=== PATIENT | female | born 1960 | race Caucasian/White ===

== ENCOUNTER 2023-04-19 09:14 | Outpatient (OUT) | payer OTHER, SELFPAY ==
[2023-04-19 09:37] LABS: Basophils Percent Auto 0.7 % (0.2-2.0); Eosinophils Absolute Auto 0.2 10^3/uL (0.0-0.7); Eosinophils Percent Auto 3.3 % (0.9-7.0); Hematocrit 39.3 % (36.0-48.0); Immature Granulocytes Abs Auto 0.02 10^3/uL (0.00-0.03); Immature Granulocytes Pct Auto 0.4 % (0.0-0.5); Lymphocytes Absolute Auto 1.3 10^3/uL (1.2-3.8); Lymphocytes Percent Auto 28.6 % (20.5-60.0); Mean Corpuscular HGB Conc 33.1 g/dL (29.9-35.2); Mean Corpuscular Hemoglobin 31.3 pg (26.7-34.0); Mean Corpuscular Volume 94.5 fL (81.0-99.0); Mean Platelet Volume 9.5 fL (9.5-13.5); Monocytes Absolute Auto 0.3 10^3/uL (0.3-0.8); Monocytes Percent Auto 6.8 % (1.7-12.0); Neutrophils Absolute Auto 2.7 10^3/uL (1.4-6.5); Neutrophils Percent Auto 60.2 % (43.0-75.0); Platelet Count 236 10^3/uL (150-450); Red Blood Count 4.16 10^6/uL (4.20-5.40); Red Cell Distribution Width 11.9 % (11.0-15.0); White Blood Count 4.5 10^3/uL (4.0-11.0)
[2023-04-19 09:59] LABS: Alanine Aminotransferase 29 U/L (14-59); Albumin Globulin Ratio 1.1; Albumin Level 3.9 g/dL (3.4-5.0); Alkaline Phosphatase 78 U/L (46-116); Aspartate Amino Transferase 15 U/L (15-37); BUN Creatinine Ratio 20.3; Bilirubin Total 1.6 mg/dL (0.2-1.0); Carbon Dioxide 29.9 mmol/L (21.0-32.0); Chloride 102 mmol/L (98-107); Chol HDL Ratio 3.2; Cholesterol 234 mg/dL (<=200); Estimated GFR (African America >60 (>=60); Estimated GFR (Non-African Ame >60 (>=60); Globulin 3.5 g/dL; Glucose 108 mg/dL (74-106); HDL Cholesterol 74 mg/dL (40-60); Potassium 3.9 mmol/L (3.5-5.1); Sodium 141 mmol/L (136-145); Thyroid Stimulating Hormone 0.462 uIU/mL (0.358-3.740); Total Protein 7.4 g/dL (6.4-8.2); Triglycerides 88 mg/dL (<=150); VLDL CHOLESTEROL 17.6 mg/dL
== END 2023-04-19 09:15 | disposition home or self-care (01) ==
LOC: LAB 09:17
PROVIDERS: PCP Internal Medicine; Visit Provider Internal Medicine
DX: Z00.00 Encounter for general adult medical examination without abnormal findings (principal); I10 Essential (primary) hypertension; E06.3 Autoimmune thyroiditis; E78.00 Pure hypercholesterolemia, unspecified
CPT/HCPCS: 36415; 80053; 80061; 84443; 85025

== ENCOUNTER 2023-04-28 09:02 | Outpatient (OUT) | payer OTHER, SELFPAY ==
--- NOTE | 2023-04-28 09:07 | MM_ITS ---
Patient Name: JAZLYN STEVEN MR#: [id number] : 1960 Exam Date: 04/28/2023 Ordering Doctor: DR Fco Glasgow D.O. RADIOLOGY REPORT PROCEDURE: MM TOMOSYNTHESIS SCREENING BI COMPARISON: MG MAMM SCREEN 3D RADHA CAD, 04/27/2022. MG MAMM SCREEN 3D RADHA CAD, 04/25/2021. MG MAMM SCREEN 3D RADHA CAD, 04/05/2020. INDICATIONS: Screening Calculator Name NCI Breast Cancer Risk Assessment Tool 5 Year Breast Cancer Risk 1.60% Lifetime Breast Cancer Risk 7.30% Personal Breast Cancer No Personal Ovarian Cancer No Treatments None Family Cancers Aunt-maternal with breast cancer at age 78; Uncle-maternal with lung cancer at age 65. LOCATION: [facility] BREAST COMPOSITION: Heterogeneously dense,which may obscure small masses. FINDINGS: DIAGNOSTIC CATEGORY 2--BENIGN FINDING: RIGHT BREAST: No significant suspicious finding. Scattered benign-appearing calcifications are present. No significant change has occurred. LEFT BREAST: No significant suspicious finding. Scattered benign-appearing calcifications are present. No significant change has occurred. RECOMMENDATIONS: ROUTINE MAMMOGRAM AND CLINICAL EVALUATION IN 12 MONTHS. PLEASE NOTE: A NORMAL MAMMOGRAM DOES NOT EXCLUDE THE POSSIBILITY OF BREAST CANCER. A CLINICALLY SUSPICIOUS PALPABLE LUMP SHOULD BE BIOPSIED. Dictated by: Louis Bahena M.D. on 04/28/2023 at 14:31 Approved by: Louis Bahena M.D. on 04/28/2023 at 14:33
== END 2023-04-28 09:03 | disposition home or self-care (01) ==
LOC: MAMMO 09:03
PROVIDERS: PCP Internal Medicine; Visit Provider Internal Medicine
DX: Z12.31 Encounter for screening mammogram for malignant neoplasm of breast (principal); Z80.3 Family history of malignant neoplasm of breast; Z80.1 Family history of malignant neoplasm of trachea, bronchus and lung
CPT/HCPCS: 77063; 77067

== ENCOUNTER 2024-04-24 08:00 | Outpatient (OUT) | payer OTHER, SELFPAY ==
[2024-04-24 08:32] LABS: Basophils Percent Auto 0.6 % (0.2-2.0); Eosinophils Absolute Auto 0.1 10^3/uL (0.0-0.7); Eosinophils Percent Auto 3.4 % (0.9-7.0); Hematocrit 38.3 % (36.0-48.0); Hemoglobin 12.9 g/dL (12.0-16.0); Immature Granulocytes Abs Auto 0.01 10^3/uL (0.00-0.03); Immature Granulocytes Pct Auto 0.3 % (0.0-0.5); Lymphocytes Absolute Auto 1.2 10^3/uL (1.2-3.8); Lymphocytes Percent Auto 36.5 % (20.5-60.0); Mean Corpuscular HGB Conc 33.7 g/dL (29.9-35.2); Mean Corpuscular Hemoglobin 31.4 pg (26.7-34.0); Mean Corpuscular Volume 93.2 fL (81.0-99.0); Mean Platelet Volume 9.4 fL (9.5-13.5); Monocytes Absolute Auto 0.2 10^3/uL (0.3-0.8); Monocytes Percent Auto 7.4 % (1.7-12.0); Neutrophils Absolute Auto 1.7 10^3/uL (1.4-6.5); Neutrophils Percent Auto 51.8 % (43.0-75.0); Platelet Count 213 10^3/uL (150-450); Red Blood Count 4.11 10^6/uL (4.20-5.40); Red Cell Distribution Width 12.1 % (11.0-15.0); White Blood Count 3.3 10^3/uL (4.0-11.0)
[2024-04-24 09:33] LABS: Alanine Aminotransferase 17 U/L (14-59); Albumin Globulin Ratio 1.2; Albumin Level 3.7 g/dL (3.4-5.0); Alkaline Phosphatase 67 U/L (46-116); Anion Gap 10.2; Aspartate Amino Transferase 14 U/L (15-37); BUN Creatinine Ratio 22.5; Bilirubin Total 1.9 mg/dL (0.2-1.0); Calcium 9.4 mg/dL (8.5-10.1); Carbon Dioxide 31.5 mmol/L (21.0-32.0); Chloride 106 mmol/L (98-107); Chol HDL Ratio 3.6; Cholesterol 242 mg/dL (<=200); Estimated GFR (African America >60 (>=60 mL/min/1.73m^2); Estimated GFR (Non-African Ame >60 (>=60 mL/min/1.73m^2); Glucose 94 mg/dL (74-106); HDL Cholesterol 67 mg/dL (40-60); Potassium 3.7 mmol/L (3.5-5.1); Sodium 144 mmol/L (136-145); Thyroid Stimulating Hormone 0.494 uIU/mL (0.358-3.740); Total Protein 6.7 g/dL (6.4-8.2); Triglycerides 95 mg/dL (<=150)
== END 2024-04-24 08:01 | disposition home or self-care (01) ==
LOC: LAB 08:02
PROVIDERS: PCP Internal Medicine; Visit Provider Internal Medicine
DX: Z00.00 Encounter for general adult medical examination without abnormal findings (principal)
CPT/HCPCS: 36415; 80053; 80061; 84443; 85025

== ENCOUNTER 2024-05-01 10:48 | Outpatient (OUT) | payer OTHER, SELFPAY ==
--- NOTE | 2024-05-01 10:55 | MM_ITS ---
Patient Name: JAZLYN STEVEN MR#: [id number] : 1960 Exam Date: 05/01/2024 Ordering Doctor: DR Fco Glasgow D.O. RADIOLOGY REPORT PROCEDURE: MM TOMOSYNTHESIS SCREENING BI COMPARISON: MG MAMM SCREEN 3D RADHA CAD, 04/27/2022. MM TOMOSYNTHESIS SCREENING BI, 04/28/2023. INDICATIONS: Screening Calculator Name NCI Breast Cancer Risk Assessment Tool 5 Year Breast Cancer Risk 1.70% Lifetime Breast Cancer Risk 7.10% Personal Breast Cancer No Personal Ovarian Cancer No Treatments None Family Cancers Aunt-maternal with breast cancer at age 78; Uncle-maternal with lung cancer at age 65. LOCATION: [facility] BREAST COMPOSITION: The breasts are heterogeneously dense,which may obscure small masses. FINDINGS: DIAGNOSTIC CATEGORY 2--BENIGN FINDING. NO CHANGE FROM COMPARISON. Scattered benign-appearing nodules are present. Scattered benign-appearing calcifications are present. Scattered benign-appearing lymph nodes are present. RIGHT BREAST: No significant suspicious finding. LEFT BREAST: No significant suspicious finding. RECOMMENDATIONS: ROUTINE MAMMOGRAM AND CLINICAL EVALUATION IN 12 MONTHS. PLEASE NOTE: A NORMAL MAMMOGRAM DOES NOT EXCLUDE THE POSSIBILITY OF BREAST CANCER. A CLINICALLY SUSPICIOUS PALPABLE LUMP SHOULD BE BIOPSIED. Dictated by: Mesfin Almodovar MD on 05/01/2024 at 13:45 Approved by: Mesfin Almodovar MD on 05/01/2024 at 13:46
--- OUTSIDE RECORDS SUMMARY | 2024-05-01 11:08 | XMS_ITS | CCD ---
Author Organization [facility] Care Team Providers Care Bowling Ball Finisher Name Role Phone Brittany Robbins Unavailable Silvia Hodges Attending Unavailable FCO GLASGOW Primary Care Physician PEE, DR BARTH Primary Care Unavailable SALVADOR GUERRERO, DR THUY Thyaer Attending Unavailangela PEGUERO JR, DR THUY Thayer Admitting Unavailangela POWELL, DR JESSICA Gardner Consulting Unavailable SALVADOR GUERRERO, DR THUY Thayer Consulting Unavailangela SUTTON, DR MCCLOUD Primary Care Unavailable PEE, DR BARHT Admitting Unavailable PEE, DR BARTH Attending Unavailable PEE, DR BARTH Primary Care Unavailable PEE, DR BARTH Admitting Unavailable PEE, DR BARTH Attending Unavailable PEE, DR BARTH Consulting Unavailable PEE, DR BARTH Primary Care Unavailable PEE, DR BARTH Admitting Unavailable PEE, DR BARTH Attending Unavailable PEE, DR BARTH Consulting Unavailable ANDRE, DR JESSICA Gardner Consulting Unavailable PEE, DR BARTH Primary Care Unavailable PEE, DR BARTH Admitting Unavailable PEE, DR BARTH Attending Unavailable PEE, DR BARTH Consulting Unavailable Fco Glasgow Unavailable Asaad, Imad Unavailable MD Jessica Parada Attending Provider [phone] DO Fco Glasgow Primary Care Provider Asaad, Imchristina Admitting Unavailable Tal, Imchristina Attending Unavailable Fco Glasgow Primary Care Unavailable Brittany Robbins Admitting Unavailable Brittany Robbins Attending Unavailable Allergies Allergy Classification Reported Allergen(s) Allergy Type Date of Onset Reaction(s) Facility (2 sources) hydroCHLOROthiazide / Lisinopril Drug Allergy Unknown [place] Other Medications Current Medications Medication Drug Class(es) Dates Sig (Normalized) Sig (Original) amLODIPine 5 mg oral tablet (4 sources) Dihydropyridine Calcium Channel Nestor Start: 08-13-2022 take 5 mg by mouth once daily Amlodipine Active 5 MG PO Daily August 13, 2022 12:00am Start: 03-25-2022 amlodipine Ora l, Daily, Refills(s) 0 Start Date: 03/25/22 Status: Ordered amLODIPine Benzoate (10 sources) amLODIPine Benzo ate Active hydroCHLOROthiazide 25 mg oral tablet (14 sources) Thiazide Diuretic Start: take 25 mg by mouth once daily Hydrochlorothiazide Active 25 MG PO Daily August 13, 2022 12:00am Start: 06-17-2020 take 1 tablet by hal th once daily hydrochlorothiazide 12.5 mg Tab 25 mg = 2 tab(s), TAKE 1 TABLET BY MOUTH ONCE DAILY FOR 90 DAYS Start Date: 06/17/20 Status: Ordered hydroCHLOROthiaz justino Active levothyroxine sodium 0.025 mg oral tablet (14 sources) l-Thyroxine Start: 08-13-2022 take 25 ug by mouth once daily Levothyroxine Active 25 MCG PO Daily August 13, 2022 12:00am Start: 07-11-2020 take 1 tablet by hal th once daily levothyroxine 25 mcg (0.025 mg) Tab mcg tab(s), Oral, Daily, Refills(s) 0 Start Date: 07/11/20 Status: Ordered Levothyroxine So dium Active losartan potassium 100 mg oral tablet (14 sources) Angiotensin 2 Receptor Nestor Start: 08-13-2022 take 100 mg by mouth once daily Losartan Active 100 MG PO Daily August 13, 2022 12:00am Start: 06-17-2020 take 1 tablet by hal th once daily losartan 50 mg Tab TAKE 1 TABLET BY MOUTH ONCE DAILY FOR 90 DAYS Start Date: 06/17/20 Status: Ordered Losartan Potassi um Active omeprazole 20 mg delayed release oral capsule (13 sources) Proton Pump Inhibitor Start: 08-13-2022 take 1 capsule by mouth once daily Omeprazole (Prilosec) 20 mg Capsule,Delayed Release(Dr/Ec) Active 20 MG PO Daily August 13, 2022 12:00am take 1 tablet by mouth once billie y PriLOSEC OTC 20 MG 1 tablet 30 minutes before morning meal Orally Once a day Active take 1 tablet by mouth once billie y PriLOSEC OTC 20 MG 1 tablet 30 minutes before morning meal Orally Once a day Active PriLOSEC Active Completed/Discontinued Medications Medication Drug Class(es) Dates Sig (Normalized) Sig (Original) polyethylene glycol 3350 580476 mg / potassium chloride 2970 mg / sodium bicarbonate 6740 mg / sodium chloride 5860 mg / sodium sulfate 09922 mg powder for oral solution (8 sources) Osmotic Laxative Start: 07-22-2022 Golytely 236 GM 8oz every 15 minutes Orally at 4pm the day prior to colonoscopy for 1 days Jul, Not-Taking/PRN Problems Active Problems Problem Classification Problem Date Documented Da te Episodic/Chronic Calculus of urinary tract (7 sources) Kidney stone; Translations: [Calculus of kidney] Onset: 03-23-2022 Episodic Disorders of lipid metabolism (2 sources) Hypercholesterolemi a; Translations: [Pure hypercholesterolemi a, unspecified] Chronic Esophageal disorders (2 sources) Gastro-esophageal reflux disease with esophagitis; Translations: [Gastroesophageal reflux disease with esophagitis without hemorrhage] Chronic Essential hypertension (3 sources) Hypertensive disorder; Translations: [Essential hypertension] 03-21-2020 Chronic Genitourinary symptoms and ill-defined conditions (3 sources) Stress incontinence (female) (male); Translations: [Genuine stress incontinence] Onset: 03-25-2022 Chronic Genitourinary symptoms and ill-defined conditions (3 sources) Increased frequency of urination; Translations: [Frequency of micturition] Onset: 03-25-2022 Episodic Other gastrointestinal disorders (5 sources) Diarrhea, unspecified; Translations: [DIARRHEA UNSPECIFIED] Onset: 06-11-2022 Episodic Other screening for suspected conditions (not mental disorders or infectious disease) (4 sources) Encounter for screening mammogram for malignant neoplasm of breast; Translations: [ENC SCR MAMMO MALIG NEOPLASM BREAST] Onset: 04-27-2022 Episodic Residual codes; unclassified (1 source) Family history of malignant neoplasm of breast; Translations: [FAMILY HX MALIG NEOPLASM OF BREAST] Onset: 05-02-2022 Episodic Residual codes; unclassified (1 source) Family history of malignant neoplasm of trachea, bronchus and lung; Translations: [FAM HX MALIG NEOPLSM TRACH BRON LNG] Onset: 05-02-2022 Episodic Thyroid disorders (5 sources) Hypothyroidism; Translations: [Autoimmune thyroiditis] 03-21-2020 Chronic Unclassified (1 source) Diarrhea, unspecified; Translations: [Diarrhea, unspecified] Onset: 08-13-2022 Unclassified (1 source) M79.642 - Pain in left hand; Translations: [M79.642 - Pain in left hand] Onset: 11-22-2021 Past or Other Problems Problem Classification Problem Date Documented Da te Episodic/Chronic Fracture of upper limb (1 source) Nondisplaced fracture of proximal phalanx of left little finger, initial encounter for closed fracture Onset: 11-22-2021 Resolved: 11-22-2021 Episodic Other connective tissue disease (1 source) Pain in left hand Onset: 11-22-2021 Resolved: 11-22-2021 Episodic Results Test Name Value Interpretation Reference Range Facility [facility] 08-13-2022 L Specimen: [id number] Received: 08/13/22 Status: JOSEFINA Hernandezrandi Num: [id number] Spec Type: Surgical Subm Dr: Jessica Parada MD Tissues: A Colon Biopsy (RANDOM COLON BX) Procedures: HE/2, Gross/Micro L4 Age/ Patient Sex Location Account Attending Physician Jazlyn Hernandes 61/F [id number] Jessica Parada MD SPEC NUM: [id number] RECD: 08/13/22 STATUS: JOSEFINA RERandi NUM: [id number] MAIKEL: 08/13/22 DR: Jessica Parada MD ENTERED: 08/13/[address] [facility] [address]: SPEC TYPE: Surgical DEPT: S ORDERED: HE/2, Gross/Micro L4 ORDERED: HE/2, Gross/Micro L4 Pathological Diagnosis Colon, random, biopsy: - Colonic mucosa negative for significant histopathologic changes. - There is no evidence of acute, chronic or microscopic colitis. - Negative for epithelial dysplasia. Clinical Information Screen, rule out microscopic colitis Gross Description Received in formalin labeled with the patient's name, number and random colon biopsy rule out microscopic colitis is one fragment of soft perez tissue measuring 0.4 x 0.2 x 0.1 cm. Entirely submitted in one cassette labeled A1. Microscopic Description Two glass slides with H E stained material have been examined. The microscopic findings support the above pathologic diagnosis. Specimen: [id number] Received: 08/13/22 Status: JOSEFINA Taveras Num: [id number] Spec Type: Surgical Subm Dr: Jessica Parada MD Tissues: A Colon Biopsy (RANDOM COLON BX) Procedures: HE/2, Gross/Micro L4 Patient: Jazlyn Hernandes [id number] (Continued) Specimen: [id number] Received: 08/13/22 (Continued) Signed (signature on file) Jojo De La Torre MD 08/14/22 1219 Specimen: [id number] Received: 08/13/22 Status: JOSEFINA Taveras Num: [id number] Spec Type: Surgical Subm Dr: Jessica Parada MD Tissues: A Colon Biopsy (RANDOM COLON BX) Procedures: HE/2, Lindy/Roberto L4 Patient: Jazlyn Hernandes [id number] (Continued) Specimen: Received: 08/13/22 (Continued) CPT Codes 96840 Specimen: Received: 08/13/22 Status: JOSEFINA Taveras Num: [id number] Spec Type: Surgical Subm Dr: Jessica Parada MD Tissues: A Colon Biopsy (RANDOM COLON BX) Procedures: HE/2, Gross/Micro L4 Patient: Jazlyn Hernandes [id number] (Continued) Signed (signature on file) Jojo De La Torre MD 08/14/22 1219 [facility] STOOL CULTUREon 06-15-2022 Campylobacter Culture Final report Normal [facility] Comment on above: Performed By: #### C XSTOOL #### [facility] [address] [place] [address] Dr. Philly Cedillo E coli Shiga Toxin EIA Negative Normal Negative [facility] Comment on above: Performed By: #### C XSTOOL #### [facility] [address] [address] [address] Philly Cedillo Result 1 Comment Normal [facility] Comment on above: Result Comment: No S almonella or Shigella recovered. Performed By: #### C XSTOOL #### [facility] [address] [address] [address] Philly Cedillo Result Comment: No C ampylobacter species isolated. Salmonella/Shigell a Screen Final report Normal [facility] Comment on above: Performed By: #### C XSTOOL #### [facility] [address] [address] [address] Philly Cedillo C. DIFF PCRon 06-11-2022 C. DIFFICILE PCR Negative Normal NEGATIVE [facility] Comment on above: Performed By: #### C DIFPOC #### [facility] [address] [address] [address] Philly Cedillo MG MAMM SCREEN 3D RADHA CADon 04-27-2022 MG MAMM SCREEN 3D RADHA CAD Patient: JAZLYN HERNANDES Exam Date: 04/27/2022 : 1960 Gender:F Ordering : DR FCO GLASGOW D.O. Admission #: [id number] Family : Order #: [id number] CLICK HERE TO VIEW EXAM RADIOLOGY REPORT PROCEDURE: MAMMOGRAM SCREENING 3D BILATERAL CAD COMPARISON: MG MAMM SCREEN 3D RADHA CAD, 04/05/2020. MG MAMM SCREEN 3D RADHA CAD, 04/25/2021. INDICATIONS: Screening mammography Calculator Name NCI Breast Cancer Risk Assessment Tool 5 Year Breast Cancer Risk 1.60% Lifetime Breast Cancer Risk 7.50% Personal Breast Cancer No Personal Ovarian Cancer No Treatments None Family Cancers Aunt-maternal with breast cancer at age 78; Uncle-maternal with lung cancer at age 65. LOCATION: [facility] BREAST COMPOSITION: Heterogeneously dense,which may obscure small masses. FINDINGS: DIAGNOSTIC CATEGORY 2--BENIGN FINDING. NO CHANGE FROM COMPARISON. Scattered benign-appearing nodules are present. Scattered benign-appearing calcifications are present. Scattered benign-appearing lymph nodes are present. RIGHT BREAST: No significant suspicious finding. LEFT BREAST: No significant suspicious finding. RECOMMENDATIONS: ROUTINE MAMMOGRAM AND CLINICAL EVALUATION IN 12 MONTHS. PLEASE NOTE: A NORMAL MAMMOGRAM DOES NOT EXCLUDE THE POSSIBILITY OF BREAST CANCER. A CLINICALLY SUSPICIOUS PALPABLE LUMP SHOULD BE BIOPSIED. Dictated by: Jessica Powell MD on 04/27/2022 at 08:41 Approved by: Jessica Powell MD on 04/27/2022 at 08:45 Normal [facility] CBC AUTO DIFFon 04-17-2022 BASO # 0.0 103/ul Normal 0.0-0.1 [facility] Comment on above: Performed By: #### C BC #### [facility] [address] [address] [address] Philly Cedillo Basophils/100 WBC (Bld) 0.7 % Normal 0.2-2.0 [facility] Comment on above: Performed By: #### C BC #### [facility] [address] [address] [address] Philly Cedillo EO # 0.1 103/ul Normal 0.0-0.7 [facility] Comment on above: Performed By: #### C BC #### [facility] [address] [address] [address] Philly Cedlilo Eosinophils/100 WBC (Bld) 3.1 % Normal 0.9-7.0 [facility] Comment on above: Performed By: #### C BC #### [facility] [address] [place] [address] Dr. Philly Cedillo Erythrocyte distribution width (RBC) [Ratio] 11.9 % Normal 11.0-15.0 [facility] Comment on above: Performed By: #### C BC #### [facility] [address] [place] [address] Dr. Philly Cedillo Hematocrit (Bld) [Volume fraction] 37.9 % Normal 36.0-48.0 [facility] Comment on above: Performed By: #### C BC #### [facility] [address] [place] [address] Dr. Philly Cedillo Hemoglobin (Bld) [Mass/Vol] 12.8 g/dL Normal 12.0-16.0 [facility] Comment on above: Performed By: #### C BC #### [facility] [address] [place] [address] Dr. Philly Cedillo IG # 0.01 10e3/ul Normal 0.00-0.03 [facility] Comment on above: Performed By: #### C BC #### [facility] [address] [place] [address] Dr. Philly Cedillo IG % 0.2 % Normal 0.0-0.5 [facility] Comment on above: Performed By: #### C BC #### [facility] [address] [place] [address] Dr. Philly Cedillo LYMPH # 1.6 103/ul Normal 1.2-3.8 [facility] Comment on above: Performed By: #### C BC #### [facility] [address] [place] [address] Dr. Philly Cedillo Lymphocytes/100 WBC (Bld) 37.5 % Normal 20.5-60.0 [facility] Comment on above: Performed By: #### C BC #### [facility] [address] [place] [address] Dr. Philly Cedillo MANUAL DIFF REQ NO Normal [facility] Comment on above: Performed By: #### C BC #### [facility] [address] [place] [address] Dr. Philly Cedillo MCH (RBC) [Entitic mass] 30.5 pg Normal 26.7-34.0 [facility] Comment on above: Performed By: #### C BC #### [facility] [address] [place] [address] Dr. Philly Cedillo MCHC (RBC) [Mass/Vol] 33.8 g/dL Normal 29.9-35.2 [facility] Comment on above: Performed By: #### C BC #### [facility] [address] [place] [address] Dr. Philly Cedillo MCV (RBC) [Entitic vol] 90.5 fL Normal 81.0-99.0 [facility] Comment on above: Performed By: #### C BC #### [facility] [address] [place] [address] Dr. Philly Cedillo MONO # 0.3 103/ul Normal 0.3-0.8 [facility] Comment on above: Performed By: #### C BC #### [facility] [address] [place] [address] Dr. Philly Cedillo Monocytes/100 WBC (Bld) 7.3 % Normal 1.7-12.0 [facility] Comment on above: Performed By: #### C BC #### [facility] [address] [place] [address] Dr. Philly Cedillo NEUT # 2.2 103/ul Normal 1.4-6.5 [facility] Comment on above: Performed By: #### C BC #### [facility] [address] [place] [address] Dr. Philly Cedillo Neutrophils/100 WBC (Bld) 51.2 % Normal 43.0-75.0 [facility] Comment on above: Performed By: #### C BC #### [facility] [address] [place] [address] Dr. Philly Cedillo Platelet mean volume (Bld) [Entitic vol] 9.2 fL Critically low 9.5-13.5 [facility] Comment on above: Performed By: #### C BC #### [facility] [address] [address] [address] Philly Cedillo PLT 222 103/ul Normal 150-450 [facility] Comment on above: Performed By: #### C BC #### [facility] [address] [address] [address] Philly Cedillo RBC 4.19 106/ul Critically low 4.20-5.40 [facility] Comment on above: Performed By: #### C BC #### [facility] [address] [address] [address] Philly Cedillo WBC 4.2 103/ul Normal 4.0-11.0 [facility] Comment on above: Performed By: #### C BC #### [facility] [address] [address] [address] Philly Cedillo LIPID PROFILEon 04-17-2022 CHOL-HDL RATIO NORM SEE BELOW Normal [facility] Comment on above: Result Comment: 3.3 - 4.4 LOW RISK 4.4 - 7.1 AVERAGE RISK 7.1 - 11.0 MODERATE RISK >11.0 HIGH RISK Performed By: #### T SH, CMP, LIPID #### [facility] [address] [address] [address] Philly Cedillo Cholesterol [Mass/Vol] 217 mg/dL Critically high <=200 [facility] Comment on above: Performed By: #### T SH, CMP, LIPID #### [facility] [address] [address] [address] Philly Cedillo Cholesterol in HDL [Mass/Vol] 72 mg/dL Critically high 40-60 [facility] Comment on above: Performed By: #### T SH, CMP, LIPID #### [facility] [address] [address] [address] Philly Cedillo Cholesterol in LDL [Mass/Vol] 126.8 mg/dL Normal [facility] Comment on above: Performed By: #### T SH, CMP, LIPID #### [facility] [address] [address] [address] Philly Cedillo Cholesterol.total/ Cholesterol in HDL [Mass ratio] 3.0 {ratio} Normal [facility] Comment on above: Performed By: #### T SH, CMP, LIPID #### [facility] [address] [address] [address] Philly Cedillo HDL NORMAL > or = 60 mg/dl - LOW CARDIOVASCULAR RISK <40 mg/dl - HIGH CARDIOVASCULAR RISK Normal [facility] Comment on above: Performed By: #### T SH, CMP, LIPID #### [facility] [address] [address] [address] Philly Cedillo LDL CALC NORMAL SEE BELOW Normal [facility] Comment on above: Result Comment: <100 mg/dl OPTIMAL 100 - 129 mg/dl NEAR OR ABOVE OPTIMAL 130 - 159 mg/dl BORDERLINE HIGH 160 - 189 mg/dl HIGH >190 mg/dl VERY HIGH Performed By: #### T SH, CMP, LIPID #### [facility] [address] [place] [address] Dr. Philly Cedillo Triglyceride [Mass/Vol] 91 mg/dL Normal <=150 [facility] Comment on above: Performed By: #### T SH, CMP, LIPID #### [facility] [address] [address] [address] Philly Ceidllo VLDL CALC 18.2 mg/dL Normal [facility] Comment on above: Performed By: #### T SH, CMP, LIPID #### [facility] [address] [place] [address] Dr. Philly Cedillo PROF 14(COMP METB)on 022 Albumin [Mass/Vol] 4.3 g/dL Normal 3.4-5.0 [facility] Comment on above: Performed By: #### T SH, CMP, LIPID #### [facility] [address] [place] [address] Dr. Philly Cedillo Albumin/Globulin [Mass ratio] 1.3 {ratio} Normal [facility] Comment on above: Performed By: #### T SH, CMP, LIPID #### [facility] [address] [address] [address] Philly Cedillo ALP [Catalytic activity/Vol] 67 U/L Normal 46-116 [facility] Comment on above: Performed By: #### T SH, CMP, LIPID #### [facility] [address] [address] [address] Phlily Cedillo ALT [Catalytic activity/Vol] 21 U/L Normal 14-59 [facility] Comment on above: Performed By: #### T SH, CMP, LIPID #### [facility] [address] [address] [address] Philly Cedillo Anion gap [Moles/Vol] 10.9 mmol/L Normal [facility] Comment on above: Performed By: #### T SH, CMP, LIPID #### [facility] [address] [address] [address] Philly Cedillo AST [Catalytic activity/Vol] 16 U/L Normal 15-37 [facility] Comment on above: Performed By: #### T SH, CMP, LIPID #### [facility] [address] [place] [address] Dr. Philly Cedillo Bilirubin [Mass/Vol] 2.1 mg/dL Critically high 0.2-1.0 [facility] Comment on above: Performed By: #### T SH, CMP, LIPID #### [facility] [address] [address] [address] Philly Cedillo Calcium [Mass/Vol] 9.6 mg/dL Normal 8.5-10.1 [facility] Comment on above: Performed By: #### T SH, CMP, LIPID #### [facility] [address] [address] [address] Philly Cedillo Chloride [Moles/Vol] 102 mmol/L Normal 98-107 [facility] Comment on above: Performed By: #### T SH, CMP, LIPID #### [facility] [address] [address] [address] Philly Cedillo CO2 [Moles/Vol] 32.2 mmol/L Critically high 21.0-32.0 [facility] Comment on above: Performed By: #### T SH, CMP, LIPID #### [facility] [address] [address] [address] Philly Cedillo Creatinine [Mass/Vol] 0.66 mg/dL Normal 0.55-1.02 [facility] Comment on above: Performed By: #### T SH, CMP, LIPID #### [facility] [address] [address] [address] Philly Cedillo EGFR-AF TOGOLESE >60 Normal >=60 [facility] Comment on above: Performed By: #### T SH, CMP, LIPID #### [facility] [address] [address] [address] Philly Cedillo EGFR-NON AF TOGOLESE >60 Normal >=60 [facility] Comment on above: Performed By: #### T SH, CMP, LIPID #### [facility] [address] [address] [address] Philly Cedillo Globulin (S) [Mass/Vol] 3.2 g/dL Normal [facility] Comment on above: Performed By: #### T SH, CMP, LIPID #### [facility] [address] [address] [address] Philly Cedillo Glucose [Mass/Vol] 95 mg/dL Normal 74-106 [facility] Comment on above: Performed By: #### T SH, CMP, LIPID #### [facility] [address] [address] [address] Philly Cedillo Potassium [Moles/Vol] 4.1 mmol/L Normal 3.5-5.1 [facility] Comment on above: Performed By: #### T SH, CMP, LIPID #### [facility] [address] [address] [address] Philly Cedillo Protein [Mass/Vol] 7.5 g/dL Normal 6.4-8.2 [facility] Comment on above: Performed By: #### T SH, CMP, LIPID #### [facility] [address] [address] [address] Philly Cedillo Sodium [Moles/Vol] 141 mmol/L Normal 136-145 [facility] Comment on above: Performed By: #### T SH, CMP, LIPID #### [facility] [address] [address] [address] Philly Cedillo Urea nitrogen [Mass/Vol] 18.0 mg/dL Normal 7.0-18.0 [facility] Comment on above: Performed By: #### T SH, CMP, LIPID #### [facility] [address] [address] [address] Philly Cedillo Urea nitrogen/Creatinin e [Mass ratio] 27.3 mg/mg Normal [facility] Comment on above: Performed By: #### T SH, CMP, LIPID #### [facility] [id number] Philly Cedillo TSHon 04-17-2022 TSH 0.587 uIU/mL Normal 0.358-3.740 [facility] Comment on above: Performed By: #### T SH, CMP, LIPID #### [facility] [id number] Philly Cedillo Patient Educationon 03-25-20 Patient Education Urology Kidney Stones Kidney stones are rock-like masses that form inside of the kidneys. Kidneys are organs that make pee (urine). A kidney stone may move into other parts of the urinary tract, including: ? The tubes that connect the kidneys to the bladder (ureters). ? The bladder. ? The tube that carries urine out of the body (urethra). Kidney stones can cause very bad pain and can block the flow of pee. The stone usually leaves your body (passes) through your pee. You may need to have a doctor take out the stone. What are the causes? Kidney stones may be caused by: ? A condition in which certain glands make too much parathyroid hormone (primary hyperparathyroidism) . ? A buildup of a type of crystals in the bladder made of a chemical called uric acid. The body makes uric acid when you eat certain foods. ? Narrowing (stricture) of one or both of the ureters. ? A kidney blockage that you were born with. ? Past surgery on the kidney or the ureters, such as gastric bypass surgery. What increases the risk? You are more likely to develop this condition if: ? You have had a kidney stone in the past. ? You have a family history of kidney stones. ? You do not drink enough water. ? You eat a diet that is high in protein, salt (sodium), or sugar. ? You are overweight or very overweight (obese). What are the signs or symptoms? Symptoms of a kidney stone may include: ? Pain in the side of the belly, right below the ribs (flank pain). Pain usually spreads (radiates) to the groin. ? Needing to pee often or right away (urgently). ? Pain when going pee (urinating). ? Blood in your pee (hematuria). ? Feeling like you may vomit (nauseous). ? Vomiting. ? Fever and chills. How is this treated? Treatment depends on the size, location, and makeup of the kidney stones. The stones will often pass out of the body through peeing. You may need to: ? Drink more fluid to help pass the stone. In some cases, you may be given fluids through an IV tube put into one of your veins at the hospital. ? Take medicine for pain. ? Make changes in your diet to help keep kidney stones from coming back. Sometimes, medical procedures are needed to remove a kidney stone. This may involve: ? A procedure to break up kidney stones using a beam of light (laser) or shock waves. ? Surgery to remove the kidney stones. Follow these instructions at home: Medicines ? Take begi-uqv-deucqcr and prescription medicines only as told by your doctor. ? Ask your doctor if the medicine prescribed to you requires you to avoid driving or using heavy machinery. Eating and drinking ? Drink enough fluid to keep your pee pale yellow. You may be told to drink at least 8?10 glasses of water each day. This will help you pass the stone. ? If told by your doctor, change your diet. This may include: ? Limiting how much salt you eat. ? Eating more fruits and vegetables. ? Limiting how much meat, poultry, fish, and eggs you eat. ? Follow instructions from your doctor about eating or drinking restrictions. General instructions ? Collect pee samples as told by your doctor. You may need to collect a pee sample: ? 24 hours after a stone comes out. ? 8?12 weeks after a stone comes out, and every 6?12 months after that. ? Strain your pee every time you pee (urinate), for as long as told. Use the strainer that your doctor recommends. ? Do not throw out the stone. Keep it so that it can be tested by your doctor. ? Keep all follow-up visits as told by your doctor. This is important. You may need follow-up tests. How is this prevented? To prevent another kidney stone: ? Drink enough fluid to keep your pee pale yellow. This is the best way to prevent kidney stones. ? Eat healthy foods. ? Avoid certain foods as told by your doctor. You may be told to eat less protein. ? Stay at a healthy weight. Where to find more information ? National Kidney Foundation (NKF): www.kidney.org ? U[employer] Care Foundation (UCF): www.urologyhealth.or g Contact a doctor if: ? You have pain that gets worse or does not get better with medicine. Get help right away if: ? You have a fever or chills. ? You get very bad pain. ? You get new pain in your belly (abdomen). ? You pass out (faint). ? You cannot pee. Summary ? Kidney stones are rock-like masses that form inside of the kidneys. ? Kidney stones can cause very bad pain and can block the flow of pee. ? The stones will often pass out of the body through peeing. ? Drink enough fluid to keep your pee pale yellow. This information is not intended to replace advice given to you by your health care provider. Make sure you discuss any questions you have with your health care provider. Document Released: 10/19/2008 Document Revised: 09/19/2019 Document Reviewed: 09/19/2019 [employer] Patient Education ? 2019 [employer] [facility] 03-25-2022 [facility] [id number] #[id number]:[id number] Normal [facility] Urology Office/Clinic Noteon 03-25-2022 Urology Office/Clinic Note Chief Complaint Pt is here for 1 year w/ KUB HPI Staff Jazlyn is a 61 y.o. female here for 1 year follow up w/ KUB. Previous Dx: history of kidney stones, leaking of urine, microscopic hematuria. S/P ESWL done on 04/10/20. DLS pt. KUB done on 03/23/22 showed stable 4mm RT nephrolith. Pt states no kidney episodes since last visit. Dysuria: denies Incomplete bladder emptying: denies Hematuria: denies Frequency: denies Urgency: yes Nocturia: denies Stream: steady stream Leaking: yes Post void dripping: denies Wearing pads/ Depends: yes wears pads Urge incontinence: denies Stress incontinence: yes coughing sneezing Incontinence without Sensory Awareness: denies Abdominal pain: denies Flank pain: denies Sexual complaints: _ History of Present Illness Tests reviewed: reviewed UA & KUB. I have reviewed the previous health record information and history for this patient from Dr. Peguero. I have reviewed and verified the staff HPI to be accurate for this encounter. There have been no associated fever, chills, flank pain, or blood in the urine. Denies any urinary infections since last encounter. Review of Systems PHQ Score Initial Depression Screen Score: 0 ROS - Provider Constitutional: denies weight loss, denies hot flashes. Eyes: denies eye problems. Gastrointestinal: denies nausea, denies vomiting. Cardiovascular: denies chest pain or angina. Integumentary: no dryness Musculoskeletal: denies musculoskeletal symptoms. ENMT: denies otolaryngeal symptoms. Respiratory: no shortness of breath. Heme/Lymph: denies easy bleeding tendency, denies easy bruising tendency. Psychiatric: no confusion, no anxiety. Genitourinary: See HPI. Physical Exam Vitals & Measurements HR: 80(Peripheral) BP: 125/87 HT: 66 in HT: 168 cm WT: 62 kg WT: 136.4 lb BMI: 21.97 General Appearance: alert , no acute distress, well nourished, well developed female. Genitourinary: bladder nonpalpable, no flank pain. Assessment/Plan DLS pt. UA today negative for blood and infection. 1. Kidney stone (N20.0: Calculus of kidney) S/P ESWL done 04/10/20. KUB done 03/23/22 shows stable 4mm RT nephrolith. KUB done 02/18/2021 shows grossly stable right nephrolithiasis. Pt states no kidney episodes since last visit. Will continue to monitor. Pt to continue with dietary modifications: drink H2O, less salt, more citrus. Discussed met w/up if pt wishes in the future. Follow up with 1 year in KUB. 2. Stress incontinence (N39.3: Stress incontinence (female) (male)) Ongoing, unchanged with coughing, sneezing, walking. Pt has had 3 children vaginally. Reports to wearing a pad 1/day. Empties completely. Denies urge incontinence. Discussed risks and benefits of Bulkamid for stress incontinence vs TVT (might be less dry w/Bulkamid vs sling). Educational pamphlet provided for pt's review. -Pt wishes to take time to think about procedure before proceeding, understands she will need a pelvic exam prior. All questions/concerns were discussed. Pt. to call the office if she encounters any issues prior. Pt. acknowledges understanding. Pt to call if she wishes to proceed. 3. Frequency of urination (R35.0: Frequency of micturition) Reports frequency, every half hour, because she has the urge but can hold. Discussed Kegels and behavioral modifications for frequency before medication management or procedure. Educational pamphlet provided for pt's review. Follow-up With When Contact Information Carroll SCOTT, Silvia Woody, URL, URO Additional Instructions: F/u 1 yr w/KUB Patient Education Kidney Stones, [id number] I, Trinity Cagle, personally scribed for Dr. Hodges on 03/25/2022 09:41:55. . Documentation recorded by the scribe, Trinity Cagle, accurately reflects the services(s) I performed and decisions made by me. Authenticated by Dr. Hodges on 03/25/2022 09:43:53. Problem List/Past Medical History Ongoing Frequency of urination History of kidney stones HTN (hypertension) Hypothyroid Kidney stone Leaking of urine Microscopic hematuria Stress incontinence Historical No qualifying data Procedure/Surgical History ESWL of kidney (04/10/2020), Colonoscopy. Medications amlodipine, Oral, Daily hydrochlorothiazide 12.5 mg Tab, 25 mg= 2 tab(s) levothyroxine 25 mcg (0.025 mg) Tab, Oral, Daily losartan 50 mg Tab Allergies No Known Allergies Social History Alcohol - Low Risk, 03/21/2020 Tobacco Never (less than 100 in lifetime) Tobacco Use:., 04/18/2020 Never (less than 100 in lifetime) Tobacco Use:., 03/21/2020 Family History Hypertension: Mother and Father. Kidney stones: Mother and Father. TIA: Father. Immunizations Vaccine Date Status Comments zoster vaccine, inactivated 07/18/2021 Recorded zoster vaccine, inactivated 05/13/2021 Recorded SARS-CoV-2 (COVID-19) mRNA-1273 vaccine 04/22/2021 Recorded SARS-CoV-2 (COVID-19) mRNA-1273 vaccine 08/30/2020 R (more content not included)... Normal [facility] Comment on above: Result Comment: Elec tronically Signed By: Silvia Hodges MD\.br\Date and Time Signed: 03/25/22 09:43 EST\.br\Electronically Co-Signed By: Trinity Cagle\.br\Date and Time Co-Signed: 03/25/22 09:42 EST XR KUB 1 VIEWon 03-23-2022 XR KUB 1 VIEW EXAMINATION: XR KUB 1 VIEW HISTORY: Kidney stone COMPARISON: 02/18/2021 FINDINGS: KIDNEY/URETER - RIGHT: Stable 4 mm calcification projects over the lower pole KIDNEY/URETER - LEFT: No visible renal or ureteral calcifications. PELVIS: No visible ureteral calcifications. Any visible calcifications favor phleboliths. BOWEL: No abnormal dilation or deviation. BONES: No acute abnormality. OTHER: Sclerosis of the pubic symphysis IMPRESSION: Stable 4 mm nephrolith Electronically authenticated by: JESSICA POWELL Date: 2022-03-23 17:33 Normal [facility] XR hand LT min 3V*on 022 XR hand LT min 3V* [facility] [employer] Other XR hand LT min 3V* [facility] [employer] Other XR hand LT min 3V* [address] [facility] [employer] Other XR hand LT min 3V* [place] [address] [employer] Other XR hand LT min 3V* XRay Report [employer] Other XR hand LT min 3V* Signed [employer] Other XR hand LT min 3V* Patient: Jazlyn Hernandes MR#: [id number] [employer] Other XR hand LT min 3V* : 1960 Acct:[id number] [employer] Other XR hand LT min 3V* Age/Sex: 61 / F ADM Date: 11/22/21 [employer] Other XR hand LT min 3V* Loc: XDUCLY Room: Type: REG CLI [employer] Other XR hand LT min 3V* Attending Dr: Brittany HAYES [employer] Other XR hand LT min 3V* Copies to: ABIGAIL Mckeon [employer] Other XR hand LT min 3V* Ordering Provider: ABIGAIL Mckeon [employer] Other XR hand LT min 3V* Date of Service: 11/22/21 [employer] Other XR hand LT min 3V* XR/XR hand LT min 3V*: Left hand pain [employer] Other XR hand LT min 3V* 3 viewsLEFT hand plain film [employer] Other XR hand LT min 3V* COMPARISON:None [facility] [employer] Other XR hand LT min 3V* HISTORY:LEFT hand injury [employer] Other XR hand LT min 3V* Fracture involving the base of the 5th proximal phalanx identified. No dislocation. [employer] Other XR hand LT min 3V* XR/XR hand LT min 3V* [employer] Other XR hand LT min 3V* IMPRESSION:LEFT 5th proximal phalanx fracture [employer] Other XR hand LT min 3V* Impression dictated by: Mark Mathur M.D.11/22/2021 12:00 PM [place] [employer] Other XR hand LT min 3V* Dictation Location: [facility] [employer] Other XR hand LT min 3V* Transcribed By: [facility] 11/22/21 1200 [facility] [employer] Other XR hand LT min 3V* Dictated By: Mark Mathur DO 11/22/21 1154 [facility] [employer] Other XR hand LT min 3V* Signed By: [employer] Other XR hand LT min 3V* 11/22/21 1200 [facility] [employer] Other XR hand LT min 3V* [facility] Main [place] [address] [place] [address] XRay Report Signed Patient: Jazlyn Hernandes MR#: [id number] : 1960 Acct:[id number] Age/Sex: 61 / F ADM Date: 11/22/21 Loc: XDUCLY Room: Type: [facility] Attending Dr: Brittany HAYES Copies to: ABIGAIL Mckeon Ordering Provider: ABIGAIL Mckeon Date of Service: 11/22/21 XR/XR hand LT min 3V*: Left hand pain 3 viewsLEFT hand plain film COMPARISON:None HISTORY:LEFT hand injury Fracture involving the base of the 5th proximal phalanx identified. No dislocation. XR/XR hand LT min 3V* IMPRESSION:LEFT 5th proximal phalanx fracture Impression dictated by: Mark Mathur M.D.11/22/2021 12:00 PM Dictation Location: [address] [address] Transcribed By: [facility] 11/22/21 1200 Dictated By: Mark Mathur DO 11/22/21 1154 Signed By: 11/22/21 1200 Normal [facility] 08-28-2021 Albumin [Mass/Vol] 5.0 g/dL Normal 3.6-5.1 [place] [employer] Assistant Comment on above: Performed By: #### P HOS, BMP, ALB #### [facility] [address] [place], [place] [id number] Basic Metabolic Panelon 08-15 Anion gap [Moles/Vol] 16 mmol/L Normal 12-20 [facility] Pest Controller Assistant Comment on above: Result Comment: Effe ctive 05/22/2019 reference range changed. Performed By: #### P HOS, BMP, ALB #### [facility] [address] [place], [place] [id number] Calcium [Mass/Vol] 9.8 mg/dL Normal 8.6-10.2 [place] [employer] Assistant Comment on above: Performed By: #### P HOS, BMP, ALB #### [facility] [address], [place] [id number] Chloride [Moles/Vol] 104 mmol/L Normal 98-107 [facility] P[employer] Controller Assistant Comment on above: Performed By: #### P HOS, BMP, ALB #### [facility] [address], [place] [id number] CO2 [Moles/Vol] 24 mmol/L Normal 20-31 [facility] Specialist Comment on above: Performed By: #### P HOS, BMP, ALB #### [facility] [address] [place], [place] [id number] Creatinine [Mass/Vol] 0.7 mg/dL Normal 0.6-1.4 [facility] P[employer] Controller Assistant Comment on above: Performed By: #### P HOS, BMP, ALB #### [facility] [address] [place], [place] [id number] eGFRAA 113 mL/min/1.73m2 Normal >[address] [facility] Specialist Comment on above: Performed By: #### P HOS, BMP, ALB #### [facility] [address] [place], [place] [id number] eGFRNAA 93 mL/min/1.73m2 Normal >60 [facility] Pest Controller Assistant Comment on above: Performed By: #### P HOS, BMP, ALB #### [facility] [address] [place], [place] [id number] Glucose [Mass/Vol] 101 mg/dL High 65-99 Paul [place] [employer] Assistant Comment on above: Result Comment: For FASTING Glucose --- ADA reference ranges: Normal 65-99 mg/dl Prediabetes 100-125 Diabetes >/= 126 Performed By: #### P HOS, BMP, ALB #### [facility] [address] [place], [place] [id number] Potassium [Moles/Vol] 4.3 mmol/L Normal 3.5-5.5 [facility] Specialist Comment on above: Performed By: #### P HOS, BMP, ALB #### [facility] [address] [place], [place] [id number] Sodium [Moles/Vol] 140 mmol/L Normal 135-146 Paul [facility] Pest Controller Assistant Comment on above: Performed By: #### P HOS, BMP, ALB #### [facility] [address], [place] [id number] Urea nitrogen [Mass/Vol] 15 mg/dL Normal 7-25 [facility] Specialist Comment on above: Performed By: #### P HOS, BMP, ALB #### [facility] [address], [place] [id number] Parathyroid Hormone, Intacto n 08-28-2021 PTH 64.58 pg/mL Normal 16.00-65.00 [facility] Comment on above: Performed By: #### P TH* #### [facility] [address], [place] [id number] Phosphoruson 08-28-2021 Phosphate [Mass/Vol] 3.3 mg/dL Normal 2.2-4.4 [facility] Specialist Comment on above: Performed By: #### P HOS, BMP, ALB #### [facility] [address] [place], [place] [id number] Calciumon 07-15-2021 Calcium [Mass/Vol] 10.4 mg/dL High 8.6-10.2 [place] [facility] P[employer] Controller Assistant Comment on above: Performed By: #### C A #### [facility] [address] [place] [address], [place] [id number] Complete Blood Count with Au to Diffon 04-22-2021 Basophils (Bld) [#/Vol] 0.03 10*3/uL Normal 0.00-0.20 [facility] P[employer] Controller Assistant Comment on above: Performed By: #### T SH, CMP, VITD, LIPD, CBCAD #### [facility] [address] [place], [place] [id number] Basophils/100 WBC (Bld) 0.7 % Normal [facility] Specialist Comment on above: Performed By: #### T SH, CMP, VITD, LIPD, CBCAD #### [facility] [address] [place], [place] [id number] Eosinophils (Bld) [#/Vol] 0.13 10*3/uL Normal 0.02-0.50 [facility] Pest Controller Assistant Comment on above: Performed By: #### T SH, CMP, VITD, LIPD, CBCAD #### [facility] [address] [place], [place] [id number] Eosinophils/100 WBC (Bld) 3.1 % Normal [facility] Pest Controller Assistant Comment on above: Performed By: #### T SH, CMP, VITD, LIPD, CBCAD #### [facility] [address] [place], [place] [id number] Erythrocyte distribution width (RBC) [Ratio] 12.0 % Normal 11.0-15.0 [facility] P[employer] Controller Assistant Comment on above: Performed By: #### T SH, CMP, VITD, LIPD, CBCAD #### [facility] [address] [place], [place] [id number] Hematocrit (Bld) [Volume fraction] 41.4 % Normal 35.0-47.0 [facility] Pest Controller Assistant Comment on above: Performed By: #### T SH, CMP, VITD, LIPD, CBCAD #### [facility] [address] [place], [place] [id number] Hemoglobin (Bld) [Mass/Vol] 13.5 g/dL Normal 11.6-15.5 [facility] Pest Controller Assistant Comment on above: Performed By: #### T SH, CMP, VITD, LIPD, CBCAD #### [facility] [address] [place], [place] [id number] Lymphocytes (Bld) [#/Vol] 1.3 10*3/uL Normal 0.9-3.9 [place] P[employer] Controller Assistant Comment on above: Performed By: #### T SH, CMP, VITD, LIPD, CBCAD #### [facility] [address] [place], [place] [id number] Lymphocytes/100 WBC (Bld) 30.5 % Normal [facility] Specialist Comment on above: Performed By: #### T SH, CMP, VITD, LIPD, CBCAD #### [facility] [address] [place], [place] [id number] MCH (RBC) [Entitic mass] 30.9 pg Normal 27.0-33.0 [facility] Specialist Comment on above: Performed By: #### T SH, CMP, VITD, LIPD, CBCAD #### [facility] [address] [place], [place] [id number] MCHC (RBC) [Mass/Vol] 32.6 g/dL Normal 32.0-36.0 [facility] Specialist Comment on above: Performed By: #### T SH, CMP, VITD, LIPD, CBCAD #### [facility] [address] [place] [address], [place] [id number] MCV (RBC) [Entitic vol] 95 fL Normal 80-100 [facility] Specialist Comment on above: Performed By: #### T SH, CMP, VITD, LIPD, CBCAD #### [facility] [address] [place], [place] [id number] Monocytes (Bld) [#/Vol] 0.3 10*3/uL Normal 0.2-0.9 [facility] Specialist Comment on above: Performed By: #### T SH, CMP, VITD, LIPD, CBCAD #### [facility] [address] [place], [place] [id number] Monocytes/100 WBC (Bld) 7.5 % Normal [facility] Specialist Comment on above: Performed By: #### T SH, CMP, VITD, LIPD, CBCAD #### [facility] [address] [place], [place] [id number] Neutrophils (Bld) [#/Vol] 2.4 10*3/uL Normal 1.5-7.8 [facility] Specialist Comment on above: Performed By: #### T SH, CMP, VITD, LIPD, CBCAD #### [facility] [address] [place], [place] [id number] Neutrophils/100 WBC (Bld) 58.0 % Normal [facility] Specialist Comment on above: Performed By: #### T SH, CMP, VITD, LIPD, CBCAD #### [facility] [address] [place], [place] [id number] Platelet mean volume (Bld) [Entitic vol] 9.90 fL Normal 7.50-12.50 [facility] Specialist Comment on above: Performed By: #### T SH, CMP, VITD, LIPD, CBCAD #### [facility] [address] [place], [place] [id number] Platelets (Bld) [#/Vol] 255 10*3/uL Normal 140-400 [facility] Pest Controller Assistant Comment on above: Performed By: #### T SH, CMP, VITD, LIPD, CBCAD #### [facility] [address] [place], [place] [id number] RBC (Bld) [#/Vol] 4.37 10*6/uL Normal 3.90-5.20 [facility] Pest Controller Assistant Comment on above: Performed By: #### T SH, CMP, VITD, LIPD, CBCAD #### [facility] [address] [place], [place] [id number] RDW-SD 41.7 fL Normal 37.0-50.0 [facility] Pest Controller Assistant Comment on above: Performed By: #### T SH, CMP, VITD, LIPD, CBCAD #### [facility] [address] [place], [place] [id number] WBC (Bld) [#/Vol] 4.1 10*3/uL Normal 3.8-11.0 Paul [facility] Pest Controller Assistant Comment on above: Performed By: #### T SH, CMP, VITD, LIPD, CBCAD #### [facility] [address] [place], [place] [id number] Comprehensive Metabolic Pane [facility] 04-22-2021 Albumin [Mass/Vol] 5.0 g/dL Normal 3.6-5.1 [place] P[employer] Controller Assistant Comment on above: Performed By: #### T SH, CMP, VITD, LIPD, CBCAD #### [facility] [address] [place] [address], [place] [id number] Albumin/Globulin [Mass ratio] 2.5 {ratio} Normal 1.0-2.5 [facility] Specialist Comment on above: Performed By: #### T SH, CMP, VITD, LIPD, CBCAD #### [facility] [address] [place], [place] [id number] ALP [Catalytic activity/Vol] 85 U/L Normal 35-119 [facility] Specialist Comment on above: Performed By: #### T SH, CMP, VITD, LIPD, CBCAD #### [facility] [address] [place], [place] [id number] ALT [Catalytic activity/Vol] 14 U/L Normal 6-33 [facility] Specialist Comment on above: Result Comment: 04/16 Female reference range changed. Performed By: #### T SH, CMP, VITD, LIPD, CBCAD #### [facility] [address] [place], [place] [id number] Anion gap [Moles/Vol] 18 mmol/L Normal 12-20 [facility] Specialist Comment on above: Result Comment: Effe ctive 05/22/2019 reference range changed. Performed By: #### T SH, CMP, VITD, LIPD, CBCAD #### [facility] [address] [place], [place] [id number] AST [Catalytic activity/Vol] 14 U/L Normal 9-34 [facility] Specialist Comment on above: Performed By: #### T SH, CMP, VITD, LIPD, CBCAD #### [facility] [address] [place], [place] [id number] Bilirubin [Mass/Vol] 1.11 mg/dL Normal 0.30-1.20 [facility] Pest Controller Assistant Comment on above: Performed By: #### T SH, CMP, VITD, LIPD, CBCAD #### [facility] [address] [facility] [place] [id number] BUN/CREA 33 Ratio High 6-22 [facility] Specialist Comment on above: Performed By: #### T SH, CMP, VITD, LIPD, CBCAD #### [facility] [address] [place], [place] [id number] Calcium [Mass/Vol] 10.5 mg/dL High 8.6-10.2 [facility] Comment on above: Performed By: #### T SH, CMP, VITD, LIPD, CBCAD #### [facility] [address] [facility] [place] [id number] Chloride [Moles/Vol] 103 mmol/L Normal 98-107 [facility] Specialist Comment on above: Performed By: #### T SH, CMP, VITD, LIPD, CBCAD #### [facility] [address] [place] [place] [id number] CO2 [Moles/Vol] 27 mmol/L Normal 20-31 [facility] Specialist Comment on above: Performed By: #### T SH, CMP, VITD, LIPD, CBCAD #### [facility] [address] [place] [id number] Creatinine [Mass/Vol] 0.6 mg/dL Normal 0.6-1.4 [facility] Specialist Comment on above: Performed By: #### T SH, CMP, VITD, LIPD, CBCAD #### [facility] [address] [place], [place] [id number] eGFRAA 121 mL/min/1.73m2 Normal >[address] [facility] Specialist Comment on above: Performed By: #### T SH, CMP, VITD, LIPD, CBCAD #### [facility] [address] [place], [place] [id number] eGFRNAA 100 mL/min/1.73m2 Normal >[address] [facility] Specialist Comment on above: Performed By: #### T SH, CMP, VITD, LIPD, CBCAD #### [facility] [address] [facility] [id number] Globulin (S) [Mass/Vol] 2.0 g/dL Normal 1.9-3.7 [facility] Specialist Comment on above: Performed By: #### T SH, CMP, VITD, LIPD, CBCAD #### [facility] [address] [facility] [id number] Glucose [Mass/Vol] 101 mg/dL High 65-99 [facility] Pest Controller Assistant Comment on above: Result Comment: For FASTING Glucose --- ADA reference ranges: Normal 65-99 mg/dl Prediabetes 100-125 Diabetes >/= 126 Performed By: #### T SH, CMP, VITD, LIPD, CBCAD #### [facility] [address] [place], [place] [id number] Potassium [Moles/Vol] 4.6 mmol/L Normal 3.5-5.5 [facility] Pest Controller Assistant Comment on above: Performed By: #### T SH, CMP, VITD, LIPD, CBCAD #### [facility] [address] [place], [place] [id number] Protein [Mass/Vol] 7.0 g/dL Normal 6.1-8.1 [facility] Pest Controller Assistant Comment on above: Performed By: #### T SH, CMP, VITD, LIPD, CBCAD #### [facility] [address] [place], [place] [id number] Sodium [Moles/Vol] 143 mmol/L Normal 135-146 [facility] Pest Controller Assistant Comment on above: Performed By: #### T SH, CMP, VITD, LIPD, CBCAD #### [facility] [address] [place], [place] [id number] Urea nitrogen [Mass/Vol] 20 mg/dL Normal 7-25 [facility] Pest Controller Assistant Comment on above: Performed By: #### T SH, CMP, VITD, LIPD, CBCAD #### [facility] [address] [place], [place] [id number] Lipid Panelon 04-22-2021 Cholesterol [Mass/Vol] 249 mg/dL High 125-200 [facility] Pest Controller Assistant Comment on above: Result Comment: Low risk < 200mg/dL Borderline risk 201-239 mg/dl High risk > or equal to 240 Performed By: #### T SH, CMP, VITD, LIPD, CBCAD #### [facility] [address] [place], [place] [id number] Cholesterol in HDL [Mass/Vol] 58 mg/dL Normal >40 [facility] Pest Controller Assistant Comment on above: Result Comment: High Cardiovascular Risk HDL <40 mg/dL Low Cardiovascular Risk HDL > or equal to 60 mg/dl Performed By: #### T SH, CMP, VITD, LIPD, CBCAD #### [facility] [address] [place], [place] [id number] Cholesterol in LDL [Mass/Vol] 174 mg/dL Normal [facility] Comment on above: Result Comment: LDL ATP III CLASSIFICATION LDL less than 100 mg/dl Optimal LDL 100-129 mg/dl Near or above optimal LDL 130-159 Borderline high LDL 160-189 High LDL greater than 189 mg/dl Very High Performed By: #### T SH, CMP, VITD, LIPD, CBCAD #### [facility] [address] [place], [place] [id number] Cholesterol in VLDL [Mass/Vol] 17 mg/dL Normal [facility] Specialist Comment on above: Performed By: #### T SH, CMP, VITD, LIPD, CBCAD #### [facility] [address] [place], [place] [id number] Cholesterol.total/ Cholesterol in HDL [Mass ratio] 4 {ratio} Normal [facility] Comment on above: Performed By: #### T SH, CMP, VITD, LIPD, CBCAD #### [facility] [address] [place], [place] [id number] Triglyceride [Mass/Vol] 84 mg/dL Normal 30-150 [facility] Specialist Comment on above: Result Comment: TRIG ATPIII CLASSIFICATIONS TRIG less than 150 mg/dl Normal TRIG 150-199 mg/dl Borderline High TRIG 200-500 mg/dl High TRIG greather than 500 mg/dl Very High Performed By: #### T SH, CMP, VITD, LIPD, CBCAD #### [facility] [address] [place], [place] [id number] TSHon 04-22-2021 TSH 0.559 uIU/mL Normal 0.400-4.500 [facility] Specialist Comment on above: Performed By: #### T SH, CMP, VITD, LIPD, CBCAD #### [facility] [address] [place], [place] [id number] Vitamin D 25-OHon 04-22-2021 VIT D 25 OH 36 ng/ml Normal >29 [facility] Specialist Comment on above: Result Comment: Verna min D Status Deficiency <20 ng/mL Insufficiency 20-29 ng/mL Optimal 30-100 ng/mL Possible Toxicity >=150 ng/mL Performed By: #### T SH, CMP, VITD, LIPD, CBCAD #### [facility] [address] [place] [id number] Vital Signs Date Time Vital Sign Value Performing Clinician Facility 08-13-2022 11:02-0400 Diastolic blood pressure 84 mm[Hg] DO Fco Ball Work Phone: [facility] 08-13-2022 11:02-0400 Heart rate 76 /min DO Fco Ball Work Phone: [facility] 08-13-2022 11:02-0400 Respiratory rate 16 /min DO Fco Ball Work Phone: [facility] 08-13-2022 11:02-0400 SaO2% (BldA) [Mass fraction] 100 % DO Fco Ball Work Phone: [facility] 08-13-2022 11:02-0400 Systolic blood pressure 125 mm[Hg] DO Fco Ball Work Phone: [facility] 08-13-2022 09:29-0400 Body height 167.64 cm DO Fco Ball Work Phone: [facility] 08-13-2022 09:29-0400 Body temperature 98.3 [degF] DO Fco Ball Work Phone: [facility] 08-13-2022 09:29-0400 Body weight 68.03 kg DO Fco Ball Work Phone: [facility] 03-25-2022 08:29-0500 Blood Pressure Location Silvia Lue [facility] 03-25-2022 08:29-0500 Diastolic blood pressure 87 mm[Hg] Silvia Lue [facility] 03-25-2022 08:29-0500 Heart rate 80 /min Silvia Lue [facility] 03-25-2022 08:29-0500 Systolic blood pressure 125 mm[Hg] Silvia Hodges [facility] 11-22-2021 10:55-0400 Body height 167.64 cm Brittany Itzel Other [facility] 11-22-2021 10:55-0400 Body mass index (BMI) [Ratio] 24.69 kg/m2 Brittany Itzel Other [facility] 11-22-2021 10:55-0400 Body temperature 98 [degF] Brittany Itzel Other [facility] 11-22-2021 10:55-0400 Body weight 69.4 kg Brittany Cabralesmond Other [facility] 11-22-2021 10:55-0400 Diastolic blood pressure 77 mm[Hg] Brittany Itzel Other [facility] 11-22-2021 10:55-0400 Respiratory rate 18 /min Brittany Itzel Other [facility] 11-22-2021 10:55-0400 SaO2% (BldA) [Mass fraction] 100 % Brittany Itzel Other [facility] 11-22-2021 10:55-0400 Systolic blood pressure 137 mm[Hg] Brittany Itzel Other [facility] Other Encounters Encounter Date Encounter Type Care Provider Facility Start: 04-29-2023 End: 04-29-2023 ambulatory Fco Ball Other [facility] Other Start: 04-29-2023 Telephone encounter Fco REID [facility] Start: 04-19-2023 End: 04-19-2023 ambulatory Fco Glasgow Other [facility] Other Start: 04-19-2023 Telephone encounter Fco REID [facility] Start: 09-08-2022 End: 09-08-2022 ambulatory Imad Asaad Other [facility] Other Start: 09-08-2022 Telephone encounter Imad Asaad [facility] 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 Start: 08-13-2022 Telephone encounter Fco Glaser [facility] Start: 08-13-2022 End: 08-13-2022 Admission to same day surgery center DO Fco Glasgow Work Phone: [facility] Work Phone: Start: 08-13-2022 End: 08-13-2022 ambulatory DO Fco Glasgow Work Phone: [facility] Work Phone: Start: 07-20-2022 End: 07-20-2022 ambulatory Imad Asaad Other [facility] Other Start: 07-20-2022 Telephone encounter Imad Asaad [facility] 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 Start: 07-13-2022 End: 07-13-2022 ambulatory Fco Glasgow Other [facility] Other Start: 07-13-2022 Telephone encounter Fco REID [facility] Start: 06-29-2022 End: 06-29-2022 ambulatory Fco Glasgow Other [facility] Other Start: 06-29-2022 Telephone encounter Fco REID [facility] Start: 06-23-2022 End: 06-23-2022 ambulatory Fco Glasgow Other [facility] Other Start: 06-23-2022 Telephone encounter Fco Glasgow [facility] Start: 06-11-2022 Telephone encounter Fco Glasgow [facility] Start: 06-11-2022 End: 06-11-[address] FCO GLASGOW Facility:[facility] Start: 06-10-2022 End: 06-10-2022 ambulatory Fco Glasgow Other [facility] Other Start: 06-10-2022 Telephone encounter Fco Glasgow [facility] Start: 04-27-2022 End: 04-28-[address] FCO GLASGOW Facility:[facility] Start: 04-25-2022 Encounter for genera l adult medical examination without abnormal findings DR FCO GLASGOW [facility] Start: 04-17-2022 End: 04-18-[address] FCO GLASGOW Facility:[facility] Start: 04-17-2022 End: 04-18-2022 Encounter for general adult medical examination without abnormal findings DR FCO GLASGOW Facility:[facility] Start: 03-25-2022 End: 03-26-2022 ambulatory Silvia Hodges Facility:[facility] [place] Start: 03-25-2022 End: 03-25-2022 Patient encounter procedure Silvia Hodges [facility] Start: 03-23-2022 End: 03-24-[address] FCO GLASGOW Facility:[facility] Start: 11-22-2021 Office outpatient ne w 30 minutes Brittany Robbins [facility] [place] Start: 11-22-2021 End: 11-22-2021 ambulatory Brittany Robbins [facility] Other Start: 08-28-[address] AME Castro lity:[facility]1 Procedures Date Procedure Procedure Detail Performing Clinician Start: 08-13-2022 Screening colonoscopy D O Fco Glasgow Work Phone: Start: 04-10-2020 Extracorporeal shock wave lithotripsy of calculus of kidney Silvia Hodges Colonoscopy Silvia Lue Plan of Treatment Date Care Activity Detail Author Start: 08-13-2022 [facility] Patient Education Hemorrhoids (DC) [facility] Work Phone: Immunizations Immunization Date Immunization Notes Care Provider Fadumo pereira 04-17-2022 influenza virus vaccine, split virus (incl. purified surface antigen) Foc Pee Other [facility] Other 07-18-2021 zoster vaccine recombinant Silvia Lue [facility] 05-13-2021 zoster vaccine recombinant Silvia Lue [facility] 04-22-2021 SARS-CoV-2 (COVID-19 ) mRNA-1273 vaccine Silvia Lue [facility] 08-30-2020 SARS-CoV-2 (COVID-19 ) mRNA-1273 vaccine Silvia Lue [facility] 08-02-2020 SARS-CoV-2 (COVID-19 ) mRNA-1273 vaccine Silvia Lue [facility] 05-17-2020 SARS-CoV-2 (COVID-19 ) mRNA-1273 vaccine Silvia Lue [facility] Comment on above: Result Comment: pt i s fully vaccinated but can not remember the dates 02-09-2020 influenza virus vaccine, unspecified formulation Silvia Lue [facility] 01-16-2020 influenza virus vaccine, unspecified formulation Silvia Lue [facility] 03-30-2018 tetanus toxoid, reduced diphtheria toxoid, and acellular pertussis vaccine, adsorbed Silvia Hodges [facility] Payers Date Payer Category Payer Unknown [id number] [id number] 1960 Unknown [id number] 2.16.84 [id number] 1960 Unknown [id number] 2.16.84 [id number] 1960 Unknown [id number] 2.16.84 [id number] 1960 Unknown [id number] 2.16.84 [id number] 1960 Unknown [id number] 2.16.84 [id number] 1959 Self-pay 1959 Unknown [id number] Unknown [id number] Unknown [id number] 2.16.8 [id number] Unknown [id number] 2.16.8 [id number] Social History Date Type Detail Facility Sex Assigned At [facility] Start: 04-18-2020 End: 08-13-2022 Tobacco smoking status Never smoked tobacco (finding) [facility] Start: 1960 [facility] Goals Date Patient Goal Desired Activity /State Functional Status Date Assessment Result Facility 03-25-2022 Functional Status N/A [facility] Clinical Notes 11-22-2021 to 08-13-2022 Note Date & Type Note Facility 08-13-[address] [facility] 07-15-2022 History general N arrative - Reported Type Medical History Hypertension Medical History Hypothyroidism Surgical History thyroidectomy, subtotal Surgical History Colonoscopy 07/2022 Hospitalization History see above [facility] Other 01-26-2023 Evaluation note* Encounter Date Diagnosis Assessment Notes Treatment Notes Treatment Clinical Notes May, Diarrhea of presumed infectious origin (ICD-10 - R19.7) [facility] 11-09-2022 Hospital Discharge instructions Patient Education 03/25/2022 08:50:27 Kidney Stones, Uukl-[id number] Kidney Stones Kidney stones are rock-like masses that form inside of the kidneys. Kidneys are organs that make pee (urine). A kidney stone may move into other parts of the urinary tract, including: The tubes that connect the kidneys to the bladder (ureters). The bladder. The tube that carries urine out of the body (urethra). Kidney stones can cause very bad pain and can block the flow of pee. The stone usually leaves your body (passes) through your pee. You may need to have a doctor take out the stone. What are the causes? Kidney stones may be caused by: A condition in which certain glands make too much parathyroid hormone (primary hyperparathyroidism). A buildup of a type of crystals in the bladder made of a chemical called uric acid. The body makes uric acid when you eat certain foods. Narrowing (stricture) of one or both of the ureters. A kidney blockage that you were born with. Past surgery on the kidney or the ureters, such as gastric bypass surgery. What increases the risk? You are more likely to develop this condition if: You have had a kidney stone in the past. You have a family history of kidney stones. You do not drink enough water. You eat a diet that is high in protein, salt (sodium), or sugar. You are overweight or very overweight (obese). What are the signs or symptoms? Symptoms of a kidney stone may include: Pain in the side of the belly, right below the ribs (flank pain). Pain usually spreads (radiates) to the groin. Needing to pee often or right away (urgently). Pain when going pee (urinating). Blood in your pee (hematuria). Feeling like you may vomit (nauseous). Vomiting. Fever and chills. How is this treated? Treatment depends on the size, location, and makeup of the kidney stones. The stones will often pass out of the body through peeing. You may need to: Drink more fluid to help pass the stone. In some cases, you may be given fluids through an IV tube put into one of your veins at the hospital. Take medicine for pain. Make changes in your diet to help keep kidney stones from coming back. Sometimes, medical procedures are needed to remove a kidney stone. This may involve: A procedure to break up kidney stones using a beam of light (laser) or shock waves. Surgery to remove the kidney stones. Follow these instructions at home: Medicines Take yqwf-mlw-hfqwsma and prescription medicines only as told by your doctor. Ask your doctor if the medicine prescribed to you requires you to avoid driving or using heavy machinery. Eating and drinking Drink enough fluid to keep your pee pale yellow. You may be told to drink at least 8 10 glasses of water each day. This will help you pass the stone. If told by your doctor, change your diet. This may include: ?Limiting how much salt you eat. ?Eating more fruits and vegetables. ?Limiting how much meat, poultry, fish, and eggs you eat. Follow instructions from your doctor about eating or drinking restrictions. General instructions Collect pee samples as told by your doctor. You may need to collect a pee sample: ?24 hours after a stone comes out. ?8 12 weeks after a stone comes out, and every 6 12 months after that. Strain your pee every time you pee (urinate), for as long as told. Use the strainer that your doctor recommends. Do not throw out the stone. Keep it so that it can be tested by your doctor. Keep all follow-up visits as told by your doctor. This is important. You may need follow-up tests. How is this prevented? To prevent another kidney stone: Drink enough fluid to keep your pee pale yellow. This is the best way to prevent kidney stones. Eat healthy foods. Avoid certain foods as told by your doctor. You may be told to eat less protein. Stay at a healthy weight. Where to find more information National Kidney Foundation (NKF): www.kidney.org Urology Care Foundation (UCF): www.urologyhealth.org Contact a doctor if: You have pain that gets worse or does not get better with medicine. Get help right away if: You have a fever or chills. You get very bad pain. You get new pain in your belly (abdomen). You pass out (faint). You cannot pee. Summary Kidney stones are rock-like masses that form inside of the kidneys. Kidney stones can cause very bad pain and can block the flow of pee. The stones will often pass out of the body through peeing. Drink enough fluid to keep your pee pale yellow. This information is not intended to replace advice given to you by your health care provider. Make sure you discuss any questions you have with your health care provider. Document Released: 10/19/2008 Document Revised: 09/19/2019 Document Reviewed: 09/19/2019 [employer] Patient Education 2019 [employer] Follow Up Care 02/20/2021 09:03:25 With:Carroll SCOTT, RICHELLE Lebron, U[facility] Address: When: Unknown [facility] 07-09-2022 Evaluation note* Encounter Date Diagnosis Assessment Notes Treatment Notes Treatment Clinical Notes Nov, Left hand pain (ICD-10 - M79.642) Nov, Closed nondisplaced fracture of proximal phalanx of left little finger, initial encounter (ICD-10 - S62.647A) ForFinger fracture home care material was printed Wear the splint until seen by your orthopedic doctor in follow-up. Call your orthopedic doctor on Wednesday for an appointment recheck as soon as possible. Take Tylenol or Motrin as needed for pain. Ice and elevate your hand 2-3 times a day. Go to the ER for worsening symptoms or concerns. [facility] Other Evaluation + Plan note No data available for this section [facility] evaluation noteNo InformationNort [employer] Other Evaluation noteNo assessment information available [facility] Work Phone: History and physical note Author Jessica Parada [facility] August 13, 2022 10:05am Note Date/Time August 13, 2022 10: 05am [facility] [address] [place] [address] Gastroenterology H&P Signed Patient: Jazlyn Hernandes MR#: [id number] : 1960 Acct:[id number] Age/Sex: 61 / F Adm Date: 3 Loc: Room: Type: [facility] Attending Dr: Jessica Parada MD Copies to: Fco Glasgow,DO Jessica Parada MD~ Date of Service: 08/13/2022 HISTORY & PHYSICAL: Patient's history with special attention to the cardiovascular, pulmonary systems and the current problem was reviewed with the patient immediately prior to the procedure. Present medications and doses reviewed in the EMR. Allergies and pertinent laboratory tests were also reviewedat this time in the EMR. The physical examination, as below, was then performed. Indication, assessment and HPI: 61-year-old female here for colonoscopy for evaluation of diarrhea Family history of GI malignancy? No PHYSICAL EXAMINATION Mouth and Pharynx : Moist mucus membranes, normal dentition Cardiac: Regular rate, regular rhythm Pulmonary: Clear to auscultation bilaterally, no wheezing Neurological: Alert and oriented x3, no focal deficits noted Abdomen: Abdomen soft, non-tender REVIEW OF SYSTEMS Constitutional: Denies malaise, fevers Cardiovascular: Denies chest pain, palpitations Respiratory: Denies shortness of breath, wheezing Gastrointestinal: Per HPI Genitourinary: Denies dysuria, polyuria Musculoskeletal: Denies joint swelling, joint stiffness Neurological: Denies numbness, tingling Integumentary: Denies rashes, skin lesions Endocrine: Denies fatigue, weight loss Written informed consent obtained from the patient. Risks (including but not limited to perforation, infection, bloating, bleeding, need for emergent surgeryand loss of life), benefits and alternatives explained and questions answered. The patient verbalized understanding. Based on history patient is an appropriate candidate for the procedure. Jessica Parada M.D. Documented By: Jessica Parada MD 08/13/22 1004 Signed By: <Electronically signed by Jessica Parada MD> 08/13/22 1005 [facility] Work Phone: History general Narrative - Reported* Type Description Date Medical History Hypertension Medical History Hypothyroidism Surgical History thyroidectomy, subtotal Hospitalization History see above [facility] Other Hospital Discharge instructions Additional Instructions DISCHARGE INSTRUCTIONS FOR COLONOSCOPY WHAT TO EXPECT: - You may feel full, gassy or cramping after your procedure. In some cases, this may be from a few hours to a day. Walking may help relieve the discomfort. - You should begin to recover from anesthesia within 1 hour of the procedure, however may feel groggy for the next 24 hours. DO's AND DON'Ts: - Call your doctor right away if you have a hard abdomen, severe pain, are passing lots of bright red blood or clots. - Call your doctor if you develop any rashes, hives or difficulty breathing. - Let your doctor know if you have not had a bowel movement by 3 days after your procedure. - If you take 81 mg aspirin for your heart it is safe to resume this medication. - If you take other blood thinner medications your doctor will instruct you when these can safely be resumed. - Do NOT drive for 24 hours. - Do NOT operate machinery such as power tools, [employer] mowers, snow blowers, sewing machines, etc. for 24 hours. - Avoid alcoholic beverages and drugs for allergies, nerves, or sleep. - Do NOT stay alone. Do NOT leave your child unattended. - Do NOT make important personal or business decisions or sign any legal documents. - Eat solid foods and drink liquids in smaller amounts than usual until normal appetite returns. If you should experience an upset stomach, liquids high in sugar content (soda, Mateo-Aid, non-acid juices) are recommended. - You can resume normal activities tomorrow. FOLLOW UP & RECOMMENDATIONS: -Notify the doctor if you have any problems. -Repeat colonoscopy in 10 years -Follow up with PCP. -Office number [phone]. [facility] Work Phone: Progress note No data available for this section [facility] reason for referral (narrative)* Reason 08/13/22 @ [facility] Mary romero for screening colonoscopy Diagnosis 1 Screening for colon cancer (Z12.11) Referral Organization [facility] Pee darby Referring Provider First Name Fco Referring Provider Last Name Pee Referring Provider Specialty Internal Me dicine Referred Organization [facility] Gastroenterolo gy Referred Provider Bubba Rebollar Referred Address [address] [facility] [facility] [address] ,[place], [place],[address] Referred Provider Specialty Gastroentero logy Referral Priority Routine Referral Appointment Date 2022-08-13 General Notes Patient is being ref erred for a screening colonoscopy. She is an asymptomatic, low risk patient. Batsheva Marcum 06/30/2022 11:15:14 AM >received today, sent P2P Neris Healy 07/20/2022 03:13:35 PM >COLON WITH ASAAD ON 08/13/22 Clinical Notes This patient has int ermittent loose BM but denies abdominal pain, unexplained weight loss, nausea, indigestion, heartburn, dysphagia, melena or hematochezia. [facility] Other Summary Purpose Family History Relationship Condition Age at Onset Recorded Date/T celestine Not Specified Hypertension Unknown Hyperlipidemia Unknown father Hypertension Unknown family member Malignant neoplasm of lung Unknown Advance Directives Advance Directive Response Recorded Date/ Time Advance Directives No November 25 10:56am Chief Complaint and Reason for Visit Chief Complaint Screening Additional Source Comments INFORMATION SOURCE (unrecogn ized section and content) DATE CREATED AUTHOR 08/29/2021 [facility] dical Specialist DATE CREATED AUTHOR AUTHOR'S ORGANIZ ATION 03/25/2022 [facility] DATE CREATED AUTHOR AUTHOR'S ORGANIZ ATION 06/16/2022 [facility] DATE CREATED AUTHOR AUTHOR'S ORGANIZ ATION 08/21/2022 [facility] REASON FOR VISIT (unrecogniz ed section and content) LEFT HAND INJURY FROM FALLdi arrhea/unformed stoolNo InformationTest ResultsReferralEGDREFERRAL QUESTIONMAIL PPWNo InformationGASTRO REPORTS READYLab resultsmamm results Patient Care team informatio n (unrecognized section and content) Team Status: Active Member Role Status Dates Fco Glasgow DO Primary Care Provider Active Team Status: Inactive Member Role Status Dates Jessica Parada MD Attending Provider Active Fco Glasgow DO Primary Care Provider Active FOR RECORDS PERTAINING TO PATIENTS WHO ARE OR HAVE BEEN ENROLLED IN A CHEMICAL DEPENDENCY/SUBSTANCEABUSE PROGRAM, SOME INFORMATION MAY BE OMITTED. This clinical summary was aggregated from multiple sources. Caution should be exercised in using it in the provision of clinical care. This summary normalizes information from multiple sources, and as a consequence, information in this document may materially change the coding, format and clinical context of patient data. In addition, data may be omitted in some cases. CLINICAL DECISIONS SHOULD BE BASED ON THE PRIMARY CLINICAL RECORDS. [facility] provides no warranty or guarantee of the accuracy or completeness of information in this document.
== END 2024-05-01 10:49 | disposition home or self-care (01) ==
LOC: MAMMO 10:48
PROVIDERS: PCP Internal Medicine; Visit Provider Internal Medicine
DX: Z12.31 Encounter for screening mammogram for malignant neoplasm of breast (principal); Z80.3 Family history of malignant neoplasm of breast; Z80.1 Family history of malignant neoplasm of trachea, bronchus and lung
CPT/HCPCS: 77063; 77067

== ENCOUNTER 2024-08-03 11:29 | Outpatient (OUT) | payer OTHER, SELFPAY ==
--- OUTSIDE RECORDS SUMMARY | 2024-08-03 11:36 | XMS_ITS | CCD ---
Author Organization [facility] Care Team Providers Care Manager Sales And Marketing Name Role Phone Brittany Robbins Unavailable Silvia Hodges Attending Unavailable FCO GLASGOW Primary Care Physician [phone] PEE, DR BARTH Primary Care Unavailable SALVADOR GUERRERO, DR THUY Thayer Attending Unavailangela PEGUERO JR, DR THUY Thayer Admitting Unavailangela POWELL, DR JESSICA Gardner Consulting Unavailable SALVADOR GUERRERO, DR THUY Thayer Consulting Unavailangela SUTTON, DR MCCLOUD Primary Care Unavailable PEE, DR BARTH Admitting [...] Imad Unavailable MD Jessica Parada Attending Provider [phone] DO Fco Glasgow Primary Care Provider [phone] Asaad, Imchristina Admitting Unavailable Tal, Imchristina Attending Unavailable Fco Glasgow Primary Care Unavailable Brittany Robbins Admitting Unavailable Brittany Robbins Attending Unavailable Allergies Allergy Classification Reported Allergen(s) Allergy Type Date of Onset Reaction(s) Facility (2 sources) hydroCHLOROthiazide / Lisinopril Drug Allergy Unknown Online Dealer Other Medications Current Medications Medication Drug Class(es) [...] Sig (Normalized) Sig (Original) polyethylene glycol 3350 620249 mg / potassium chloride 2970 mg / sodium bicarbonate 6740 mg / sodium chloride 5860 mg / sodium sulfate 44136 mg powder for oral solution (8 sources) [...] Reference Range Facility [place] 08-13-2022 L Specimen: [id number] Received: 08/13/22 Status: JOSEFINA Hernandezrandi Num: [id number] Spec Type: Surgical Subm Dr: Jessica Parada MD Tissues: A Colon Biopsy (RANDOM COLON BX) Procedures: HE/2, Gross/Micro L4 Age/ Patient Sex Location Account Attending Physician Jazlyn Hernandes 61/F [id number] Jessica Parada MD SPEC NUM: [id number] RECD: 08/13/22 STATUS: JOSEFINA RERandi NUM: [id number] MAIKEL: 08/13/22 DR: Jessica Parada MD ENTERED: 08/13/22 [facility] DR: SPEC TYPE: Surgical DEPT: S ORDERED: [...] findings support the above pathologic diagnosis. Specimen: [id number] Received: 08/13/22 Status: JOSEFINA Taveras Num: [id number] Spec Type: Surgical Subm Dr: Jessica Parada MD Tissues: A Colon Biopsy (RANDOM COLON BX) Procedures: HE/2, Gross/Micro L4 Patient: Jazlyn Hernandes [id number] (Continued) Specimen: [id number] Received: 08/13/22 (Continued) Signed (signature on file) Jojo De La Torre MD 08/14/22 1219 Specimen: [id number] Received: 08/13/22 Status: JOSEFINA Taveras Num: [id number] Spec Type: Surgical Subm Dr: Jessica Parada MD Tissues: A Colon Biopsy (RANDOM COLON BX) Procedures: HE/2, Lindy/Roberto L4 Patient: Jazlyn Hernandes [id number] (Continued) Specimen: Received: 08/13/22 (Continued) CPT Codes 10560 Specimen: Received: 08/13/22 Status: JOSEFINA Taveras Num: [id number] Spec Type: Surgical Subm Dr: Jessica Parada MD Tissues: A Colon Biopsy (RANDOM COLON BX) Procedures: HE/2, Gross/Micro L4 Patient: Jazlyn Hernandes [id number] (Continued) Signed (signature on file) Jojo De La Torre MD 08/14/22 1219 [facility] STOOL CULTUREon 06-15-2022 Campylobacter Culture Final report Normal [facility] Comment on above: Performed By: #### C XSTOOL #### [facility] [address] [place] [address] Dr. Philly Cedillo E coli Shiga Toxin EIA Negative Normal Negative [facility] Comment on above: Performed By: #### C XSTOOL #### [facility] [address] [address] [address] Philly Cedillo Result 1 Comment Normal [facility] Comment on above: Result Comment: No S almonella or Shigella recovered. Performed By: #### C XSTOOL #### [facility] [address] [address] [address] Philly Cedillo Result Comment: No C ampylobacter species isolated. Salmonella/Shigell a Screen Final report Normal [facility] Comment on above: Performed By: #### C XSTOOL #### [facility] [address] [address] [address] Philly Cedillo C. DIFF PCRon 06-11-2022 C. DIFFICILE PCR Negative Normal NEGATIVE [facility] Comment on above: Performed By: #### C DIFPOC #### [facility] [address] [address] [address] Philly Cedillo MG MAMM SCREEN 3D RADHA CADon 04-27-2022 MG MAMM SCREEN 3D RADHA CAD Patient: JAZLYN HERNANDES Exam Date: 04/27/2022 : 1960 Gender:F Ordering : DR FCO GLASGOW D.O. Admission #: [id number] Family : Order #: [id number] CLICK HERE TO VIEW EXAM RADIOLOGY REPORT PROCEDURE: MAMMOGRAM SCREENING 3D BILATERAL CAD COMPARISON: MG MAMM SCREEN 3D ARDHA CAD, 04/05/2020. MG MAMM SCREEN 3D RADHA CAD, 04/25/2021. INDICATIONS: Screening mammography Calculator Name NCI Breast Cancer Risk Assessment Tool 5 Year Breast Cancer Risk 1.60% Lifetime Breast Cancer Risk 7.50% Personal Breast Cancer No Personal Ovarian Cancer No Treatments None Family Cancers Aunt-maternal with breast cancer at age 78; Uncle-maternal with lung cancer at age 65. LOCATION: [facility] BREAST COMPOSITION: Heterogeneously dense,which may obscure [...] MD on 04/27/2022 at 08:45 Normal [facility] CBC AUTO DIFFon 04-17-2022 BASO # 0.0 103/ul Normal 0.0-0.1 [facility] Comment on above: Performed By: #### C BC #### [facility] [address] [address] [address] Philly Cedillo Basophils/100 WBC (Bld) 0.7 % Normal 0.2-2.0 [facility] Comment on above: Performed By: #### C BC #### [facility] [address] [address] [address] Philly Cedillo EO # 0.1 103/ul Normal 0.0-0.7 [facility] Comment on above: Performed By: #### C BC #### [facility] [address] [address] [address] Philly Cedillo Eosinophils/100 WBC (Bld) 3.1 % Normal 0.9-7.0 [facility] Comment on above: Performed By: #### C BC #### [facility] [address] [place] [address] Dr. Philly Cedillo Erythrocyte distribution width (RBC) [Ratio] 11.9 % Normal 11.0-15.0 [facility] Comment on above: Performed By: #### C BC #### [facility] [address] [place] [address] Dr. Philly Cedillo Hematocrit (Bld) [Volume fraction] 37.9 % Normal 36.0-48.0 [facility] Comment on above: Performed By: #### C BC #### [facility] [address] [place] [address] Dr. Philly Cedillo Hemoglobin (Bld) [Mass/Vol] 12.8 g/dL Normal 12.0-16.0 [facility] Comment on above: Performed By: #### C BC #### [facility] [address] [place] [address] Dr. Philly Cedillo IG # 0.01 10e3/ul Normal 0.00-0.03 [facility] Comment on above: Performed By: #### C BC #### [facility] [address] [place] [address] Dr. Philly Cedillo IG % 0.2 % Normal 0.0-0.5 [facility] Comment on above: Performed By: #### C BC #### [facility] [address] [place] [address] Dr. Philly Cedillo LYMPH # 1.6 103/ul Normal 1.2-3.8 [facility] Comment on above: Performed By: #### C BC #### [facility] [address] [place] [address] Dr. Philly Cedillo Lymphocytes/100 WBC (Bld) 37.5 % Normal 20.5-60.0 [facility] Comment on above: Performed By: #### C BC #### [facility] [address] [place] [address] Dr. Philly Cedillo MANUAL DIFF REQ NO Normal [facility] Comment on above: Performed By: #### C BC #### [facility] [address] [place] [address] Dr. Philly Cedillo MCH (RBC) [Entitic mass] 30.5 pg Normal 26.7-34.0 [facility] Comment on above: Performed By: #### C BC #### [facility] [address] [place] [address] Dr. Philly Cedillo MCHC (RBC) [Mass/Vol] 33.8 g/dL Normal 29.9-35.2 [facility] Comment on above: Performed By: #### C BC #### [facility] [address] [place] [address] Dr. Philly Cedillo MCV (RBC) [Entitic vol] 90.5 fL Normal 81.0-99.0 [facility] Comment on above: Performed By: #### C BC #### [facility] [address] [place] [address] Dr. Philly Cedillo MONO # 0.3 103/ul Normal 0.3-0.8 [facility] Comment on above: Performed By: #### C BC #### [facility] [address] [place] [address] Dr. Philly Cedillo Monocytes/100 WBC (Bld) 7.3 % Normal 1.7-12.0 [facility] Comment on above: Performed By: #### C BC #### [facility] [address] [place] [address] Dr. Philly Cedillo NEUT # 2.2 103/ul Normal 1.4-6.5 [facility] Comment on above: Performed By: #### C BC #### [facility] [address] [place] [address] Dr. Philly Cedillo Neutrophils/100 WBC (Bld) 51.2 % Normal 43.0-75.0 [facility] Comment on above: Performed By: #### C BC #### [facility] [address] [place] [address] Dr. Philly Cedillo Platelet mean volume (Bld) [Entitic vol] 9.2 fL Critically low 9.5-13.5 [facility] Comment on above: Performed By: #### C BC #### [facility] [address] [address] [address] Philly Cedillo PLT 222 103/ul Normal 150-450 [facility] Comment on above: Performed By: #### C BC #### [facility] [address] [address] [address] Philly Cedillo RBC 4.19 106/ul Critically low 4.20-5.40 [facility] Comment on above: Performed By: #### C BC #### [facility] [address] [address] [address] Philly Cedillo WBC 4.2 103/ul Normal 4.0-11.0 [facility] Comment on above: Performed By: #### C BC #### [facility] [address] [address] [address] Philly Cedillo LIPID PROFILEon 04-17-2022 CHOL-HDL RATIO NORM SEE BELOW Normal [facility] Comment on above: Result Comment: 3.3 - 4.4 LOW RISK 4.4 - 7.1 AVERAGE RISK 7.1 - 11.0 MODERATE RISK >11.0 HIGH RISK Performed By: #### T SH, CMP, LIPID #### [facility] [address] [address] [address] Philly Cedillo Cholesterol [Mass/Vol] 217 mg/dL Critically high <=200 [facility] Comment on above: Performed By: #### T SH, CMP, LIPID #### [facility] [address] [address] [address] Philly Cedillo Cholesterol in HDL [Mass/Vol] 72 mg/dL Critically high 40-60 [facility] Comment on above: Performed By: #### T SH, CMP, LIPID #### [facility] [address] [address] [address] Philly Cedillo Cholesterol in LDL [Mass/Vol] 126.8 mg/dL Normal [facility] Comment on above: Performed By: #### T SH, CMP, LIPID #### [facility] [address] [address] [address] Philly Cedillo Cholesterol.total/ Cholesterol in HDL [Mass ratio] 3.0 {ratio} Normal [facility] Comment on above: Performed By: #### T SH, CMP, LIPID #### [facility] [address] [address] [address] Philly Cedillo HDL NORMAL > or = 60 mg/dl - LOW CARDIOVASCULAR RISK <40 mg/dl - HIGH CARDIOVASCULAR RISK Normal [facility] Comment on above: Performed By: #### T SH, CMP, LIPID #### [facility] [address] [address] [address] Philly Cedillo LDL CALC NORMAL SEE BELOW Normal [facility] Comment on above: Result Comment: <100 mg/dl OPTIMAL 100 - 129 mg/dl NEAR OR ABOVE OPTIMAL 130 - 159 mg/dl BORDERLINE HIGH 160 - 189 mg/dl HIGH >190 mg/dl VERY HIGH Performed By: #### T SH, CMP, LIPID #### [facility] [address] [place] [address] Dr. Philly Cedillo Triglyceride [Mass/Vol] 91 mg/dL Normal <=150 [facility] Comment on above: Performed By: #### T SH, CMP, LIPID #### [facility] [address] [address] [address] Philly Cedillo VLDL CALC 18.2 mg/dL Normal [facility] Comment on above: Performed By: #### T SH, CMP, LIPID #### [facility] [address] [place] [address] Dr. Philly Cedillo PROF 14(COMP METB)on 022 Albumin [Mass/Vol] 4.3 g/dL Normal 3.4-5.0 [facility] Comment on above: Performed By: #### T SH, CMP, LIPID #### [facility] [address] [place] [address] Dr. Philly Cedillo Albumin/Globulin [Mass ratio] 1.3 {ratio} Normal [facility] Comment on above: Performed By: #### T SH, CMP, LIPID #### [facility] [address] [address] [address] Philly Cedillo ALP [Catalytic activity/Vol] 67 U/L Normal 46-116 [facility] Comment on above: Performed By: #### T SH, CMP, LIPID #### [facility] [address] [address] [address] Philly Cedillo ALT [Catalytic activity/Vol] 21 U/L Normal 14-59 [facility] Comment on above: Performed By: #### T SH, CMP, LIPID #### [facility] [address] [address] [address] Philly Cedillo Anion gap [Moles/Vol] 10.9 mmol/L Normal [facility] Comment on above: Performed By: #### T SH, CMP, LIPID #### [facility] [address] [address] [address] Philly Cedillo AST [Catalytic activity/Vol] 16 U/L Normal 15-37 [facility] Comment on above: Performed By: #### T SH, CMP, LIPID #### [facility] [address] [place] [address] Dr. Philly Cedillo Bilirubin [Mass/Vol] 2.1 mg/dL Critically high 0.2-1.0 [facility] Comment on above: Performed By: #### T SH, CMP, LIPID #### [facility] [address] [address] [address] Philly Cedillo Calcium [Mass/Vol] 9.6 mg/dL Normal 8.5-10.1 [facility] Comment on above: Performed By: #### T SH, CMP, LIPID #### [facility] [address] [address] [address] Philly Cedillo Chloride [Moles/Vol] 102 mmol/L Normal 98-107 [facility] Comment on above: Performed By: #### T SH, CMP, LIPID #### [facility] [address] [address] [address] Philly Cedillo CO2 [Moles/Vol] 32.2 mmol/L Critically high 21.0-32.0 [facility] Comment on above: Performed By: #### T SH, CMP, LIPID #### [facility] [address] [address] [address] Philly Cedillo Creatinine [Mass/Vol] 0.66 mg/dL Normal 0.55-1.02 [facility] Comment on above: Performed By: #### T SH, CMP, LIPID #### [facility] [address] [address] [address] Philly Cedillo EGFR-AF HONDURAN >60 Normal >=[address] [facility] Comment on above: Performed By: #### T SH, CMP, LIPID #### [facility] [address] [address] [address] Philly Cedillo EGFR-NON AF HONDURAN >60 Normal >=60 [facility] Comment on above: Performed By: #### T SH, CMP, LIPID #### [facility] [address] [address] [address] Philly Cedillo Globulin (S) [Mass/Vol] 3.2 g/dL Normal [facility] Comment on above: Performed By: #### T SH, CMP, LIPID #### [facility] [address] [address] [address] Philly Cedillo Glucose [Mass/Vol] 95 mg/dL Normal 74-106 [facility] Comment on above: Performed By: #### T SH, CMP, LIPID #### [facility] [address] [address] [address] Philly Cedillo Potassium [Moles/Vol] 4.1 mmol/L Normal 3.5-5.1 [facility] Comment on above: Performed By: #### T SH, CMP, LIPID #### [facility] [address] [address] [address] Philly Cedillo Protein [Mass/Vol] 7.5 g/dL Normal 6.4-8.2 [facility] Comment on above: Performed By: #### T SH, CMP, LIPID #### [facility] [address] [address] [address] Philly Cedillo Sodium [Moles/Vol] 141 mmol/L Normal 136-145 [facility] Comment on above: Performed By: #### T SH, CMP, LIPID #### [facility] [address] [address] [address] Philly Cedillo Urea nitrogen [Mass/Vol] 18.0 mg/dL Normal 7.0-18.0 [facility] Comment on above: Performed By: #### T SH, CMP, LIPID #### [facility] [address] [address] [address] Philly Cedillo Urea nitrogen/Creatinin e [Mass ratio] 27.3 mg/mg Normal [facility] Comment on above: Performed By: #### T SH, CMP, LIPID #### [facility] [id number] Philly Cedillo TSHon 04-17-2022 TSH 0.587 uIU/mL Normal 0.358-3.740 [facility] Comment on above: Performed By: #### T SH, CMP, LIPID #### [facility] [id number] Philly Cedillo Patient Educationon 03-25-20 Patient [...] these instructions at home: Medicines ? Take elop-gpi-umrqeam and prescription medicines only as told by [...] 10/19/2008 Document Revised: 09/19/2019 Document Reviewed: 09/19/2019 [employer] Patient Education ? 2019 [employer] [facility] 03-25-2022 [facility] [phone] [id number] #[id number]:127 Normal [facility] Urology Office/Clinic Noteon 03-25-2022 Urology Office/Clinic [...] 1 yr w/KUB Patient Education Kidney Stones, Vree-gc-Ajkc I, Trinity Cagle, personally scribed for Dr. [...] 08/30/2020 R (more content not included)... Normal [facility] Comment on above: Result Comment: Elec [...] by: JESSICA POWELL Date: 2022-03-23 17:33 Normal [facility] XR hand LT min 3V*on 022 XR hand LT min 3V* [facility] Online Dealer Other XR hand LT min 3V* [facility] Main [facility] Other XR hand LT min 3V* [facility] Online Dealer Other XR hand LT min 3V* [place] [address] Online Dealer Other XR hand LT min 3V* XRay Report Online Dealer Other XR hand LT min 3V* Signed Online Dealer Other XR hand LT min 3V* Patient: Jazlyn Hernandes MR#: [id number] Online Dealer Other XR hand LT min 3V* : 1960 Acct:[id number] Online Dealer Other XR hand LT min 3V* Age/Sex: 61 / F ADM Date: 11/22/21 Online Dealer Other XR hand LT min 3V* Loc: XDUCLY Room: Type: REG CLI Online Dealer Other XR hand LT min 3V* Attending Dr: Brittany HAYES Online Deal[employer] Other XR hand LT min 3V* Copies to: ABIGAIL Mckeon Online Deal[employer] Other XR hand LT min 3V* Ordering Provider: ABIGAIL Mckeon Online Dealer Other XR hand LT min 3V* Date of Service: 11/22/21 Online Dealer Other XR hand LT min 3V* XR/XR hand LT min 3V*: Left hand pain Online Dealer Other XR hand LT min 3V* 3 viewsLEFT hand plain film Online Dealer Other XR hand LT min 3V* COMPARISON:None N [facility] CONWEAVER Other XR hand LT min 3V* HISTORY:LEFT hand injury Online Deal[employer] Other XR hand LT min 3V* Fracture involving the base of the 5th proximal phalanx identified. No dislocation. Online Dealer Other XR hand LT min 3V* XR/XR hand LT min 3V* Online Dealer Other XR hand LT min 3V* IMPRESSION:LEFT 5th proximal phalanx fracture Online Dealer Other XR hand LT min 3V* Impression dictated by: Mark Mathur M.D.11/22/2021 12:00 PM [place] CONWEAVER Other XR hand LT min 3V* Dictation Location: [facility] Other XR hand LT min 3V* Transcribed By: [facility] 11/22/21 1200 [facility] Other XR hand LT min 3V* Dictated By: Mark Mathur DO 11/22/21 1154 [facility] Other XR hand LT min 3V* Signed By: Online Dealer Other XR hand LT min 3V* 11/22/21 1200 [facility] CONWEAVER Other XR hand LT min 3V* [facility] Main [place] [address] [place] [address] XRay Report Signed Patient: Jazlyn Hernandes MR#: [id number] : 1960 Acct:[id number] Age/Sex: 61 / F ADM Date: 11/22/21 Loc: XDUCLY Room: Type: [facility] Attending Dr: Brittany HAYES Copies to: ABIGAIL [...] Mark Mathur M.D.11/22/2021 12:00 PM Dictation Location: [place] [address] Transcribed By: [facility] 11/22/21 1200 Dictated By: Mark Mathur DO 11/22/21 1154 Signed By: 11/22/21 1200 Normal [facility] Albuminon 08-28-2021 Albumin [Mass/Vol] 5.0 g/dL Normal 3.6-5.1 Paul rn [place] [employer] [facility]ist Comment on above: Performed By: #### P HOS, BMP, ALB #### [facility] [address] [place], [place] [id number] Basic Metabolic Panelon 08-15 Anion gap [Moles/Vol] 16 mmol/L Normal 12-20 [facility] Calibration Specialist Comment on above: Result Comment: Effe ctive 05/22/2019 reference range changed. Performed By: #### P HOS, BMP, ALB #### [facility] [address] [place], [place] [id number] Calcium [Mass/Vol] 9.8 mg/dL Normal 8.6-10.2 [place] [employer] Specialist Comment on above: Performed By: #### P HOS, BMP, ALB #### [facility] [address] [place], [place] [id number] Chloride [Moles/Vol] 104 mmol/L Normal 98-107 [facility] Calibration Specialist Comment on above: Performed By: #### P HOS, BMP, ALB #### [facility] [address] [place], [place] [id number] CO2 [Moles/Vol] 24 mmol/L Normal 20-31 [facility] Specialist Comment on above: Performed By: #### P HOS, BMP, ALB #### [facility] [address] [place], [place] [id number] Creatinine [Mass/Vol] 0.7 mg/dL Normal 0.6-1.4 [facility] Calibration Specialist Comment on above: Performed By: #### P HOS, BMP, ALB #### [facility] [address] [place], [place] [id number] eGFRAA 113 mL/min/1.73m2 Normal >60 [facility] Specialist Comment on above: Performed By: #### P HOS, BMP, ALB #### [facility] [address] [place], [place] [id number] eGFRNAA 93 mL/min/1.73m2 Normal >60 [facility] Calibration Specialist Comment on above: Performed By: #### P HOS, BMP, ALB #### [facility] [address] [place], [place] [id number] Glucose [Mass/Vol] 101 mg/dL High 65-99 Paul dyer [place] [employer] Specialist Comment on above: Result Comment: For FASTING Glucose --- ADA reference ranges: Normal 65-99 mg/dl Prediabetes 100-125 Diabetes >/= 126 Performed By: #### P HOS, BMP, ALB #### [facility] [address] [place], [place] [id number] Potassium [Moles/Vol] 4.3 mmol/L Normal 3.5-5.5 [facility] Specialist Comment on above: Performed By: #### P HOS, BMP, ALB #### [facility] [address] [place], [place] [id number] Sodium [Moles/Vol] 140 mmol/L Normal 135-146 Paul [facility] Calibration Specialist Comment on above: Performed By: #### P HOS, BMP, ALB #### [facility] [address] [place], [place] [id number] Urea nitrogen [Mass/Vol] 15 mg/dL Normal 7-25 [facility] Specialist Comment on above: Performed By: #### P HOS, BMP, ALB #### [facility] [address] [place], [place] [id number] Parathyroid Hormone, Intacto n 08-28-2021 PTH 64.58 pg/mL Normal 16.00-65.00 [facility] Comment on above: Performed By: #### P TH* #### [facility] [address] [place], [place] [id number] Phosphoruson 08-28-2021 Phosphate [Mass/Vol] 3.3 mg/dL Normal 2.2-4.4 [facility] Specialist Comment on above: Performed By: #### P HOS, BMP, ALB #### [facility] [address] [place], [place] [id number] Calciumon 07-15-2021 Calcium [Mass/Vol] 10.4 mg/dL High 8.6-10.2 [place] [facility] Calibration Specialist Comment on above: Performed By: #### C A #### [facility] [address] [place], [place] [id number] Complete Blood Count with Au to Diffon 04-22-2021 Basophils (Bld) [#/Vol] 0.03 10*3/uL Normal 0.00-0.20 [facility] Calibration Specialist Comment on above: Performed By: #### T SH, CMP, VITD, LIPD, CBCAD #### [facility] [address] [place], [place] [id number] Basophils/100 WBC (Bld) 0.7 % Normal [facility] Specialist Comment on above: Performed By: #### T SH, CMP, VITD, LIPD, CBCAD #### [facility] [address] [place], [place] [id number] Eosinophils (Bld) [#/Vol] 0.13 10*3/uL Normal 0.02-0.50 [facility] [facility] Comment on above: Performed By: #### T SH, CMP, VITD, LIPD, CBCAD #### [facility] [address] [place], [place] [id number] Eosinophils/100 WBC (Bld) 3.1 % Normal [facility] Calibration Specialist Comment on above: Performed By: #### T SH, CMP, VITD, LIPD, CBCAD #### [facility] [address] [place], [place] [id number] Erythrocyte distribution width (RBC) [Ratio] 12.0 % Normal 11.0-15.0 [facility] Calibration Specialist Comment on above: Performed By: #### T SH, CMP, VITD, LIPD, CBCAD #### [facility] [address] [place], [place] [id number] Hematocrit (Bld) [Volume fraction] 41.4 % Normal 35.0-47.0 [facility] Calibration Specialist Comment on above: Performed By: #### T SH, CMP, VITD, LIPD, CBCAD #### [facility] [address] [place], [place] [id number] Hemoglobin (Bld) [Mass/Vol] 13.5 g/dL Normal 11.6-15.5 [facility] Calibration Specialist Comment on above: Performed By: #### T SH, CMP, VITD, LIPD, CBCAD #### [facility] [address] [place], [place] [id number] Lymphocytes (Bld) [#/Vol] 1.3 10*3/uL Normal 0.9-3.9 [place] [facility] Specialist Comment on above: Performed By: #### T SH, CMP, VITD, LIPD, CBCAD #### [facility] [address] [place], [place] [id number] Lymphocytes/100 WBC (Bld) 30.5 % Normal [facility] Specialist Comment on above: Performed By: #### T SH, CMP, VITD, LIPD, CBCAD #### [facility] [address] [place], [place] [id number] MCH (RBC) [Entitic mass] 30.9 pg Normal 27.0-33.0 [facility] Specialist Comment on above: Performed By: #### T SH, CMP, VITD, LIPD, CBCAD #### [facility] [address] [place], [place] [id number] MCHC (RBC) [Mass/Vol] 32.6 g/dL Normal 32.0-36.0 [facility] Specialist Comment on above: Performed By: #### T SH, CMP, VITD, LIPD, CBCAD #### [facility] [address] [place], [place] [id number] MCV (RBC) [Entitic vol] 95 fL Normal 80-100 [facility] Specialist Comment on above: Performed By: #### T SH, CMP, VITD, LIPD, CBCAD #### [facility] [address] [place], [place] [id number] Monocytes (Bld) [#/Vol] 0.3 10*3/uL Normal 0.2-0.9 [facility] Specialist Comment on above: Performed By: #### T SH, CMP, VITD, LIPD, CBCAD #### [facility] [address] [place], [place] [id number] Monocytes/100 WBC (Bld) 7.5 % Normal [facility] Specialist Comment on above: Performed By: #### T SH, CMP, VITD, LIPD, CBCAD #### [facility] [address] [place], [place] [id number] Neutrophils (Bld) [#/Vol] 2.4 10*3/uL Normal 1.5-7.8 [facility] Specialist Comment on above: Performed By: #### T SH, CMP, VITD, LIPD, CBCAD #### [facility] [address] [place], [place] [id number] Neutrophils/100 WBC (Bld) 58.0 % Normal [facility] Specialist Comment on above: Performed By: #### T SH, CMP, VITD, LIPD, CBCAD #### [facility] [address] [place], [place] [id number] Platelet mean volume (Bld) [Entitic vol] 9.90 fL Normal 7.50-12.50 [facility] Specialist Comment on above: Performed By: #### T SH, CMP, VITD, LIPD, CBCAD #### [facility] [address] [place], [place] [id number] Platelets (Bld) [#/Vol] 255 10*3/uL Normal 140-400 [facility] Calibration Specialist Comment on above: Performed By: #### T SH, CMP, VITD, LIPD, CBCAD #### [facility] [address] [place], [place] [id number] RBC (Bld) [#/Vol] 4.37 10*6/uL Normal 3.90-5.20 [facility] Calibration Specialist Comment on above: Performed By: #### T SH, CMP, VITD, LIPD, CBCAD #### [facility] [address] [place], [place] [id number] RDW-SD 41.7 fL Normal 37.0-50.0 [facility] Calibration Specialist Comment on above: Performed By: #### T SH, CMP, VITD, LIPD, CBCAD #### [facility] [address] [place], [place] [id number] WBC (Bld) [#/Vol] 4.1 10*3/uL Normal 3.8-11.0 [facility] Calibration Specialist Comment on above: Performed By: #### T SH, CMP, VITD, LIPD, CBCAD #### [facility] [address] [place], [place] [id number] Comprehensive Metabolic Pane [facility] 04-22-2021 Albumin [Mass/Vol] 5.0 g/dL Normal 3.6-5.1 [place] Calibration Specialist Comment on above: Performed By: #### T SH, CMP, VITD, LIPD, CBCAD #### [facility] [address] [place], [place] [id number] Albumin/Globulin [Mass ratio] 2.5 {ratio} Normal 1.0-2.5 [facility] Specialist Comment on above: Performed By: #### T SH, CMP, VITD, LIPD, CBCAD #### [facility] [address] [place], [place] [id number] ALP [Catalytic activity/Vol] 85 U/L Normal 35-119 [facility] Specialist Comment on above: Performed By: #### T SH, CMP, VITD, LIPD, CBCAD #### [facility] [address] [place], [place] [id number] ALT [Catalytic activity/Vol] 14 U/L Normal 6-33 [facility] Specialist Comment on above: Result Comment: 04/16 Female reference range changed. Performed By: #### T SH, CMP, VITD, LIPD, CBCAD #### [facility] [address] [place], [place] [id number] Anion gap [Moles/Vol] 18 mmol/L Normal 12-20 [facility] Specialist Comment on above: Result Comment: Effe ctive 05/22/2019 reference range changed. Performed By: #### T SH, CMP, VITD, LIPD, CBCAD #### [facility] [address] [place], [place] [id number] AST [Catalytic activity/Vol] 14 U/L Normal 9-34 [facility] Specialist Comment on above: Performed By: #### T SH, CMP, VITD, LIPD, CBCAD #### [facility] [address] [place], [place] [id number] Bilirubin [Mass/Vol] 1.11 mg/dL Normal 0.30-1.20 [facility] Calibration Specialist Comment on above: Performed By: #### T SH, CMP, VITD, LIPD, CBCAD #### [facility] [address] [facility] [place] [id number] BUN/CREA 33 Ratio High 6-22 [facility] Specialist Comment on above: Performed By: #### T SH, CMP, VITD, LIPD, CBCAD #### [facility] [address] [place], [place] [id number] Calcium [Mass/Vol] 10.5 mg/dL High 8.6-10.2 [facility] Performed By: #### T SH, CMP, VITD, LIPD, CBCAD #### [facility] [address] [facility] [place] [id number] Chloride [Moles/Vol] 103 mmol/L Normal 98-107 [facility] Specialist Comment on above: Performed By: #### T SH, CMP, VITD, LIPD, CBCAD #### [facility] [address] [facility] [place] [id number] CO2 [Moles/Vol] 27 mmol/L Normal 20-31 [facility] Specialist Comment on above: Performed By: #### T SH, CMP, VITD, LIPD, CBCAD #### [facility] [address] [facility] [id number] Creatinine [Mass/Vol] 0.6 mg/dL Normal 0.6-1.4 [facility] Specialist Comment on above: Performed By: #### T SH, CMP, VITD, LIPD, CBCAD #### [facility] [address] [place], [place] [id number] eGFRAA 121 mL/min/1.73m2 Normal >60 [facility] Specialist Comment on above: Performed By: #### T SH, CMP, VITD, LIPD, CBCAD #### [facility] [address] [place], [place] [id number] eGFRNAA 100 mL/min/1.73m2 Normal >60 [facility] Specialist Comment on above: Performed By: #### T SH, CMP, VITD, LIPD, CBCAD #### [facility] [address] [facility] [place] [id number] Globulin (S) [Mass/Vol] 2.0 g/dL Normal 1.9-3.7 [facility] Specialist Comment on above: Performed By: #### T SH, CMP, VITD, LIPD, CBCAD #### [facility] [address] [facility] [place] [id number] Glucose [Mass/Vol] 101 mg/dL High 65-99 [facility] Calibration Specialist Comment on above: Result Comment: For FASTING Glucose --- ADA reference ranges: Normal 65-99 mg/dl Prediabetes 100-125 Diabetes >/= 126 Performed By: #### T SH, CMP, VITD, LIPD, CBCAD #### [facility] [address] [place], [place] [id number] Potassium [Moles/Vol] 4.6 mmol/L Normal 3.5-5.5 [facility] Calibration Specialist Comment on above: Performed By: #### T SH, CMP, VITD, LIPD, CBCAD #### [facility] [address] [place], [place] [id number] Protein [Mass/Vol] 7.0 g/dL Normal 6.1-8.1 [facility] Calibration Specialist Comment on above: Performed By: #### T SH, CMP, VITD, LIPD, CBCAD #### [facility] [address] [place], [place] [id number] Sodium [Moles/Vol] 143 mmol/L Normal 135-146 [facility] Calibration Specialist Comment on above: Performed By: #### T SH, CMP, VITD, LIPD, CBCAD #### [facility] [address] [place], [place] [id number] Urea nitrogen [Mass/Vol] 20 mg/dL Normal 7-25 [facility] Calibration Specialist Comment on above: Performed By: #### T SH, CMP, VITD, LIPD, CBCAD #### [facility] [address] [place], [place] [id number] Lipid Panelon 04-22-2021 Cholesterol [Mass/Vol] 249 mg/dL High 125-200 [facility] Calibration Specialist Comment on above: Result Comment: Low risk < 200mg/dL Borderline risk 201-239 mg/dl High risk > or equal to 240 Performed By: #### T SH, CMP, VITD, LIPD, CBCAD #### [facility] [address] [place], [place] [id number] Cholesterol in HDL [Mass/Vol] 58 mg/dL Normal >40 [facility] Calibration Specialist Comment on above: Result Comment: High Cardiovascular Risk HDL <40 mg/dL Low Cardiovascular Risk HDL > or equal to 60 mg/dl Performed By: #### T SH, CMP, VITD, LIPD, CBCAD #### [facility] [address] [place], [place] [id number] Cholesterol in LDL [Mass/Vol] 174 mg/dL Normal [facility] Comment on above: Result Comment: LDL ATP III CLASSIFICATION LDL less than 100 mg/dl Optimal LDL 100-129 mg/dl Near or above optimal LDL 130-159 Borderline high LDL 160-189 High LDL greater than 189 mg/dl Very High Performed By: #### T SH, CMP, VITD, LIPD, CBCAD #### [facility] [address] [place], [place] [id number] Cholesterol in VLDL [Mass/Vol] 17 mg/dL Normal [facility] Specialist Comment on above: Performed By: #### T SH, CMP, VITD, LIPD, CBCAD #### [facility] [address] [place], [place] [id number] Cholesterol.total/ Cholesterol in HDL [Mass ratio] 4 {ratio} Normal [facility] Comment on above: Performed By: #### T SH, CMP, VITD, LIPD, CBCAD #### [facility] [address] [place], [place] [id number] Triglyceride [Mass/Vol] 84 mg/dL Normal 30-150 [facility] Specialist Comment on above: Result Comment: TRIG ATPIII CLASSIFICATIONS TRIG less than 150 mg/dl Normal TRIG 150-199 mg/dl Borderline High TRIG 200-500 mg/dl High TRIG greather than 500 mg/dl Very High Performed By: #### T SH, CMP, VITD, LIPD, CBCAD #### [facility] [address] [place], [place] [id number] TSHon 04-22-2021 TSH 0.559 uIU/mL Normal 0.400-4.500 [facility] Specialist Comment on above: Performed By: #### T SH, CMP, VITD, LIPD, CBCAD #### [facility] [address] [place], [place] [id number] Vitamin D 25-OHon 04-22-2021 VIT D 25 OH 36 ng/ml Normal >29 [facility] Specialist Comment on above: Result Comment: Verna min D Status Deficiency <20 ng/mL Insufficiency 20-29 ng/mL Optimal 30-100 ng/mL Possible Toxicity >=150 ng/mL Performed By: #### T SH, CMP, VITD, LIPD, CBCAD #### [facility] [address] [place], [place] [id number] Vital Signs Date Time Vital Sign Value Performing Clinician Facility 08-13-2022 11:02-0400 Diastolic blood pressure 84 mm[Hg] DO Fco Ball Work Phone: [facility] 08-13-2022 11:02-0400 Heart rate 76 /min DO Fco Ball Work Phone: [facility] 08-13-2022 11:02-0400 Respiratory rate 16 /min DO Fco Ball Work Phone: [facility] 08-13-2022 11:02-0400 SaO2% (BldA) [Mass fraction] 100 % DO Fco Ball Work Phone: [facility] 08-13-2022 11:02-0400 Systolic blood pressure 125 mm[Hg] DO Fco Ball Work Phone: [facility] 08-13-2022 09:29-0400 Body height 167.64 cm DO Fco Ball Work Phone: [facility] 08-13-2022 09:29-0400 Body temperature 98.3 [degF] DO Fco Ball Work Phone: [facility] 08-13-2022 09:29-0400 Body weight 68.03 kg DO Fco Ball Work Phone: [facility] 03-25-2022 08:29-0500 Blood Pressure Location Silvia Lue [facility] 03-25-2022 08:29-0500 Diastolic blood pressure 87 mm[Hg] Silvia Lue [facility] 03-25-2022 08:29-0500 Heart rate 80 /min Silvia Lue [facility] 03-25-2022 08:29-0500 Systolic blood pressure 125 mm[Hg] Silvia Hodges [facility] 11-22-2021 10:55-0400 Body height 167.64 cm Brittany Itzel Other [employer] Other 11-22-2021 10:55-0400 Body mass index (BMI) [Ratio] 24.69 kg/m2 Brittany Itzel Other [employer] Other 11-22-2021 10:55-0400 Body temperature 98 [degF] Brittany Itzel Other [employer] Other 11-22-2021 10:55-0400 Body weight 69.4 kg Brittany Cabralesmond Other [employer] Other 11-22-2021 10:55-0400 Diastolic blood pressure 77 mm[Hg] Brittany Itzel Other [employer] Other 11-22-2021 10:55-0400 Respiratory rate 18 /min Brittany Itzel Other [employer] Other 11-22-2021 10:55-0400 SaO2% (BldA) [Mass fraction] 100 % Brittany Itzel Other [employer] Other 11-22-2021 10:55-0400 Systolic blood pressure 137 mm[Hg] Brittany Itzel Other [employer] Other Encounters Encounter Date Encounter Type Care Provider Facility Start: 04-29-2023 End: 04-29-2023 ambulatory Fco Ball Other [employer] Other Start: 04-29-2023 Telephone encounter Fco [facility]ID [facility] Start: 04-19-2023 End: 04-19-2023 ambulatory Fco Glasgow Other [facility] [employer] Other Start: 04-19-2023 Telephone encounter Fco [facility] Start: 09-08-2022 End: 09-08-2022 ambulatory Imad Asaad Other [employer] Other Start: 09-08-2022 Telephone encounter Imad Asaad [facility] Start: 08-13-2022 Telephone encounter Fco Gl[facility] Start: 08-13-2022 End: 08-13-2022 Admission to same day surgery center DO Fco Glasgow Work Phone: [facility] Work Phone: Start: 08-13-2022 End: 08-13-2022 ambulatory DO Fco [place] Work Phone: [facility] Work Phone: Start: 07-20-2022 End: 07-20-2022 ambulatory Imad Asaad Other [employer] Other Start: 07-20-2022 Telephone encounter Imad Asaad [facility] Start: 07-13-2022 End: 07-13-2022 ambulatory Fco Glasgwo Other [facility] Other Start: 07-13-2022 Telephone encounter Fco [facility] Start: 06-29-2022 End: 06-29-2022 ambulatory Fco [place] Other [facility] [employer] Other Start: 06-29-2022 Telephone encounter Fco [facility] Start: 06-23-2022 End: 06-23-2022 ambulatory Fco [place] Other [facility] [employer] Other Start: 06-23-2022 Telephone encounter Fco [place] [facility] Start: 06-11-2022 Telephone encounter Fco Glasgow [facility] Start: 06-11-2022 End: 06-11-[address] FCO GLASGOW Facility:[facility] Start: 06-10-2022 End: 06-10-2022 ambulatory Fco [place] Other [employer] Other Start: 06-10-2022 Telephone encounter Fco Glasgow [facility] Start: 04-27-2022 End: 04-28-[address] FCO GLASGOW Facility:[facility] Start: 04-25-2022 Encounter for genera l adult medical examination without abnormal findings DR FCO GLASGOW [facility] Start: 04-17-2022 End: 04-18-[address] FCO GLASGOW Facility:[facility] Start: 04-17-2022 End: 04-18-2022 Encounter for general adult medical examination without abnormal findings DR FCO GLASGOW Facility:[facility] Start: 03-25-2022 End: 03-26-2022 ambulatory Silvia Hodges Facility:[facility] Start: 03-25-2022 End: 03-25-2022 Patient encounter procedure Silvia Hodges [facility] Start: 03-23-2022 End: 03-24-[address] FCO GLASGOW Facility:[facility] Start: 11-22-2021 Office outpatient ne w 30 minutes Brittany Robbins [facility] Start: 11-22-2021 End: 11-22-2021 ambulatory Brittany Robbins [facility] [employer] Other Start: 08-28-[address] AME Castro lity:H1 Procedures Date Procedure Procedure Detail Performing Clinician Start: 08-13-2022 Screening colonoscopy D O Fco Glasgow Work Phone: Start: 04-10-2020 Extracorporeal shock wave lithotripsy of calculus of kidney Silvia Hodges Colonoscopy Silvia Lue Plan of Treatment Date Care Activity Detail Author Start: 08-13-2022 [facility] Patient Education Hemorrhoids (DC) [facility] Work Phone: Immunizations Immunization Date Immunization Notes Care Provider Fadumo pereira 04-17-2022 influenza virus vaccine, split virus (incl. purified surface antigen) Fco Pee Other [employer] Other 07-18-2021 zoster vaccine recombinant Silvia Lue [facility] 05-13-2021 zoster vaccine recombinant Silvia Lue [facility] 04-22-2021 SARS-CoV-2 (COVID-19 ) mRNA-1273 vaccine Silvia Lue [facility] 08-30-2020 SARS-CoV-2 (COVID-19 ) mRNA-1273 vaccine Silvia Lue [facility] 08-02-2020 SARS-CoV-2 (COVID-19 ) mRNA-1273 vaccine Silvia Lue [facility] 05-17-2020 SARS-CoV-2 (COVID-19 ) mRNA-1273 vaccine Silvia Lue [facility] Comment on above: Result Comment: pt i s fully vaccinated but can not remember the dates 02-09-2020 influenza virus vaccine, unspecified formulation Silvia Lue [facility] 01-16-2020 influenza virus vaccine, unspecified formulation Silvia Lue [facility] 03-30-2018 tetanus toxoid, reduced diphtheria toxoid, and acellular pertussis vaccine, adsorbed Silvia Hodges [facility] Payers Date Payer Category Payer Unknown [id number] 2.16.8 [id number] 1960 Unknown [id number] 2.16.84 [id number] 1960 Unknown [id number] 2.16.84 [id number] 1960 Unknown [id number] 2.16.84 [id number] 1960 Unknown [id number] 2.16.84 [id number] 1960 Unknown [id number] 2.16.84 [id number] 1959 Self-pay 1959 Unknown [id number] Unknown [id number] Unknown [id number] 2.16.8 [id number] Unknown [id number] 2.16.8 [id number] Social History Date Type Detail Facility Sex Assigned At [facility] Start: 04-18-2020 End: 08-13-2022 Tobacco smoking status Never smoked tobacco (finding) [facility] Start: 1960 Sex Assigned At Female F [facility] Goals Date Patient Goal Desired Activity /State Functional Status Date Assessment Result Facility 03-25-2022 Functional Status N/A [facility] Clinical Notes 11-22-2021 to 08-13-2022 Note Date & Type Note Facility 08-13-2022 Procedure note [facility] 07-15-2022 History general N arrative - Reported Type Medical History Hypertension Medical History Hypothyroidism Surgical History thyroidectomy, subtotal Surgical History Colonoscopy 07/2022 Hospitalization History see above [facility] [employer] Other 01-26-2023 Evaluation note* Encounter Date Diagnosis Assessment Notes Treatment Notes Treatment Clinical Notes May, Diarrhea of presumed infectious origin (ICD-10 - R19.7) [facility] Other 11-09-2022 Hospital Discharge instructions Patient Education 03/25/2022 08:50:27 Kidney Stones, [id number] Kidney Stones Kidney stones are rock-like masses [...] Follow these instructions at home: Medicines Take [id number] and prescription medicines only as told by [...] 10/19/2008 Document Revised: 09/19/2019 Document Reviewed: 09/19/2019 [employer] Patient Education 2019 [employer]. Follow Up Care 02/20/2021 09:03:25 With:Carroll SCOTT, RICHELLE Lebron, URO Address: When: Unknown [facility] 07-09-2022 Evaluation note* Encounter Date Diagnosis Assessment [...] the ER for worsening symptoms or concerns. [employer] Other Evaluation + Plan note No data available for this section [facility] evaluation noteNo InformationNort [employer] Other Evaluation noteNo assessment information available [facility] Work Phone: History and physical note Author Jessica Parada [facility] August 13, 2022 10:05am Note Date/Time August 13, 2022 10: 05am [facility] [address] [place] [address] Gastroenterology H&P Signed Patient: Jazlyn Hernandes MR#: [id number] : 1960 Acct:[id number] Age/Sex: 61 / F Adm Date: 3 Loc: Room: Type: [facility] Attending Dr: Jessica Parada MD [...] signed by Jessica Parada MD> 08/13/[address] 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 for [...] years -Follow up with PCP. -Office number [phone]. [facility] Work Phone: Progress note No data available for this section [facility] reason for referral (narrative)* Reason 08/13/22 @ [facility] Mary romero for screening colonoscopy Diagnosis 1 Screening for colon cancer (Z12.11) Referral Organization [facility] Pee darby Referring Provider First Name Fco Referring Provider Last Name Pee Referring Provider Specialty Internal Me dicine Referred Organization [facility] Gastroenterolo gy Referred Provider Bubba Rebollar Referred Address [address], [place],[address] Referred Provider Specialty Gastroentero logy Referral Priority [...] nausea, indigestion, heartburn, dysphagia, melena or hematochezia. [employer] Other Summary Purpose Family History Relationship Condition [...] section and content) DATE CREATED AUTHOR 08/29/2021 [facility] Specialist DATE CREATED AUTHOR AUTHOR'S ORGANIZ ATION 03/25/2022 [facility] DATE CREATED AUTHOR AUTHOR'S ORGANIZ ATION 06/16/2022 [facility] DATE CREATED AUTHOR AUTHOR'S ORGANIZ ATION 08/21/2022 [facility] REASON FOR VISIT (unrecogniz ed section [...] BE BASED ON THE PRIMARY CLINICAL RECORDS. [facility] [employer] [facility]. provides no warranty or guarantee of the accuracy or completeness of information in this document.
[2024-08-03 11:59] LABS: Basophils Percent Auto 0.5 % (0.2-2.0); Eosinophils Absolute Auto 0.1 10^3/uL (0.0-0.7); Eosinophils Percent Auto 1.8 % (0.9-7.0); Hematocrit 40.4 % (36.0-48.0); Hemoglobin 13.8 g/dL (12.0-16.0); Immature Granulocytes Abs Auto 0.07 10^3/uL (0.00-0.03); Immature Granulocytes Pct Auto 1.3 % (0.0-0.5); Lymphocytes Absolute Auto 1.9 10^3/uL (1.2-3.8); Lymphocytes Percent Auto 33.3 % (20.5-60.0); Mean Corpuscular HGB Conc 34.2 g/dL (29.9-35.2); Mean Corpuscular Hemoglobin 31.1 pg (26.7-34.0); Mean Platelet Volume 9.6 fL (9.5-13.5); Monocytes Absolute Auto 0.3 10^3/uL (0.3-0.8); Neutrophils Absolute Auto 3.2 10^3/uL (1.4-6.5); Neutrophils Percent Auto 58.1 % (43.0-75.0); Platelet Count 258 10^3/uL (150-450); Red Blood Count 4.44 10^6/uL (4.20-5.40); White Blood Count 5.6 10^3/uL (4.0-11.0)
== END 2024-08-03 11:30 | disposition home or self-care (01) ==
LOC: LAB 11:31
PROVIDERS: PCP Internal Medicine; Visit Provider Internal Medicine
DX: D72.829 Elevated white blood cell count, unspecified (principal)
CPT/HCPCS: 36415; 85025

== ENCOUNTER 2025-04-27 08:27 | Outpatient (OUT) | payer OTHER, SELFPAY ==
--- OUTSIDE RECORDS SUMMARY | 2025-04-26 04:56 | XMS_ITS | Continuity of Care Document ---
Author Organization [facility] Address [address] [place] [address] Phone Care Team Providers Care Pneumatic Tube Repairer Name Role Phone Fco Glasgow DO Primary Care Provider Fco Glasgow DO Attending Provider [phone] Care Teams Patient Care Team Team Status: Active Member Role/Relationship Status Dates Fco Glasgow DO Primary Care Provider Active Patient Care Team Team Status: Inactive Member Role/Relationship Status Dates Fco Glasgow DO Primary Care Provider Active Start: April 26, 2025 End: April 26enjacelena Glasgow DOAttending ProviderActiveStart: April 26, 2025 End: April 26, 2025 Chief Complaint and Reason for Visit Chief Complaint Admit Date Wellness April 26, 2025 9:22am Reason for Visit Admit Date GERD (gastroesophageal reflux disease) D ecember 2024 9:22am Hypertension April 26, 2025 9:22am Hypothyroid April 26, 2025 9:22am Screening mammogram for breast cancer [facility] 2024 9:22am Wellness examination April 26, 2025 9:22am Allergies, Adverse Reactions, Alerts Allergen Type Severity Reaction Last Updated Verified Status hydrochlorothiazide Allergy Unknown Unknown Reaction April 26, 2025 9:24am Yes Active lisinopril Allergy Unknown Unknown Reaction April 26, 2025 9:24am Yes Active Social History Smoking Status Status Start Date End Date Date of Observa tion Never smoked tobacco (finding) August 13, 2022 9:26am Observation Status Observation Response Date of Response Legal Sex Female (finding) Sex Assigned At BirthFemaleMay 1960 Family History Relationship Condition Age at Onset Recorded Date/T celestine mother Hypertension Unknown HyperlipidemiaUnknownfatherHypertensionUnknownHyperlipidemiaUnknownfamily member Malignant neoplasm of lungUnknown Problems Active Problems Problem Diagnosis/Recorded Date Onset Date Stat Screening mammogram for breast cancer April 18 6:54am Unknown Active Wellness examination April 18, 2024 6:49am Unknown Active Hypothyroid April 18, 2024 6:50am Unknown Ac tive GERD (gastroesophageal reflux disease) April 18 6:50am Unknown Active Hypertension April 18, 2024 6:53am Unknown Ac tive Medications Medication Status Dose Units Route Directions Qty Days Refills S tart Date Stop Date End Date Reason(s) Instructions Adherence Hydrochlorothiazide 25 mg tablet Discontinued 0 .ROUTE.OWMPYFG633Rsmrygcdw 2023 7:45amAugust 2024 7:36amTake 1 tablet by mouth once dailyLosartan 100 mg tabletActive0.ROUTE.UEISSPP256Ztaslhrp 2023 12:58pmTake 1 tablet by mouth once dailyComplies with drug therapy Hydrochlorothiazide 25 mg tabletDiscontinued0.ROUTE.MPZIRKE506Yxsqmv 2024 7:36amNovember 2024 6:57amTake 1 tablet by mouth once dailyAmlodipine 5 mg swlrhtTweeiz4GYUQXscvy23443Bosxihvk 2024 6:56amComplies with drug therapy Hydrochlorothiazide 25 mg uvgwctXoinaw68GHDXGyzdy85982Vehzqtdn 2024 6:56am Complies with drug therapyAmlodipine 5 mg qzretkJjziydcfgcum4NOAEJooyfRvrvj 2022 11[facility] 8:46amLevothyroxine 25 mcg tablet Wclujewyksur71NBDZEFulpyAuocm 2022 11:[facility]pm[facility] 2023 8:46am Omeprazole 20 mg Capsule,Delayed Release(Dr/Ec)Whdvetbokfrs60TBTYNisrxGdcvj 2022 11:00pm[facility] 2023 8:46amHydrochlorothiazide 25 mg tablet Quxvhomiwrpt14SHEHMsfrkMpsiw 2022 11:00pmSeptember 2023 7:45am Losartan 100 mg gprkryLdwsshekvtrl631XQNRUaxqqBivuu 2022 11:00pmDece2023 8:46amAmlodipine 5 mg zvilaqNioqbimmpgay3ZTPZPgnzl86650Ibapgtvp 5th, 2024 8:43amNovember 2024 6:57amLevothyroxine 25 mcg zyffrpVcubruvjmkvh86RWV OGBvhma59163Oebuaeue 5th, 2024 8:43amDecember 2024 9:40amLosartan 100 mg jnkxlaRlycvahrycwp057WMYXXmfye60643Qtjgovyw 5th, 2024 8:44amDecember 2023 12:58pmOmeprazole 20 mg capsule,delayed release(DR/EC)Zhueoi78YQVRNpwfc22642 April 20, 2024 8:45amComplies with drug therapyLevothyroxine 25 mcg tablet Njoqij85DBQACLrpgr25000Fhxqubvz 11th, 2025 9:40amComplies with drug therapy Immunizations Immunization Event Date Not Given Reason Dose Number [employer] Lot Number Reason(s) Given Vaccine Information Statement (VIS) Detail Administration Location Influenza, seasonal, injectable, pf [id number], [facility] formulationApril 17, 2022 Vital Signs Vital Reading Result Reference Range Collection Date/Time Height 66 [in_i] April 26, 2025 9:56caZtrqzc45.14 kgApril 26, 2025 9:26amHeart Rate76 /kyp04-180JdfowafoApril 26, 2025 9:26amRespiratory rate12 /ftb10-37Epseoqrx 11th, 2025 9:26amBP Zmcplzvq559 mm[Hg]100-140Dece2024 9:26amBP Xuoghajhn12 mm[Hg]60-100Decemb2024 9:26amBMI (Body Mass Index)26.0 kg/a3LeudwbjrApril 26, 2025 9:26am Advance Directives Advance Directive Response Recorded Date/ Time Advance Directives No November 25 9:56am Insurance Providers Guarantor Sandra Delarosa Address [address] [facility] [facility] [address].Home Phone: Payer Group Member ID Coverage Type Subscriber Relationship to Subscriber Effective Date Expiration Date O Id: [id number] Sandra Hernandes Id: [id number] [address] [facility] [address] Home Phone: Self Encounters Encounter Location(s) Arrival/Admit Date Discharge/Departure Date Discharge/Departure Disposition Provider(s) Departed Physician/ Provider Office Visit -SANNA [facility] April 26, 2025 9:22am April 26, 2025 9:55am Discharged to home care or self care (routine discharge) Fco Glasgow , DO Recent Diagnosis Onset Date Admit Date GERD (gastroesophageal reflux disease) Unknown April 26, 2025 9:22am Hypertension Unknown April 26, 025 9:22am Hypothyroid Unknown April 26, 2 025 9:22am Screening mammogram for breast cancer Unknown April 26, 2025 9:22am Wellness examination Unknown April 262024 9:22am Assessments Diagnosis Onset Date Resolution Status Admit Date GERD (gastroesophageal reflux disease) acuteDe2024 9:22amHypertensionacuteDecember 2024 9:22am HypothyroidacuteDeceer 2024 9:22amScreening mammogram for breast cancer acuteDe2024 9:22amWellness examinationacuteDece2024 9:22am Plan of Treatment Author Fco Glasgow [facility] 2024 7:14amI have instructed this patient on the recommended lifestyle changes, which includes a low fat, high fiber diet along with a regular exercise routine. I have also reviewed the recommended age-appropriate preventive testing for this patient. I have also reviewed the recommended vaccines for their age and risk factors. I have instructed this patient to consume a healthy, low-fat, low-salt diet. I have also encouraged them to continue exercise with weight loss to achieve/maintain a BMI < 30. I have instructed this patient on the correct procedure for obtaining home BP measurements:? - rest for 5 minutes w/o talking. - positioned w/ feet on floor and arms supported. - average best 2/3 readings w/ goal < 135/85. - update office w/ home readings in 2 weeks. Clinically euthyroid, monitor TSH yearly I have instructed this patient to avoid lying flat after eating.?? I have also recommended to avoid eating 2 hours prior to bedtime.?? They were also informed that smaller, frequent meals may be better tolerated. I have discussed additional treatment options for persistent symptoms, which includes: weight loss, H2 blockers and PPI. I have also instructed them to notify the office with any pain or difficulty swallowing. I have instructed this patient on monthly SBE and recommended yearly mammograms. Future Tests Future scheduled test information is unavailable Pending Tests Test Name Ordered Date Scheduled Date Comprehensive Metabolic Panel April 26 9:52am Future Visits Future appointment information is unavailable Future Procedures Procedure Name Ordered Date Scheduled Date Complete Blood Count Auto Diff April 26 9:52am Lipid PanelDecember 2024 9:52amThyroid Stimulating HormoneDecember 2024 9:52am Future Medications Future medication information is unavailable Patient Instructions Patient instructions are unavailable
--- OUTSIDE RECORDS SUMMARY | 2025-04-27 08:31 | XMS_ITS | CCD ---
Author Organization [facility] Care Team Providers Care Division Chair Name Role Phone Brittany Robbins Unavailable Silvia Hodges Attending Unavailable FCO GLASGOW Primary Care Physician PEE, DR BARTH Primary Care Unavailable SALVADOR GUERRERO, DR THUY Thayer Attending Unavailangela PEGUERO JR, DR THUY Thayer Admitting Unavailangela POWELL, DR JESSICA Gardner Consulting Unavailable SALVADOR GUERRERO, DR THUY Thayer Consulting Unavailabl lashonda SUTTON, DR MCCLOUD Primary Care Unavailable PEE, [...] Attending Unavailable PEE, DR BARTH Consulting Unavailable Pee, Fco Unavailable Asaad, Imad Unavailable MD Jessica Parada Attending Provider DO Fco Glasgow Primary Care Provider Asaad, Imchristina Admitting Unavailable Tal, Imchristina Attending Unavailable Fco [place] Primary Care Unavailable Brittany Robbins Admitting Unavailable Brittany Robbins Attending Unavailable Allergies Allergy ClassificationReported Allergen(s)Allergy TypeDate of OnsetReaction(s) Facility (2 sources)hydroCHLOROthiazide / LisinoprilDrug AllergyUnkWright [facility] Other Medications Current Medications MedicationDrug Class(es)DatesSig (Normalized)Sig (Original)amLODIPine 5 mg oral tablet (4 sources)Dihydropyridine Calcium Channel BlockerStart: 40-31-7634fcqz 5 mg by mouth once dailyAmlodipine Active 5 MG PO Daily August 13, 2022 12:00amStart: 89-25-3981zbhpzgpcwg Oral, Daily, Refills(s) 0 Start Date: 03/25/22 Status: OrderedamLODIPine Benzoate (10 sources)amLODIPine Benzoate ActivehydroCHLOROthiazide 25 mg oral tablet (14 sources)Thiazide DiureticStart: 36-43-6314ygju 25 mg by mouth once daily Hydrochlorothiazide Active 25 MG PO Daily August 13, 2022 12:00amStart: 35-59-1021evyl 1 tablet by mouth once dailyhydrochlorothiazide 12.5 mg Tab 25 mg = 2 tab(s), TAKE 1 TABLET BY MOUTH ONCE DAILY FOR 90 DAYS Start Date: 06/17/20 Status: OrderedhydroCHLOROthiazide Activelevothyroxine sodium 0.025 mg oral tablet (14 sources)l-ThyroxineStart: 22-38-4869yhgq 25 ug by mouth once daily Levothyroxine Active 25 MCG PO Daily August 13, 2022 12:00amStart: 07-11-2020 take 1 tablet by mouth once dailylevothyroxine 25 mcg (0.025 mg) Tab mcg tab(s), Oral, Daily, Refills(s) 0 Start Date: 07/11/20 Status: OrderedLevothyroxine Sodium Activelosartan potassium 100 mg oral tablet (14 sources)Angiotensin 2 Receptor BlockerStart: 42-54-1359xnkd 100 mg by mouth once dailyLosartan Active 100 MG PO Daily August 13, 2022 12:00amStart: 87-76-2801yyti 1 tablet by mouth once dailylosartan 50 mg Tab TAKE 1 TABLET BY MOUTH ONCE DAILY FOR 90 DAYS Start Date: 06/17/20 Status: OrderedLosartan Potassium Activeomeprazole 20 mg delayed release oral capsule (13 sources)Proton Pump InhibitorStart: 61-49-8677lmnk 1 capsule by mouth once dailyOmeprazole (Prilosec) 20 mg Capsule,Delayed Release(Dr/Ec) Active 20 MG PO Daily August 13, 2022 12:00amtake 1 tablet by mouth once dailyPriLOSEC OTC 20 MG 1 tablet 30 minutes before morning meal Orally Once a day Activetake 1 tablet by mouth once dailyPriLOSEC OTC 20 MG 1 tablet 30 minutes before morning meal Orally Once a day ActivePriLOSEC Active Completed/Discontinued Medications MedicationDrug Class(es)DatesSig (Normalized)Sig (Original)polyethylene glycol 3350 251165 mg / potassium chloride 2970 mg / sodium bicarbonate 6740 mg / sodiu m chloride 5860 mg / sodium sulfate 30396 mg powder for oral solution (8 sources)Osmotic LaxativeStart: 37-61-1542Eivsdoao 236 GM 8oz every 15 minutes Orally at 4pm the day prior to colonoscopy for 1 days Jul, Not-Taking/PRN Problems Active Problems Problem ClassificationProblemDateDocumented DateEpisodic/ChronicCalculus of urinary tract (7 sources)Kidney stone; Translations: [Calculus of kidney]Onset: 03-23-2022 EpisodicDisorders of lipid metabolism (2 sources)Hypercholesterolemia; Translations: [Pure hypercholesterolemia, unspecified]ChronicEsophageal disorders (2 sources)Gastro-esophageal reflux disease with esophagitis; Translations: [Gastroesophageal reflux disease with esophagitis without hemorrhage]Chronic Essential hypertension (3 sources)Hypertensive disorder; Translations: [Essential hypertension] 42-98-3284PchuflwNgjgmbbpqaqgc symptoms and ill-defined conditions (3 sources)Stress incontinence (female) (male); Translations: [Genuine stress incontinence]Onset: 95-42-4226YujoopsMcwcydzytknxr symptoms and ill-defined conditions (3 sources)Increased frequency of urination; Translations: [Frequency of micturition]Onset: 43-37-5192CrbitcgsYhjbk gastrointestinal disorders (5 sources)Diarrhea, unspecified; Translations: [DIARRHEA UNSPECIFIED]Onset: 21-42-0745EifismghJivoz screening for suspected conditions (not mental disorders or infectious disease) (4 sources)Encounter for screening mammogram for malignant neoplasm of breast; Translations: [ENC SCR MAMMO MALIG NEOPLASM BREAST]Onset: 15-40-6149Rugpzdst Residual codes; unclassified (1 source)Family history of malignant neoplasm of breast; Translations: [FAMILY HX MALIG NEOPLASM OF BREAST]Onset: 16-93-2370IowfwugfJtljjatt codes; unclassified (1 source)Family history of malignant neoplasm of trachea, bronchus and lung; Translations: [FAM HX MALIG NEOPLSM TRACH BRON LNG]Onset: 28-65-8533Verfqzwf Thyroid disorders (5 sources)Hypothyroidism; Translations: [Autoimmune thyroiditis]03-21-2020 ChronicUnclassified (1 source)Diarrhea, unspecified; Translations: [Diarrhea, unspecified]Onset: 86-47-0361Ewjtofjoijrr (1 source)M79.642 - Pain in left hand; Translations: [M79.642 - Pain in left hand]Onset: 11-22-2021 Past or Other Problems Problem ClassificationProblemDateDocumented DateEpisodic/ChronicFracture of upper limb (1 source)Nondisplaced fracture of proximal phalanx of left little finger, initial encounter for closed fractureOnset: 11-22-2021 Resolved: 18-34-6998KkrqboqnRgpus connective tissue disease (1 source)Pain in left handOnset: 11-22-2021 Resolved: 01-01-5283Svblfuoz Results Test NameValueInterpretationReference Oscar 08-13-2022L Specimen: [id number] Received: 08/13/22 Status: JOSEFINA Taveras Num: [id number] Spec Type: Surgical Subm Dr: Jessica Parada MD Tissues: A Colon Biopsy (RANDOM COLON BX) Procedures: HE/2, Gross/Micro L4 Age/ Patient Sex Location Account Attending Physician Jazlyn Hernandes 61/F [id number] Jessica Parada MD SPEC NUM: [id number] RECD: 08/13/22 STATUS: JOSEFINA TAVERAS NUM: [id number] MAIKEL: 08/13/22- [facility] [place] DR: Jessica Parada MD ENTERED: 08/13/[address] [facility] [address]: DONNA TYPE: Surgical DEPT: S ORDERED: HE/2, Gross/Micro [...] findings support the above pathologic diagnosis. Specimen: Received: 08/13/22 Status: JOSEFINA Taveras Num: [id number] Spec Type: Surgical Subm Dr: Jessica Parada MD Tissues: A Colon Biopsy (RANDOM COLON BX) Procedures: Lindy RICH/Micro L4 Patient: Jazlyn Hernandes [id number] (Continued) Specimen: Received: 08/13/22 (Continued) Signed (signature on file) Jojo De La Torre MD 08/14/22 1219 Specimen: Received: 08/13/22 Status: JOSEFINA Taveras Num: [id number] Spec Type: Surgical Subm Dr: Jessica Parada MD Tissues: A Colon Biopsy (RANDOM COLON BX) Procedures: Lindy RICH/Micro L4 Patient: Jazlyn Hernandes [id number] (Continued) Specimen: [id number] Received: 08/13/22 (Continued) CPT Codes 61901 Specimen: Received: 08/13/22 Status: JOSEFINA Taveras Num: [id number] Spec Type: Surgical Subm Dr: Jessica Parada MD Tissues: A Colon Biopsy (RANDOM COLON BX) Procedures: HE/2, Gross/Micro L4 Patient: Jazlyn Hernandes [id number] (Continued) Signed (signature on file) Jojo De La Torre MD 08/14/[address] [place], [place] [address]TO CULTUREon 06-15-2022 Campylobacter CultureFinal reportOhioHealth Grady Memorial HospitalComment on above: Performed By: #### CXSTOOL #### [facility] [address] [place] [address] Dr. Philly Montalvo coli Shiga Toxin EIANegativeNoecu healthNegativeElyria Memorial Hospital Comment on above:Performed By: #### CXSTOOL #### [facility] [address] [place] [address] Dr. Philly Augustine 1CommentOhioHealth Grady Memorial HospitalComment on above:Result Comment: No Salmonella or Shigella recovered.Performed By: #### CXSTOOL #### [facility] [address] [address] [address] Philly Augustine Comment: No Campylobacter species isolated. Salmonella/Shigella ScreenFinal reportOhioHealth Grady Memorial HospitalComment on above:Performed By: #### CXSTOOL #### [facility] [address] [place] [address] Dr. Philly Youngblood. DIFF PCRon 06-11-2022. DIFFICILE PCRNegativeNormalNEGATIVEThe Marion HospitalComment on above:Performed By: #### CDIFPOC #### [facility] [address] [place] [address] Dr. Philly Calabrese MAMM SCREEN 3D RADHA CADon 97-85-3302BQ MAMM SCREEN 3D RADHA CAD Patient: JAZLYN HERNANDES Exam Date: 04/27/2022 : 1960 Gender:F Ordering : DR FCO GLASGOW D.O. Admission #: [id number] Family : Order #: [id number] CLICK HERE TO VIEW EXAM RADIOLOGY REPORT [...] lung cancer at age 65. LOCATION: [facility] BREAST COMPOSITION: Heterogeneously dense,which may obscure [...] by: Jessica Powell MD on 04/27/2022 at 08:45NoTrinity Health SystemCBC AUTO DIFFon [id number] #0.0 103/ulNormal0.0-0.1Elyria Memorial HospitalComment on above:Performed By: #### CBC #### [facility] [address] [place] [address] Dr. Philly Sánchezsophils/100 WBC (Bld)0.7 %Normal0.2-2.0[facility] Comment on above:Performed By: #### CBC #### [facility] [address] [place] [address] Dr. Philly Matos #0.1 103/ulNormal0.0-0.7The [facility] HospitalComment on above: Performed By: #### CBC #### [facility] [address] [place] [address] Dr. Philly Montalvoosinophils/100 WBC (Bld)3.1 %Normal0.9-7.0[facility] Comment on above:Performed By: #### CBC #### [facility] [address] [place] [address] Dr. Philly Montalvorythrocyte distribution width (RBC) [Ratio]11.9 %Noksid86.0-15.0 The [facility] HospitalComment on above:Performed By: #### CBC #### [facility] [address] [place] [address] Dr. Philly CedilloHematocrit (Bld) [Volume fraction]37.9 %Kpkiyb48.0-48.0The [facility] HospitalComment on above:Performed By: #### CBC #### [facility] [address] [place] [address] Dr. Philly CedilloHemoglobin (Bld) [Mass/Vol]12.8 g/lOJgwsxq03.0-16.0The [facility] HospitalComment on above:Performed By: #### CBC #### [facility] [address] [place] [address] Dr. Philly Myers #0.01 10e3/ulNormal0.00-0.03The [facility] HospitalComment on above:Performed By: #### CBC #### [facility] [address] [place] [address] Dr. Philly Myers %0.2 %Normal0.0-0.5The [facility] HospitalComment on above: Performed By: #### CBC #### [facility] [address] [place] [address] Dr. Philly IzaguirreH #1.6 103/ulNormal1.2-3.8The [facility] HospitalComment on above:Performed By: #### CBC #### [facility] [address] [place] [address] Dr. Philly Cantormphocytes/100 WBC (Bld)37.5 %Hhbjte49.5-60.0The [facility] HospitalComment on above:Performed By: #### CBC #### [facility] [address] [place] [address] Dr. Philly BranchUAL DIFF REQNONormalThe Marion HospitalComment on above: Performed By: #### CBC #### [facility] [address] [place] [address] Dr. Philly Matt (RBC) [Entitic mass]30.5 ptDbuoji05.7-34.0The [facility] HospitalComment on above:Performed By: #### CBC #### [facility] [address] [place] [address] Dr. Philly Matt (RBC) [Mass/Vol]33.8 g/fQOnpecy70.9-35.2The [facility] HospitalComment on above:Performed By: #### CBC #### [facility] [address] [place] [address] Dr. Philly Matt (RBC) [Entitic vol]90.5 lUBvybai01.0-99.0The [facility] HospitalComment on above:Performed By: #### CBC #### [facility] [address] [place] [address] Dr. Philly Joya #0.3 103/ulNormal0.3-0.8The [facility] HospitalComment on above:Performed By: #### CBC #### [facility] [address] [place] [address] Dr. Philly Lemosocytes/100 WBC (Bld)7.3 %Normal1.7-12.0[facility] Comment on above:Performed By: #### CBC #### [facility] [address] [place] [address] Dr. Philly Lindquist #2.2 103/ulNormal1.4-6.5The [facility] HospitalComment on above:Performed By: #### CBC #### [facility] [address] [place] [address] Dr. Philly Barnettutrophils/100 WBC (Bld)51.2 %Kqzfis40.0-75.0The [facility] on above:Performed By: #### CBC #### [facility] [address] [place] [address] Dr. Philly Teelet mean volume (Bld) [Entitic vol]9.2 fLCritically low 9.5-13.5The [facility] on above:Performed By: #### CBC #### [facility] [address] [place] [address] Dr. Philly CeidlloPLT222 103/ffGifwda056-739Rto [facility] on above: Performed By: #### CBC #### [facility] [address] [place] [address] Dr. Philly CedilloRBC4.19 106/ulCritically low4.20-5.40The [facility] on above:Performed By: #### CBC #### [facility] [address] [place] [address] Dr. Philly CedilloWBC4.2 103/ulNormal4.0-11.0The [facility] on above: Performed By: #### CBC #### [facility] [address] [place] [address] Dr. Philly WoodID PROFILEon 46-01-5235FBWM-HDL RATIO NORMSEE [facility] HospitalCom[facility] on above:Result Comment: 3.3 - 4.4 LOW RISK 4.4 - 7.1 AVERAGE RISK 7.1 - 11.0 MODERATE RISK >11.0 HIGH RISKPerformed By: #### TSH, CMP, LIPID #### [facility] [address] [place] [address] Dr. Philly CedilloCholesterol [Mass/Vol]217 mg/dLCritically high<=200The [facility] on above:Performed By: #### TSH, CMP, LIPID #### [facility] [address] [place] [address] Dr. Yilan ChangCholesterol in HDL [Mass/Vol]72 mg/dLCritically inkc21-02Ppr [facility] HospitalComment on above:Performed By: #### TSH, CMP, LIPID #### [facility] [address] [address] [address] Philly Nunesesterol in LDL [Mass/Vol]126.8 mg/dLNoTrinity Health SystemComment on above:Performed By: #### TSH, CMP, LIPID #### [facility] [address] [address] [address] Philly Helm.total/Cholesterol in HDL [Mass ratio]3.0 {ratio} NormalThe [facility] HospitalComment on above:Performed By: #### TSH, CMP, LIPID #### [facility] [address] [place] [address] Dr. Philly Bynum NORMAL> or = 60 mg/dl - LOW CARDIOVASCULAR RISK <40 mg/dl - HIGH CARDIOVASCULAR RISKNoTrinity Health SystemComment on above:Performed By: #### TSH, CMP, LIPID #### [facility] [address] [place] [address] Dr. Philly Plaza CALC NORMALSEE BELOWOhioHealth Grady Memorial HospitalComment on above:Result Comment: <100 mg/dl OPTIMAL 100 - 129 mg/dl NEAR OR ABOVE OPTIMAL 130 - 159 mg/dl BORDERLINE HIGH 160 - 189 mg/dl HIGH >190 mg/dl VERY HIGH Performed By: #### TSH, CMP, LIPID #### [facility] [address] [place] [address] Dr. Philly CedilloTriglyceride [Mass/Vol]91 mg/dLNormal<=150[facility] Comment on above:Performed By: #### TSH, CMP, LIPID #### [facility] [address] [place] [address] Dr. Philly ParekhLDL CALC18.2 mg/dLNoTrinity Health SystemComment on above: Performed By: #### TSH, CMP, LIPID #### [facility] [address] [place] [address] Dr. Philly CedilloPROOlivia 14(COMP METB)on 50-16-4981Gyqjeet [Mass/Vol]4.3 g/dLNormal 3.4-5.0The [facility] HospitalComment on above:Performed By: #### TSH, CMP, LIPID #### [facility] [address] [address] [address] Philly CedilloAlbumin/Globulin [Mass ratio]1.3 {ratio}NormalThe [facility] HospitalComment on above:Performed By: #### TSH, CMP, LIPID #### [facility] [address] [address] [address] Philly HarmanP [Catalytic activity/Vol]67 U/GJqeori75-301Ioa [facility] HospitalComment on above:Performed By: #### TSH, CMP, LIPID #### [facility] [address] [address] [address] Philly HarmanT [Catalytic activity/Vol]21 U/CMggggi35-43Tgv [facility] HospitalComment on above:Performed By: #### TSH, CMP, LIPID #### [facility] [address] [address] [address] Philly [place] gap [Moles/Vol]10.9 mmol/LNormalThe [facility] Comment on above:Performed By: #### TSH, CMP, LIPID #### [facility] [address] [place] [address] Dr. Philly CedilloAST [Catalytic activity/Vol]16 U/UGipheg81-51Iic [facility] HospitalComment on above:Performed By: #### TSH, CMP, LIPID #### [facility] [address] [address] [address] Philly CedilloBilirubin [Mass/Vol]2.1 mg/dLCritically high0.2-1.0The [facility] HospitalComment on above:Performed By: #### TSH, CMP, LIPID #### [facility] [address] [place] [address] Dr. Philly CedilloCalcium [Mass/Vol]9.6 mg/dLNormal8.5-10.1[facility] Comment on above:Performed By: #### TSH, CMP, LIPID #### [facility] [address] [address] [address] Philly CeidlloChloride [Moles/Vol]102 mmol/KQhpgct36-741Pll [facility] Comment on above:Performed By: #### TSH, CMP, LIPID #### [facility] [address] [address] [address] Philly CedilloCO2 [Moles/Vol]32.2 mmol/LCritically high21.0-32.0The [facility] HospitalComment on above:Performed By: #### TSH, CMP, LIPID #### [facility] [address] [address] [address] Philly CedilloCreatinine [Mass/Vol]0.66 mg/dLNormal0.55-1.02The [facility] HospitalComment on above:Performed By: #### TSH, CMP, LIPID #### [facility] [address] [address] [address] Philly MontalvoGFR-AF TRISTANIAN>60Normal>=60The [facility] HospitalComment on above:Performed By: #### TSH, CMP, LIPID #### [facility] [address] [address] [address] Philly MontalvoGFR-NON AF TRISTANIAN>60Normal>=60The [facility] HospitalComment on above:Performed By: #### TSH, CMP, LIPID #### [facility] [address] [address] [address] Philly CedilloGlobulin (S) [Mass/Vol]3.2 g/dLNormalThe [facility] HospitalComment on above:Performed By: #### TSH, CMP, LIPID #### [facility] [address] [address] [address] Philly CedilloGlucose [Mass/Vol]95 mg/uARqehot90-511Ohp [facility] Comment on above:Performed By: #### TSH, CMP, LIPID #### [facility] [address] [address] [address] Philly CedilloPotassium [Moles/Vol]4.1 mmol/LNormal3.5-5.1[facility] Comment on above:Performed By: #### TSH, CMP, LIPID #### [facility] [address] [address] [address] Philly CedilloProtein [Mass/Vol]7.5 g/dLNormal6.4-8.2[facility] Comment on above:Performed By: #### TSH, CMP, LIPID #### [facility] [address] [address] [address] Philly CedilloSodium [Moles/Vol]141 mmol/YCdscrp537-480Ftc [facility] Comment on above:Performed By: #### TSH, CMP, LIPID #### [facility] [address] [place] [address] Dr. Philly CedilloUrea nitrogen [Mass/Vol]18.0 mg/dLNormal7.0-18.0[facility] HospitalComment on above:Performed By: #### TSH, CMP, LIPID #### [facility] [address] [place] [address] Dr. Philly Genao nitrogen/Creatinine [Mass ratio]27.3 mg/mgNormalThe [facility] HospitalComment on above:Performed By: #### TSH, CMP, LIPID #### [facility] [address] [place] [address] Dr. Philly Marquez 52-16-0636CAU2.587 uIU/mLNormal0.358-3.740[facility] Memorial HospitalComment on above:Performed By: #### TSH, CMP, LIPID #### [facility] [address] [place] [address] Dr. Philly CedilloFormerly [facility] Educationon 91-41-4568Vxorbzp EducationUrology Kidney Stones Kidney stones are rock-like masses [...] make too much parathyroid hormone (primary hyperparathyroidism). ? A buildup of a type of [...] the ribs (flank pain). Pain usually spreads (radiates)to the groin. ? Needing to pee often [...] these instructions at home: Medicines ? Take qgvm-jfu-smpagez and prescription medicines only as told by [...] (NKF): www.kidney.org ? [facility] [facility] (UCF): www.urologyhealth.org Contact a doctor if: ? You have [...] 10/19/2008 Document Revised: 09/19/2019 Document Reviewed: 09/19/2019 SeeOn Patient Education ? 2019 FinalCAD.[facility] RAD - MISCon 09-61-3375CWS - [facility] [id number]:127NormalClermont County HospitalUrology Office/Clinic Noteon 22-37-1899Yaydvrg Office/Clinic NoteChief Complaint Pt is here for 1 year [...] stable 4mm RT nephrolith. KUB done 02/18/2021 showsgrossly stable right nephrolithiasis. Pt states no kidney [...] 1 yr w/KUB Patient Education Kidney Stones, [facility]Tr[facility], personally scribed for Dr. Hodges on 03/25/2022 [...] mRNA-1273 vaccine 08/30/2020 R (more content not included)...[facility] CenterComment on above:Result Comment: Electronically Signed By: Silvia Hodges MD\.br\Date and Time Signed: 03/25/22 09:43EST\.br\Electronically Co-Signed By: Trinity Cagle\.br\Date and Time Co-Signed: 03/25/22 09:42 ESTXR KUB 1 VIEWon 91-11-6544UR KUB 1 VIEWEXAMINATION: XR KUB 1 VIEW HISTORY: Kidney stone [...] Electronically authenticated by: JESSICA POWELL Date: 2022-03-23 17:33[facility] Memorial HospitalXR hand LT min 3V*on 53-14-3469RA hand LT min 3V*[facility] [employer] Other XR hand LT min 3V*[facility] Other XR hand LT min 3V*Irma Cisse [facility] [employer] Other XR hand LT min 3V*JOHANNE Richardson [address]JtclxSwedish Medical Center Issaquah [employer] Other XR hand LT min 3V*XRay ReportHouma [facility] Other XR hand LT min 3V*SignedHouma [facility] Other XR hand LT min 3V*Patient: Jazlyn Hernandes MR#: [id number] [facility] [employer] Other XR hand LT min 3V*: 1960 Acct:[id number] [facility] Other XR hand LT min 3V*Age/Sex: 61 / F ADM Date: 11/22/21 [place] [facility] Other XR hand LT min 3V*[facility]: Type: [facility] [employer] Other XR hand LT min 3V*Attending Dr: Brittany HAYES [place] [facility] Other XR hand LT min 3V*Copies to: ABIGAIL Mckeon [place] [facility] Other XR hand LT min 3V*Ordering Provider: BLESSING [facility] Other XR hand LT min 3V*Date of Service: 11/22/21[place] [facility] Other XR hand LT min 3V* XR/XR hand LT min 3V*: Left hand painNotexas county memorial hospital [facility] Other XR hand LT min 3V*3 viewsLEFT hand plain filmHouma [facility] Other XR hand LT min 3V*COMPARISON:[facility] Other XR hand LT min 3V*HISTORY:LEFT hand injuryHouma [facility] Other XR hand LT min 3V*Fracture involving the base of the 5th proximal phalanx identified. No dislocation.[employer] Other XR hand LT min 3V* XR/XR hand LT min 3V*[employer] Other XR hand LT min 3V*IMPRESSION:LEFT 5th proximal phalanx fractureHouma [facility] Other XR hand LT min 3V*Impression dictated by: Mark Mathur M.D.11/22/2021 12:00 [facility] Other XR hand LT min 3V*Dictation Location: [address] [facility] Other XR hand LT min 3V*Transcribed By: CECY 11/22/21 [facility] [employer] Other XR hand LT min 3V*Dictated By: Mark Mahtur DO 11/22/21 115[address] [facility] Other XR hand LT min 3V*Signed By:[employer] Other XR hand LT min 3V*11/22/[address] [place], [place] [address] Other XR hand LT min 3V*[facility] Main [place] [address] [place] [address] XRay Report Signed Patient: Jazlyn Hernandes MR#: [id number] : 1960 Acct:[id number] Age/Sex: 61 / F ADM Date: 11/22/21 Loc: XDUCLY Room: Type: [facility] Attending Dr: Brittany HAYES Copies to: ABIGAIL Mckeon Ordering Provider: ABIGAIL Mckeon Date of Service: 11/22/21 XR/XR hand LT min 3V*: Left hand pain 3 viewsLEFT hand plain film COMPARISON:None HISTORY:LEFT hand injury Fracture involving the base of the 5th proximal phalanx identified. No dislocation. XR/XR hand LT min 3V* IMPRESSION:LEFT 5th proximal phalanx fracture Impression dictated by: Makr Mathur M.D.11/22/2021 12:00 PM Dictation Location: [place] [address] Transcribed By: [facility] 11/22/21 1200 Dictated By: Mark Mathur DO 11/22/21 1154 Signed By: 11/22/21 1200[facility] HospitalAlbuminon 25-47-3777Nurlrwh [Mass/Vol]5.0 g/dLNormal3.6-5.1NParkview Health SpecialistComment on above: Performed By: #### PHOS, BMP, ALB #### [facility] [address], [place] [id number] Metabolic Panelon 74-70-9964Hznmv gap [Moles/Vol]16 mmol/YMzlrea92-92Mktcaglr [facility] SpecialistComment on above:Result Comment: Effective 05/22/2019 reference range changed.Performed By: #### PHOS, BMP, ALB #### [facility] [address], [place] [id number] [Mass/Vol]9.8 mg/dLNormal8.6-10.2NParkview Health SpecialistComment on above:Performed By: #### PHOS, BMP, ALB #### [facility] [address], [place] [id number] [Moles/Vol]104 mmol/UGxkara55-092Oofqkidg [facility] SpecialistComment on above:Performed By: #### PHOS, BMP, ALB #### [facility] [address], [place] [id number] [Moles/Vol]24 mmol/ZHcdzmn35-14Pimsmree [facility] SpecialistComment on above:Performed By: #### PHOS, BMP, ALB #### [facility] [address], [place] [id number] [Mass/Vol]0.7 mg/dLNormal0.6-1.4Nortsierra [facility]ern [facility] SpecialistComment on above:Performed By: #### PHOS, BMP, ALB #### [facility] [address], [place] [id number] mL/min/1.24w1Paccaq>60NortPremier [facility] SpecialistComment on above:Performed By: #### PHOS, BMP, ALB #### [facility] [address], [place] [id number] mL/min/1.38r8Awxhxm>60[facility]ortPrem[facility] SpecialistComment on above:Performed By: #### PHOS, BMP, ALB #### [facility] [address], [place] [id number] [Mass/Vol]101 mg/sBHozc86-75Lbbphcfv [facility] SpecialistComment on above:Result Comment: For FASTING Glucose --- ADA reference ranges: Normal 65-99 mg/dl Prediabetes 100-125 Diabetes >/= 126Performed By: #### PHOS, BMP, ALB #### [facility] [address], [place] [id number] [Moles/Vol]4.3 mmol/LNormal3.5-5.5NortPrem[facility] SpecialistComment on above:Performed By: #### PHOS, BMP, ALB #### [facility] [address], [place] [id number] [Moles/Vol]140 mmol/MAuwvzf261-836Unntrdfa [facility] SpecialistComment on above:Performed By: #### PHOS, BMP, ALB #### [facility] [address], [place] [id number] nitrogen [Mass/Vol]15 mg/dLNormal7-25NortPrem[facility] SpecialistComment on above:Performed By: #### PHOS, BMP, ALB #### [facility] [address], [place] [id number] Hormone, [place] 56-38-0593WOP13.58 pg/mLNormal 16.00-65.00NoProMedica Memorial Hospital SpecialistComment on above:Performed By: #### PTH* #### [facility] [address], [place] [id number] 49-29-1414Dbcojvdlm [Mass/Vol]3.3 mg/dLNormal 2.2-4.4NoProMedica Memorial Hospital SpecialistComment on above:Performed By: #### PHOS, BMP, ALB #### [facility] [address], [place] [id number] 44-36-0694Magjnlc [Mass/Vol]10.4 mg/dLHigh8.6-10.2 [facility] SpecialistComment on above:Performed By: #### CA #### [facility] [address], [place] [id number] Blood Count with Auto Diffon 98-26-3740Bhiuwobzu (Bld) [#/Vol]0.03 10*3/uLNormal0.00-0.20NoProMedica Memorial Hospital SpecialistComment on above:Performed By: #### TSH, CMP, VITD, LIPD, CBCAD #### [facility] [address], [place] [id number]/100 WBC (Bld)0.7 %NormalNoProMedica Memorial Hospital SpecialistComment on above:Performed By: #### TSH, CMP, VITD, LIPD, CBCAD #### [facility] [address], [place] [id number] (Bld) [#/Vol]0.13 10*3/uLNormal0.02-0.50NoProMedica Memorial Hospital SpecialistComment on above:Performed By: #### TSH, CMP, VITD, LIPD, CBCAD #### [facility] [address], [place] [id number]/100 WBC (Bld)3.1 %NormalKettering Health SpecialistComment on above:Performed By: #### TSH, CMP, VITD, LIPD, CBCAD #### [facility] [address], [place] [id number] distribution width (RBC) [Ratio]12.0 %Normal 11.0-15.0[facility] SpecialistComment on above:Performed By: #### TSH, CMP, VITD, LIPD, CBCAD #### [facility] [address], [place] [id number] (Bld) [Volume fraction]41.4 %Xpddrr18.0-47.0 [facility] SpecialistComment on above:Performed By: #### TSH, CMP, VITD, LIPD, CBCAD #### [facility] [address], [place] [id number] (Bld) [Mass/Vol]13.5 g/iLWvchln10.6-15.5[facility] – JacksonComment on above:Performed By: #### TSH, CMP, VITD, LIPD, CBCAD #### [facility] [address], [place] [id number] (Bld) [#/Vol]1.3 10*3/uLNormal0.9-3.9[facility] SpecialistComment on above:Performed By: #### TSH, CMP, VITD, LIPD, CBCAD #### [facility] [address], [place] [id number]/100 WBC (Bld)30.5 %NormalKettering Health SpecialistComment on above:Performed By: #### TSH, CMP, VITD, LIPD, CBCAD #### [facility] [address], [place] [id number] (RBC) [Entitic mass]30.9 soBehaeq33.0-33.0[facility] SpecialistComment on above:Performed By: #### TSH, CMP, VITD, LIPD, CBCAD #### [facility] [address], [place] [id number] (RBC) [Mass/Vol]32.6 g/bVIwhjis48.0-36.0N[facility]Prem[facility] SpecialistComment on above:Performed By: #### TSH, CMP, VITD, LIPD, CBCAD #### [facility] [address], [place] [id number] (RBC) [Entitic vol]95 hCPqgriv57-974Rfmnharu [facility] SpecialistComment on above:Performed By: #### TSH, CMP, VITD, LIPD, CBCAD #### [facility] [address], [place] [id number] (Bld) [#/Vol]0.3 10*3/uLNormal0.2-0.9NoProMedica Memorial Hospital SpecialistComment on above:Performed By: #### TSH, CMP, VITD, LIPD, CBCAD #### [facility] [address], [place] [id number]/100 WBC (Bld)7.5 %NormalNortPremier Health [facility] SpecialistComment on above:Performed By: #### TSH, CMP, VITD, LIPD, CBCAD #### [facility] [address], [place] [id number] (Bld) [#/Vol]2.4 10*3/uLNormal1.5-7.8NoProMedica Memorial Hospital SpecialistComment on above:Performed By: #### TSH, CMP, VITD, LIPD, CBCAD #### [facility] [address], [place] [id number]/100 WBC (Bld)58.0 %NormalNoProMedica Memorial Hospital SpecialistComment on above:Performed By: #### TSH, CMP, VITD, LIPD, CBCAD #### [facility] [address], [place] [id number] mean volume (Bld) [Entitic vol]9.90 fLNormal 7.50-12.50NortPrem[facility] SpecialistComment on above:Performed By: #### TSH, CMP, VITD, LIPD, CBCAD #### [facility] [address], [place] [id number] (Bld) [#/Vol]255 10*3/cMOiwvnr250-742Uijebqxz [facility] SpecialistComment on above:Performed By: #### TSH, CMP, VITD, LIPD, CBCAD #### [facility] [address], [place] [id number] (Bld) [#/Vol]4.37 10*6/uLNormal3.90-5.20[facility]ortPrem[facility] SpecialistComment on above:Performed By: #### TSH, CMP, VITD, LIPD, CBCAD #### [facility] [address], [place] [id number]-CC99.7 fJVuumtf97.0-50.0NortPremier Health Upper Valley Medical CenterSas Etl Developer Comment on above:Performed By: #### TSH, CMP, VITD, LIPD, CBCAD #### [facility] [address], [place] [id number] (Bld) [#/Vol]4.1 10*3/uLNormal3.8-11.0NoProMedica Memorial Hospital SpecialistComment on above:Performed By: #### TSH, CMP, VITD, LIPD, CBCAD #### [facility] [address], [place] [id number] Metabolic Panelon 13-29-1410Llukcex [Mass/Vol] 5.0 g/dLNormal3.6-5.1NortherUniversity Hospitals Ahuja [facility] SpecialistComment on above:Performed By: #### TSH, CMP, VITD, LIPD, CBCAD #### [facility] [address], [place] [id number]/Globulin [Mass ratio]2.5 {ratio}Normal1.0-2.5NoProMedica Memorial Hospital SpecialistComment on above:Performed By: #### TSH, CMP, VITD, LIPD, CBCAD #### [facility] [address], [place] [id number] [Catalytic activity/Vol]85 U/SBspqhl34-716Nhxjmlwk [facility] SpecialistComment on above:Performed By: #### TSH, CMP, VITD, LIPD, CBCAD #### [facility] [address], [place] [id number] [Catalytic activity/Vol]14 U/LNormal6-33NoProMedica Memorial Hospital SpecialistComment on above:Result Comment: 04/16/2021 Female reference range changed.Performed By: #### TSH, CMP, VITD, LIPD, CBCAD #### [facility] [address], [place] [id number] gap [Moles/Vol]18 mmol/YAlrxsx93-55Ttiirpza [facility] SpecialistComment on above:Result Comment: Effective 05/22/2019 reference range changed.Performed By: #### TSH, CMP, VITD, LIPD, CBCAD #### [facility] [address], [place] [id number] [Catalytic activity/Vol]14 U/LNormal9-34NoProMedica Memorial Hospital SpecialistComment on above:Performed By: #### TSH, CMP, VITD, LIPD, CBCAD #### [facility] [address], [place] [id number] [Mass/Vol]1.11 mg/dLNormal0.30-1.20NoProMedica Memorial Hospital SpecialistComment on above:Performed By: #### TSH, CMP, VITD, LIPD, CBCAD #### [facility] [address], [place] [id number]/CREA33 RatioHigh6-22NoProMedica Memorial Hospital Specialist Comment on above:Performed By: #### TSH, CMP, VITD, LIPD, CBCAD #### [facility] [address], [place] [id number] [Mass/Vol]10.5 mg/dLHigh8.6-10.2[facility] SpecialistComment on above:Performed By: #### TSH, CMP, VITD, LIPD, CBCAD #### [facility] [address], [place] [id number] [Moles/Vol]103 mmol/RLwvwiy25-360Rbxuhrzj [facility] SpecialistComment on above:Performed By: #### TSH, CMP, VITD, LIPD, CBCAD #### [facility] [address], [place] [id number] [Moles/Vol]27 mmol/IVxwfun17-75Gwhdbrwu [facility] SpecialistComment on above:Performed By: #### TSH, CMP, VITD, LIPD, CBCAD #### [facility] [address], [place] [id number] [Mass/Vol]0.6 mg/dLNormal0.6-1.4[facility] SpecialistComment on above:Performed By: #### TSH, CMP, VITD, LIPD, CBCAD #### [facility] [address], [place] [id number] mL/min/1.35n4Zpchai>60NortPrem[facility] SpecialistComment on above:Performed By: #### TSH, CMP, VITD, LIPD, CBCAD #### [facility] [address], [place] [id number] mL/min/1.53b9Falyrg>60[facility]ortPrem[facility] SpecialistComment on above:Performed By: #### TSH, CMP, VITD, LIPD, CBCAD #### [facility] [address], [place] [id number] (S) [Mass/Vol]2.0 g/dLNormal1.9-3.7NortPrem[facility] SpecialistComment on above:Performed By: #### TSH, CMP, VITD, LIPD, CBCAD #### [facility] [address], [place] [id number] [Mass/Vol]101 mg/xALhxq92-30Ishcayms [facility] SpecialistComment on above:Result Comment: For FASTING Glucose --- ADA reference ranges: Normal 65-99 mg/dl Prediabetes 100-125 Diabetes >/= 126Performed By: #### TSH, CMP, VITD, LIPD, CBCAD #### [facility] [address], [place] [id number] [Moles/Vol]4.6 mmol/LNormal3.5-5.5NoProMedica Memorial Hospital SpecialistComment on above:Performed By: #### TSH, CMP, VITD, LIPD, CBCAD #### [facility] [address], [place] [id number] [Mass/Vol]7.0 g/dLNormal6.1-8.1[facility] SpecialistComment on above:Performed By: #### TSH, CMP, VITD, LIPD, CBCAD #### [facility] [address], [place] [id number] [Moles/Vol]143 mmol/SLlutdw436-255Qbhveejv [facility] SpecialistComment on above:Performed By: #### TSH, CMP, VITD, LIPD, CBCAD #### [facility] [address], [place] [id number] nitrogen [Mass/Vol]20 mg/dLNormal7-25NortPrem[facility] SpecialistComment on above:Performed By: #### TSH, CMP, VITD, LIPD, CBCAD #### [facility] [address], [place] [id number] Panelon 78-26-7296Egcszhkyxib [Mass/Vol]249 mg/dLHigh 125-200NortPrem[facility] SpecialistComment on above:Result Comment: Low risk < 200mg/dL Borderline risk 201-239 mg/dl High risk > or equal to 240Performed By: #### TSH, CMP, VITD, LIPD, CBCAD #### [facility] [address], [place] [id number] in HDL [Mass/Vol]58 mg/dLNormal>40N[facility] SpecialistComment on above:Result Comment: High Cardiovascular Risk HDL <40 mg/dL Low Cardiovascular Risk HDL > or equal to 60 mg/dlPerformed By: #### TSH, CMP, VITD, LIPD, CBCAD #### [facility] [address], [place] [id number] in LDL [Mass/Vol]174 mg/dLNormalNoProMedica Memorial Hospital SpecialistComment on above:Result Comment: LDL ATP III CLASSIFICATION LDL less than 100 mg/dl Optimal LDL 100-129 mg/dl Near or above optimal LDL 130-159 Borderline high LDL 160-189 High LDL greater than 189 mg/dl Very HighPerformed By: #### TSH, CMP, VITD, LIPD, CBCAD #### [facility] [address], [place] [id number] in VLDL [Mass/Vol]17 mg/dLNormalKettering Health SpecialistComment on above:Performed By: #### TSH, CMP, VITD, LIPD, CBCAD #### [facility] [address], [place] [id number].total/Cholesterol in HDL [Mass ratio]4 {ratio} NormalNortsierra vista regional health centern [facility] SpecialistComment on above:Performed By: #### TSH, CMP, VITD, LIPD, CBCAD #### [facility] [address], [place] [id number] [Mass/Vol]84 mg/qPRgsvtp30-026Upkrujcj [facility] SpecialistComment on above:Result Comment: TRIG ATPIII CLASSIFICATIONS TRIG less than 150 mg/dl Normal TRIG 150-199 mg/dl Borderline High TRIG 200-500 mg/dl High TRIG greather than 500 mg/dl Very HighPerformed By: #### TSH, CMP, VITD, LIPD, CBCAD #### [facility] [address], [place] [id number] 99-93-0607EHQ6.559 uIU/mLNormal0.400-4.500Northern [facility] SpecialistComment on above:Performed By: #### TSH, CMP, VITD, LIPD, CBCAD #### [facility] [address], [place] [id number] D 25-OHon 40-25-1131NSY D 25 OH36 ng/mlNormal>29 [facility] Medical SpecialistComment on above:Result Comment: Vitamin D Status Deficiency <20 ng/mL Insufficiency 20-29 ng/mL Optimal 30-100 ng/mL Possible Toxicity >=150 ng/mLPerformed By: #### TSH, CMP, VITD, LIPD, CBCAD #### [facility] [address] [place], [place] [id number] Vital Signs Date TimeVital SignValuePerforming PshrtywbkTngljolu14-12-8206 11:02-0400 Diastolic blood zyrgwnyu14 mm[Hg]DO [employer] Work Phone: [phone]03-30-2023 11:02-0400 Heart rate76 /[employer] Work Phone: [phone]03-30-2023 11:02-0400 Respiratory rate16 /buildabrandO [facility] Work Phone: [phone]03-30-2023 11:02-0400 SaO2% (BldA) [Mass fraction]100 %DO [facility] Work Phone: [phone]03-30-2023 11:02-0400 Systolic blood lpmdleuo281 mm[Hg]DO [facility] Work Phone: [phone]03-30-2023 09:29-0400 Body aixzja086.64 cmDO [facility] Work Phone: [phone]03-30-2023 09:29-0400 Body cfxdsrmynkr25.3 [degF]DO [facility] Work Phone: [phone]03-30-2023 09:29-0400 Body ikzlea38.03 kgDO [facility] Work Phone: [phone]11-09-2022 08:29-0500 Blood Pressure [facility]11-09-2022 08:29-0500Diastolic blood fonhamex34 mm[Hg]Silvia Lue [facility]11-09-2022 08:29-0500Heart rate80 /minKathy Lue [facility]11-09-2022 08:29-0500Systolic blood mm[Hg]Silvia Lue [facility]07-09-2022 10:55-0400Body .64 cmPamela Itzel Other [facility] Other 07-09-2022 10:55-0400Body mass index (BMI) [Ratio] 24.69 kg/v2Iogoth Itzel Other [facility] Other 07-09-2022 10:55-0400Body dkdhsrfiqqp76 [degF]Brittany Itzel Other [facility] Other 07-09-2022 10:55-0400Body lbwohy79.4 kgPaarmando Robbins Other [facility] Other 07-09-2022 10:55-0400Diastolic blood fwtwfmwe28 mm[Hg] Brittany Itzel Other [facility] Other 07-09-2022 10:55-0400Respiratory rate18 /minBrittany Itzel Other [facility] Other 07-09-2022 10:55-9874HxV5% (BldA) [Mass fraction]100 % Brittany Robbins Other [facility] Other 07-09-2022 10:55-0400Systolic blood quzsaeaj168 mm[Hg] Brittany Robbins Other [facility] Other Encounters Encounter DateEncounter TypeCare ProviderFacilityStart: 04-29-2023 End: 10-10-1904ffhjvqevnfJsqtswwz Ball Other [employer] Other Start: 20-61-7846Kcmbssyda encounterBenjamin BallFPG [facility] ClinicStart: 04-19-2023 End: 21-89-7300vxpejwachrFhqlgcec Ball Other [facility] Other Start: 74-93-2973Jwvdbameh encounterBenjamin BallFPG [facility] ClinicStart: 09-08-2022 End: 13-06-9998mxwsokswltYcbq Asaad Other [employer] Other Start: 14-72-8679Nsedwtjwo encounterImad AsaadFPG Referral CoordinatorStart: 86-03-6390Cwkkmeqcb encounterBenjamin BallFPG [facility] ClinicStart: 08-13-2022 End: 16-22-0384Rqsztpeob to same day surgery [facility] [employer] Work Phone: [facility] Work Phone: Start: 08-13-2022 End: 01-38-4993hoorsqmcwxMI [employer] Work Phone: [facility] Work Phone: Start: 07-20-2022 End: 32-21-4269vpfhzccridJcee Asaad Other [facility] Other Start: 89-60-0575Qytqrrsgt encounterImad AsaadFPG Referral CoordinatorStart: 07-13-2022 End: 77-34-7949djnwobjzpuYlfmmfsj Ball Other [facility] Other Start: 31-19-7388Bskchuvbd encounterBenjamin BallFPG [facility] ClinicStart: 06-29-2022 End: 77-76-5618mnyrpmzxmeNuqggxfr Ball Other [employer] Other Start: 14-11-5016Frcatuifw encounterBenjamin BallFPG [facility] ClinicStart: 06-23-2022 End: 10-12-7098ovnoighmzpFgytieuw Ball Other [employer] Other Start: 30-33-4106Qolvecqxk encounterBenjamin BallFPG [facility] ClinicStart: 24-11-5500Xopbtxnrl encounterBenjamin BallFPG [facility] ClinicStart: 06-11-2022 End: 72-03-7982pusfqtqhxuXA FCO BALLFacility:U7Sirai: 06-10-2022 End: 30-02-5432vpotdmrydnFtoizslv Ball Other [employer] Other Start: 24-56-0822Drofvfzts encounterBenjamin BallFPG [facility] ClinicStart: 04-27-2022 End: 59-63-1038thzwdtvjulPR FCO BALLFacility:J1Grkpi: 80-11-4816Kkmzgrehv for general adult medical examination without abnormal findingsDR FCO BALL [facility] Hospitaltart: 04-17-2022 End: 80-53-1294ucagiuotcmAK FCO BALLFacility:G1Dozfj: 04-17-2022 End: 25-88-1920Hufrmkuzr for general adult medical examination without abnormal findingsDR FCO BALLFacility:M6Gxnqe: 03-25-2022 End: 64-45-3719whuouutaehZqpjv M. LueFacility:EU [facility] HamiltonueStart: 03-25-2022 End: 30-77-5960Oyeqjvj encounter procedureKatelle Woody Lulashonda [facility] start: 03-23-2022 End: 35-74-2752efbupurzrsOEDanisha GLASGOWFacility:T5Opxfv: 70-08-5868Sdxczs outpatient new 30 minutesPamela DymondFPG Urgent Care ClydeStart: 11-22-2021 End: 55-48-3626bctllombsoFqcxqm DymondNort [facility] Other Start: 00-88-1564zkhuvhgjiuNA AME SUTTON Facility: Procedures DateProcedureProcedure DetailPerforming ClinicianStart: 60-86-1058Qrzxsvkqa colonoscopyDO [employer] Work Phone: Start: 84-99-1268Bsisllrfuhspfn shockwave lithotripsy of calculus of kidneyKathy Lue ColonoscopyKathy Lue Plan of Treatment DateCare ActivityDetailAuthorStart: 54-48-5321KxlkudchcMercy Memorial Hospital Patient EducationHemorrhoids (DC)[facility] Work Phone: Immunizations Immunization DateImmunizationNotesCare IynibjhrMxgmavdk91-56-0334uwsffbexa virus vaccine, split virus (incl. purified surface antigen)[facility] [place] Other nort [facility] Other [id number] vaccine recombinantKathy Lue [facility]12-28-2021zoster vaccine recombinantKathy Lue [facility]12-07-2021SARS-CoV-2 (COVID-19) mRNA-1273 vaccineKathy Lue [facility]04-16-2021SARS-CoV-2 (COVID-19) mRNA-1273 vaccineKathy Lue [facility]03-19-2021SARS-CoV-2 (COVID-19) mRNA-1273 vaccineKathy Lue [facility]01-01-2021SARS-CoV-2 (COVID-19) mRNA-1273 vaccineKathy Lue [facility] Medical CenterComment on above:Result Comment: pt is fully vaccinated but can not remember the -62-2831uksotryvq virus vaccine, unspecified formulation Silvia Lue [facility]09-01-2020influenza virus vaccine, unspecified formulationKathy Lue [facility]11-14-2018tetanus toxoid, reduced diphtheria toxoid, and acellular pertussis vaccine, adsorbedKathy Lue [facility] Payers DatePayer CategoryPayerPolicy [id number] [id number] 2..[id number] 2.16.840.1.696783.3.57[id number] 2.16.840.1.055312.3.57[id number] 2.16.840.1.574651.3.579.[id number] 2.16.840.1.432723.3.579.2.23351-67-6459Naga-[id number] [id number] 2.1[id number] 2.16.840.1.04591[id number] 2.16.840.1.539557.3.579.2.531 Social History DateTypeDetailFacilitySex Assigned At [facility]ertart: 04-18-2020 End: 67-33-1882Hrbraph smoking statusNever smoked tobacco (finding)[facility]: 79-18-6038Fqf Assigned At [facility] Goals DatePatient GoalDesired Activity/State Functional Status EhdrClherwtqlbBkpwkqZupirxxr01-94-8260Qtnmsdeaki StatusN/AExec[facility] Clinical Notes 11-22-2021 to 08-13-2022 Note Date & RzobRsmdSzkdjyht63-55-1576 [facility]Mer[facility]03-[facility]-2023 History general Narrative - Reported* Type Description Date Medical History Hypertension Medical HistoryHypothyroidismSurgical Historythyroidectomy, subtotalSurgical HistoryColonoscopy07/2022Hospitalization Historysee above [facility] Other 01-26-2023 Evaluation note* Encounter Date Diagnosis Assessment Notes Treatment Notes Treatment Clinical Notes May, Diarrhea of presumed infectious origin (ICD-10 - R19.7) [facility] Other 11-09-2022 Hospital Discharge instructions Patient Education 03/25/2022 08:50:27 Kidney Stones, Uuwt-kq-Jvyv Kidney Stones Kidney stones are rock-like masses [...] Follow these instructions at home: Medicines Take exym-jnd-bovjrjk and prescription medicines only as told by [...] 10/19/2008 Document Revised: 09/19/2019 Document Reviewed: 09/19/2019 [employer] Patient Education 2020 FinalCAD. Follow Up Care 02/20/2021 09:03:25 With:Carroll SCOTT, RICHELLE Lebron, [facility] Address: When: Unknown [facility] 07-09-2022 Evaluation note* Encounter Date Diagnosis Assessment Notes Treatment Notes Treatment Clinical Notes Nov, Left hand pain (ICD-10 - M79.642 ) Nov,losed nondisplaced fracture of proximal phalanx of left little finger, initial encounter (ICD-10 -S62.647A)ForFinger fracture home care material was printed Wear the splint until seen by your orthopedic doctor in follow-up. Call your orthopedic doctor on Wednesday for an appointment recheck as soon as possible. Take Tylenol or Motrin as needed for pain. Iceand elevate your hand 2-3 times a day. Go to the ER for worsening symptoms or concerns. [employer] Other Evaluation + Plan note No data available for this section [facility] [facility] evaluation noteNo InformationNort [facility] Other Evaluation noteNo assessment information available [facility] Work Phone: History and physical note Author Jessica Parada [facility] August 13, 2022 10:05amNote Date/TimeMarch 2022 10:05[place] [address] Gastroenterology H&P Signed Patient: Jazlyn Hernandes MR#: [id number] : 1960 Acct:[id number] Age/Sex: 61 / F Adm Date: 3 Loc: Room: Type: [facility] Attending Dr: Jessica Parada MD Copies to: DO Jessica Jones MD~ Date of Service: 08/13/2022 HISTORY & PHYSICAL: Patient's history with special attention to the cardiovascular, pulmonary systems and the current problem was reviewed with the patient immediately prior to the procedure. Present medications and doses reviewed in the EMR. Allergies and pertinent laboratory tests were also re viewedat this time in the EMR. The physical [...] signed by Jessica Parada MD> 08/13/22 1005 [facility] Work Phone: History general Narrative - Reported* Type Description Date Medical History Hypertension Medical HistoryHypothyroidismSurgical Historythyroidectomy, subtotal Hospitalization Historysee above [facility] Other Hospital Discharge instructions Additional Instructions DISCHARGE [...] NOT operate machinery such as power tools, lawn mowers, snow blowers, sewing machines, etc. for [...] years -Follow up with PCP. -Office number [phone]. [facility] Work Phone: Progress note No data available for this section [facility] reason for referral (narrative)* Reason 08/13/22 @ [facility] Re heather for screening colonoscopy Diagnosis 1 Screening for colon cancer (Z12.11) Referral Organization [facility] Kaden darby Referring Provider First Name Fco Referring Provider Last Name Pee Referring Provider Specialty Internal Me dicine Referred Organization [facility] Gastroenterolo gy Referred Provider Bubba Rebollar Referred Address [address],[address] Referred Provider Specialty Gastroentero logy Referral Priority Routine Referral Appointment Date 2022-08-13 General Notes Patient is being ref erred for a screening colonoscopy. She is an asymptomatic, low risk patient. Batsheva Marcum 06/30/2022 11:15:14 AM >received today, sent P2P Neris Healy 07/20/2022 03:13:35 PM >COLON WITH ASAAD ON 08/13/22Clinical Notes This patient has intermittent loose BM but denies abdominal pain, unexplained weight loss, nausea, indigestion, heartburn, dysphagia, melena or hematochezia. [facility] Other Summary Purpose Family History Relationship Condition Age at Onset Recorded Date/T celestine Not Specified Hypertension Unknown HyperlipidemiaUnknownfatherHypertensionUnknownfamily memberMalignant neoplasm of lungUnknown Advance Directives Advance Directive Response Recorded Date/ Time Advance Directives No November 25 10:56am Chief Complaint and Reason for Visit Chief Complaint Screening Additional Source Comments INFORMATION SOURCE (unrecogn ized section and content) DATE CREATED AUTHOR 08/29/2021 [facility] Sas Etl Developer DATE CREATED AUTHOR AUTHOR'S ORGANIZ ATION 03/25/2022 [facility] DATE CREATED AUTHOR AUTHOR'S ORGANIZ ATION 06/16/2022 [facility] DATE CREATED AUTHOR AUTHOR'S ORGANIZ ATION 08/21/2022 [facility] REASON FOR VISIT (unrecogniz ed section and content) LEFT HAND INJURY FROM FALLdi arrhea/unformed stoolNo InformationTest ResultsReferralEGDREFERRAL QUESTIONMAIL PPWNo InformationGASTRO REPORTS READYLab resultsmamm results Patient Care team informatio n (unrecognized section and content) Team Status: Active Member Role Status Dates Fco Glasgow DO Primary Care Provider Active Team Status: Inactive Member Role Status Dates Jessica Parada MD Attending Provider Active Danilo Jones Care ProviderActive FOR RECORDS PERTAINING TO PATIENTS WHO ARE [...] BE BASED ON THE PRIMARY CLINICAL RECORDS. [employer] provides no warranty or guarantee of the accuracy or completeness of information in this document.
[2025-04-27 09:01] LABS: Hematocrit 39.2 % (36.0-48.0); Hemoglobin 13.0 g/dL (12.0-16.0); Immature Granulocytes Abs Auto 0.02 10^3/uL (0.00-0.03); Immature Granulocytes Pct Auto 0.5 % (0.0-0.5); Lymphocytes Absolute Auto 1.0 10^3/uL (1.2-3.8); Mean Corpuscular HGB Conc 33.2 g/dL (29.9-35.2); Mean Corpuscular Hemoglobin 30.7 pg (26.7-34.0); Mean Corpuscular Volume 92.5 fL (81.0-99.0); Platelet Count 222 10^3/uL (150-450); Red Blood Count 4.24 10^6/uL (4.20-5.40); White Blood Count 3.8 10^3/uL (4.0-11.0)
[2025-04-27 09:28] LABS: Alanine Aminotransferase 26 U/L (14-59); Albumin Globulin Ratio 1.2; Albumin Level 4.0 g/dL (3.4-5.0); Alkaline Phosphatase 92 U/L (46-116); Anion Gap 13.8; Aspartate Amino Transferase 14 U/L (15-37); Blood Urea Nitrogen 15.0 mg/dL (7.0-18.0); Calcium 9.3 mg/dL (8.5-10.1); Carbon Dioxide 29.6 mmol/L (21.0-32.0); Chloride 105 mmol/L (98-107); Cholesterol 251 mg/dL (<=200); Estimated GFR (African America >60 (>=60 mL/min/1.73m^2); Estimated GFR (Non-African Ame >60 (>=60 mL/min/1.73m^2); Globulin 3.3 g/dL; Glucose 104 mg/dL (74-106); HDL Cholesterol 59 mg/dL (40-60); Potassium 4.4 mmol/L (3.5-5.1); Sodium 144 mmol/L (136-145); Thyroid Stimulating Hormone 0.605 uIU/mL (0.358-3.740); Total Protein 7.3 g/dL (6.4-8.2); Triglycerides 74 mg/dL (<=150); VLDL CHOLESTEROL 14.8 mg/dL
== END 2025-04-27 08:28 | disposition home or self-care (01) ==
LOC: LAB 08:28
PROVIDERS: PCP Internal Medicine; Visit Provider Internal Medicine
DX: Z00.00 Encounter for general adult medical examination without abnormal findings (principal)
CPT/HCPCS: 36415; 80053; 80061; 84443; 85025

== ENCOUNTER 2025-05-02 10:07 | Outpatient (OUT) | payer OTHER, SELFPAY ==
--- OUTSIDE RECORDS SUMMARY | 2025-05-02 10:09 | XMS_ITS | Clinical Summary ---
Author Organization [employer] tem Address [id number] [place] [address] Care Team Providers Care Instructor Extension Work Name Role Phone Fco Glasgow DO Primary Care Provider [phone] Allergies No known active allergies Medications MedicationSigDispense QuantityRefillsLast FilledStart DateEnd DateStatus levothyroxine (SYNTHROID, LEVOTHROID) 25 MCG tablet Take 25 mcg by mouth daily.Active lisinopril-hydrochlorothiazide (PRINZIDE,ZESTORETIC) 10-12.5 mg per tablet Take 1 tablet by mouth daily.Active emgbfowc-nuxq-WL-calcium &mins (THERAGRAN-M) 9 mg iron-400 mcg tablet Take 1 tablet by mouth daily.Active Family History Medical HistoryRelationNameCommentsHypertensionFatherHypertensionMotherBreast cancerNeg HxRelationNameStatusCommentsFatherAliveMotherAlive Social History Tobacco UseTypesPacks/DayYears UsedDateSmoking Tobacco: NeverSmokeless Tobacco: NeverAlcohol UseStandard Drinks/WeekCommentsYes7 (1 standard drink = 0.6 oz pure alcohol)ChildcareAnswerDate UdnzgfihPndcotsosHxvyhxt49/12/2019EmploymentAnswer Date JyxleonkZmjrvmohvuZyotrer86/12/2019Purpose - LifeAnswerDate RecordedPurpose and direction in bkuiUsqbqkg96/11/2021CommentsNoSex and Gender InformationValueDate RecordedSex Assigned at BirthNot on fileLegal SexFemale 12/20/2014 11:35 AM EDTGender IdentityNot on fileSexual OrientationNot on file Last Filed Vital Signs Vital SignReadingTime TakenCommentsBlood Lqpwbbyk603/9610 1:02 PM EDT Buzdz146202/23/2017 12:45 PM MEPGonmufzsnjo95.8 ??C (98.3 ??F)02/23/2017 10:43 AM EDTRespiratory Kfky6478 12:35 PM EDTOxygen Mmscvbinus938%02/23/2017 1:02 PM EDTInhaled Oxygen Concentration--Wtkftu09 kg (150 lb)04/25/2021 1:19 PM EST Zeattl705.6 cm (5' 6 )04/25/2021 1:19 PM ESTBody Mass Index24.21106/26/2020 1:19 PM EST Plan of Treatment Health MaintenanceDue DateLast DoneCommentsDepression Sxtahdnmj92/03/1973Tobacco Teqvxmqnb03/03/1973Adult BMI Ogotisqpl79/03/1979Pap Smear1981Colonoscopy 2005Zoster (Shingles) Vaccine (1 of 2)2010COVID-19 Vaccine ( season)512/11/2020, 08/30/2020, 08/02/2020Influenza Vaccine 509/, 02/26/2017, 02/26/2017DTaP,Tdap and Td Vaccines (2 - Td or Tdap)RSV ( or age 60+ yrs) (1 - 1-dose 75+ series) 09/17/2035 [employer] Not on file Insurance * Guarantor: Josefa HernandesAccount TypeRelation to PatientDate of BirthPhone Billing AddressPersonal/AvjgqkLygw73/03/1961 [address] [place] [address] Care Teams Team MemberRelationshipSpecialtyStart DateEnd Date Fco Glasgow DO [address] [place] [address] PCP - GeneralInternal Ofyhrlfx31/18/21
--- OUTSIDE RECORDS SUMMARY | 2025-05-02 10:09 | XMS_ITS | Clinical Summary ---
Author Organization [facility] Address [address] [place] [address] Care Team Providers Care Sound Art Instructor Name Role Phone Unavailable Primary Care Provider Unavailabl e Social History Tobacco UseTypesPacks/DayYears UsedDateSmoking Tobacco: Never Assessed CommentsUnknownSex and Gender InformationValueDate RecordedSex Assigned at Not on fileLegal YqlCrccei23/15/2023 7:35 PM EDTGender TzkjtxymWxpyts43/15/2023 7:35 PM EDTSexual OrientationNot on file Last Filed Vital Signs Vital SignReadingTime TakenCommentsBlood Mpdrxqrp908/8411 12:00 PM EST Pulse--Temperature--Respiratory Rate--Oxygen Saturation--Inhaled Oxygen Concentration--Woryoi09.3 kg (155 lb)11/25/2021 12:00 PM YWUWtzjer757.6 cm (5' 6 )11/25/2021 12:00 PM EDTBody Mass Index25.0207 12:00 PM EDT Plan of Treatment Not on file
--- NOTE | 2025-05-02 10:10 | MM_ITS ---
Patient Name: JAZLYN STEVEN MR#: [id number] : 1960 Exam Date: 05/02/2025 Ordering Doctor: DR LARY CALDERON D.O. RADIOLOGY REPORT PROCEDURE: MM TOMOSYNTHESIS SCREENING BI COMPARISON: MM TOMOSYNTHESIS SCREENING BI, 05/01/2024. MM TOMOSYNTHESIS SCREENING BI, 04/28/2023. MG MAMM SCREEN 3D RADHA CAD, 04/27/2022. MG MAMM SCREEN 3D RADHA CAD, 04/05/2020. INDICATIONS: Screening Calculator Name NCI Breast Cancer Risk Assessment Tool 5 Year Breast Cancer Risk 1.70% Lifetime Breast Cancer Risk 6.90% Personal Breast Cancer No Personal Ovarian Cancer No Treatments None Family Cancers Aunt-maternal with breast cancer at age 78; Uncle-maternal with lung cancer at age 65. LOCATION: [facility] BREAST COMPOSITION: The breasts are heterogeneously dense, which may obscure small masses. FINDINGS: RIGHT BREAST: No significant suspicious finding. LEFT BREAST: No significant suspicious finding. DIAGNOSTIC CATEGORY 1--NEGATIVE. RECOMMENDATIONS: ROUTINE MAMMOGRAM AND CLINICAL EVALUATION IN 12 MONTHS. Dictated by: Mark Mathur DO on 05/02/2025 at 11:38 Approved by: Mark Mathru DO on 05/02/2025 at 11:45
== END 2025-05-02 10:08 | disposition home or self-care (01) ==
LOC: MAMMO 10:07
PROVIDERS: PCP Internal Medicine; Visit Provider Internal Medicine
DX: Z12.31 Encounter for screening mammogram for malignant neoplasm of breast (principal); Z80.3 Family history of malignant neoplasm of breast; Z80.1 Family history of malignant neoplasm of trachea, bronchus and lung
CPT/HCPCS: 77063; 77067